=== PATIENT | male | born 1950 | race Caucasian/White ===

== ENCOUNTER 2016-10-04 15:34 | Emergency (ER) | payer MEDICARE, OTHER ==
[2016-10-04 15:57] VITALS: BP 112/72
--- NOTE | 2016-10-04 16:20 | EDM.PDOC ---
ED HPI LOWER BACK PAIN/INJURY - General Chief Complaint: Back Pain or Injury Stated Complaint: BACK PAIN Time Seen by Provider: 10/04/16 15:55 Source of Information: Reports: Patient History Limitations: Reports: No limitations - History of Present Illness INITIAL COMMENTS - FREE TEXT/NARRATIVE: Patient is a 65-year-old male with a history of chronic pain syndrome, chronic left-sided low back with sciatica, chronic sacroiliac joint pain, and degenerative disc disease. Patient complains of left lower back pain with no sciatica. Pain is located along the SI joint. It is worsened with palpation, movement, sitting for extended period of time, and lying on his side. Patient states he's been given steroid injections by a planning management it specialist. Last one was August 23, 2016 with minimal relief. He had MRI obtained September 23, 2016 indicating nerve impingement. His planning management it specialist has plans of burning this nerve on October 13, 2016. Patient was last evaluated August 23, 2016 by a planning management it specialist and prescribed hydrocodone #12 tabs. States he has been taking this medication off-and-on for the discomfort. Has tried ibuprofen and Tylenol recently was with minimal relief. He ran out of the hydrocodone. He does have a prior past history of taking tramadol to which had to be discontinued due increased confusion. He is here for pain therapy. The patient did drive himself to the ED. Denies any numbness or tingling, weakness, incontinence to urine or stool, or any additional complaints. Patient denies fever/chills, incontinence to urine or stool, numbness or tingling to his distal extremities, weakness, gait disturbance, or any additional focal neurological deficits. Patient has a past medical history of hypertension and anxiety. See medication list. Surgical history postlaminectomy syndrome, fusion L3-L5, cervical fusion C5-C6. - Related Data Allergies/ADRs: Allergies Allergy/AdvReac Type Severity Reaction Status Date / Time No Known Allergies Allergy Verified 10/25/15 18:18 Home Meds: Home Meds metFORMIN [Glucophage XR] 500 mg PO DAILY 03/19/14 [History] Lisinopril 10 mg PO DAILY 10/25/15 [History] Escitalopram [Lexapro] 20 mg PO DAILY 10/04/16 [History] amLODIPine [Norvasc] 10 mg PO DAILY 10/04/16 [History] Past Medical History HEENT History: Reports: Impaired vision Cardiovascular History: Reports: Hypertension Respiratory History: Reports: COPD, Other (see below) Other Respiratory History: agent orange exposure Other Musculoskeletal History: Back surgery Endocrine/Metabolic History: Reports: Diabetes, type II, Hypothyroidism - Past Surgical History Musculoskeletal Surgical History: Reports: Other (see below) Other Musculoskeletal Surgeries/Procedures:: lumbar and cervical surgeries Social & Family History - Tobacco Use Smoking Status *Q: Current Every Day Smoker Years of Tobacco use: 40 Packs/Tins Daily: 1 - Caffeine Use Caffeine Use: Reports: Coffee, Soda, Tea - Alcohol Use Days Per Week of Alcohol Use: 0 - Recreational Drug Use Recreational Drug Use: No ED ROS GENERAL - Review of Systems Review Of Systems: See Below GI/Abdominal: Reports: No symptoms : Reports: no symptoms Musculoskeletal: Reports: back pain Neurological: Denies: Numbness, Paresthesia, Tingling ED EXAM,LOWER BACK PAIN/INJURY - Physical Exam Exam: See Below Exam Limited By: No limitations General Appearance: alert, WD/WN, mild distress Ears: hearing grossly normal Throat/Mouth: Normal voice, No airway compromise Neck: normal inspection Respiratory/Chest: no respiratory distress, lungs clear, normal breath sounds Cardiovascular: normal peripheral pulses, regular rate, rhythm, no murmur GI/Abdominal: normal bowel sounds, soft, non tender, no organomegaly, no distention Back Exam: other (pain to the right SI joint. ). No: paraspinal tenderness, vertebral tenderness Extremities: normal inspection, normal range of motion, non-tender, no pedal edema, normal capillary refill Neurological: alert, normal mood/affect, normal dorsiflexion, normal plantar flexion, normal gait, no motor/sensory deficits, oriented x 3. No: straight leg raise (L), straight leg raise (R), difficulty walking Psychiatric: normal affect, normal mood Skin Exam: Warm, Dry, Intact, Normal color Course - Vital Signs Last Recorded V/S: Last Vital Signs Temp 98.3 F 10/04/16 15:51 Pulse 84 10/04/16 15:51 Resp 18 10/04/16 15:51 BP 112/72 10/04/16 15:51 Pulse Ox 96 10/04/16 15:51 - Re-Assessments/Exams Free Text/Narrative Re-Assessment/Exam: Pain to the right lower back most probably along the SI joint. He is known back issues and is requiring nerve burning to relieve the discomfort. He ran out of the hydrocodone and thus we'll provided a short course of [place] for pain therapy. Patient will be discharged home as instructed. Departure - Departure Time of Disposition: 16:19 Disposition: Home, Self-Care 01 Condition: good Clinical Impression: Sacroiliac joint pain Low back pain Qualifiers: Chronicity: unspecified Back pain laterality: left Sciatica presence: without sciatica Qualified Code(s): M54.5 - Low back pain Instructions: Back Pain, Adult, [id number], Pain Medicine Instructions, Easy- to-Read Forms: ED Department Discharge Additional Instructions: I have prescribed hydrocodone 5/325. Take one tab every 6 hours as needed for pain. Suggest taking ibuprofen 600 mg every 6 hours and Tylenol 650 mg every 6 hours in alternating fashion. Utilize warm compresses, biofreeze, and massage as needed to relieve pain. Refrain from any activities that cause worsening pain. No driving while taking the Arlington. Suggest follow up with your primary care provider for additional pain therapies. ED will not refill any more chronic pain medications. Return to the ED if develop fever , incontinence to urine or stool, weakness, numbness or tingling, difficulty walking, or any additional neurological symptoms.
== END 2016-10-04 16:30 | disposition home or self-care (01) ==
LOC: JD.ED 15:34
DX: M54.5 Low back pain (principal); M53.3 Sacrococcygeal disorders, not elsewhere classified; I10 Essential (primary) hypertension; J44.9 Chronic obstructive pulmonary disease, unspecified; E11.9 Type 2 diabetes mellitus without complications; E03.9 Hypothyroidism, unspecified; F17.210 Nicotine dependence, cigarettes, uncomplicated; Z79.84 Long term (current) use of oral hypoglycemic drugs; Z79.899 Other long term (current) drug therapy
CPT/HCPCS: 99283

== ENCOUNTER 2017-01-24 17:01 | Emergency (ER) | payer MEDICARE, OTHER ==
[2017-01-24 17:11] VITALS: BP 128/85
[2017-01-24] MEDS ORDERED: HYDROmorphone 0.5 MG/0.5 ML Syringe IM ONE (18:34)
--- NOTE | 2017-01-24 18:38 | EDM.PDOC ---
ED HPI GENERAL MEDICAL PROBLEM - General Chief Complaint: Lower Extremity Injury/Pain Stated Complaint: LEFT HIP PAIN Time Seen by Provider: 01/24/17 18:28 Source of Information: Reports: Patient History Limitations: Reports: No Limitations - History of Present Illness INITIAL COMMENTS - FREE TEXT/NARRATIVE: Patient is a 66-year-old male who presents ED complaining of left posterior pelvis pain. Patient states he was walking in the garage and slipped on area that had WD 40 on the floor from child oiling his chain. Landed on his left buttocks. States the pain is constant worsen with ambulation and palpation. He was able to ambulate into the ED on its own accord. Denies hitting his head nor complaining of any neck/back pain. Pain is a 10 out of 10. Denies n/v, n/t, swelling, bruising, or any additional complaints. Left Hip Pain Score (Numeric/FACES): 8 - Related Data Allergies Allergy/AdvReac Type Severity Reaction Status Date / Time No Known Allergies Allergy Verified 01/24/17 17:11 Home Meds: Home Meds metFORMIN [Glucophage XR] 500 mg PO DAILY 03/19/14 [History] Lisinopril 10 mg PO DAILY 10/25/15 [History] Escitalopram [Lexapro] 20 mg PO DAILY 10/04/16 [History] amLODIPine [Norvasc] 10 mg PO DAILY 10/04/16 [History] Acetaminophen/HYDROcodone [Clifford 325-5 MG] 1 tab PO Q6H PRN #12 tablet 01/24/17 [Rx] Aspirin 81 mg PO ASDIRECTED 01/24/17 [History] Past Medical History HEENT History: Reports: Impaired Vision Cardiovascular History: Reports: Hypertension Respiratory History: Reports: COPD, Other (See Below) Other Respiratory History: agent orange exposure Other Musculoskeletal History: Back surgery Endocrine/Metabolic History: Reports: Diabetes, Type II, Hypothyroidism - Past Surgical History Musculoskeletal Surgical History: Reports: Other (See Below) Social & Family History - Tobacco Use Smoking Status *Q: Current Every Day Smoker Years of Tobacco use: 40 Packs/Tins Daily: 0.5 - Caffeine Use Caffeine Use: Reports: Coffee, Soda, Tea - Alcohol Use Days Per Week of Alcohol Use: 0 - Recreational Drug Use Recreational Drug Use: No Review of Systems - Review of Systems Review Of Systems: ROS reveals no pertinent complaints other than HPI. ED EXAM, GENERAL - Physical Exam Exam: See Below Exam Limited By: No Limitations General Appearance: Alert, WD/WN, Moderate Distress Ears: Hearing Grossly Normal Nose: Normal Inspection Throat/Mouth: Normal Inspection, Normal Oropharynx, Normal Voice, No Airway Compromise Head: Atraumatic, Normocephalic Neck: Normal Inspection, Supple, Non-Tender, Full Range of Motion Respiratory/Chest: No Respiratory Distress, Lungs Clear, Normal Breath Sounds, No Accessory Muscle Use, Chest Non-Tender Cardiovascular: Normal Peripheral Pulses, Regular Rate, Rhythm Peripheral Pulses: 2+: Radial (L) Back Exam: Normal Inspection, Full Range of Motion. No: Paraspinal Tenderness, Vertebral Tenderness Extremities: Normal Inspection, Non-Tender, No Pedal Edema, Normal Capillary Refill, Other (Pain to the left si joint with palpation. no bony abdomen eyes, bruising, swelling) Neurological: Alert, Oriented, CN II-XII Intact, Normal Cognition, No Motor/ Sensory Deficits Psychiatric: Normal Affect, Normal Mood Skin Exam: Warm, Dry, Intact, Normal Color, No Rash Course - Vital Signs Last Recorded V/S: Last Vital Signs Temp 98.7 F 01/24/17 17:09 Pulse 96 01/24/17 17:09 Resp 16 01/24/17 17:09 BP 128/85 01/24/17 17:09 Pulse Ox 94 L 01/24/17 17:09 - Orders/Labs/Meds Orders: Active Orders 24 hr Category Date Time Status Pelvis 1V or 2V [CR] Stat Exams 01/24/17 18:34 Taken Meds: Medications Discontinued Medications Generic Name Dose Route Start Last Admin Trade Name Krishan PRN Reason Stop Dose Admin Hydromorphone HCl 0.5 mg 01/24/17 18:34 01/24/17 18:47 Dilaudid IM 01/24/17 18:35 0.5 mg ONETIME ONE Administration - Re-Assessments/Exams Free Text/Narrative Re-Assessment/Exam: Ordered x-ray of the pelvis. For pain ordered Dilaudid 0.5 mg IM. 01/24/17 19:37 X-ray of the pelvis reviewed with . No acute findings. Reassessment, pain has improved with the above therapies. He is arranging a ride. Discharge with instructions as documented. Departure - Departure Time of Disposition: 19:38 Disposition: Home, Self-Care 01 Condition: Good Clinical Impression: Contusion of buttock Qualifiers: Encounter type: initial encounter Qualified Code(s): S30.0XXA - Contusion of lower back and pelvis, initial encounter - Discharge Information Prescriptions: Acetaminophen/HYDROcodone [Clifford 325-5 MG] 1 tab PO Q6H PRN #12 tablet PRN Reason: Pain (Severe 7-10) Instructions: Pain Medicine Instructions, [id number] Referrals: Purvi Orourke PATTERN FITTER [Primary Care Provider] - Forms: ED Department Discharge Additional Instructions: No fractures identified on x-ray of the pelvis. Treatment is symptomatic care only including ice to affected area 4-6 times daily, 20 minutes in duration, do not apply ice directly on the skin. Take Tylenol and ibuprofen in alternating fashion for pain. For severe pain take Clifford one tab every 6 hours as needed. No driving this evening nor while taking the Clifford due to the sedative side effects. Follow-up with PCP as needed in the next few days if symptoms have not drastically improved. Return to the ED for any new or worsening symptoms. - My Orders Last 24 Hours: My Active Orders 01/24/17 18:34 Pelvis 1V or 2V [CR] Stat - Assessment/Plan Last 24 Hours: My Active Orders 01/24/17 18:34 Pelvis 1V or 2V [CR] Stat
--- NOTE | 2017-01-25 10:28 | CR ---
Pelvis: AP view of the pelvis was obtained. Comparison: No previous pelvis exam. Previous lower lumbar spine surgery is seen with degenerative change. Joint spaces are maintained within both hips. Slight osteophytes are seen off the femoral heads of both hips. Bony structures are osteopenic. Nothing acute is identified. Impression: 1. Findings as noted above. No acute abnormality is identified on AP pelvis study. Diagnostic code #2
== END 2017-01-24 19:50 | disposition home or self-care (01) ==
LOC: JD.ED 17:01
DX: S30.0XXA Contusion of lower back and pelvis, initial encounter (principal); I10 Essential (primary) hypertension; J44.9 Chronic obstructive pulmonary disease, unspecified; E11.9 Type 2 diabetes mellitus without complications; E03.9 Hypothyroidism, unspecified; F17.210 Nicotine dependence, cigarettes, uncomplicated; Z79.82 Long term (current) use of aspirin; Z79.84 Long term (current) use of oral hypoglycemic drugs; Z79.899 Other long term (current) drug therapy; W01.0XXA Fall on same level from slipping, tripping and stumbling without subsequent striking against object, initial encounter
CPT/HCPCS: 72170; 96372; 99283; J1170

== ENCOUNTER 2017-09-18 20:09 | Emergency (ER) | payer MEDICARE ==
[2017-09-18 20:28] VITALS: BP 140/85
[2017-09-18] MEDS ORDERED: Ketorolac 30 MG/ML SDV IM ONE (21:09)
--- NOTE | 2017-09-18 22:06 | EDM.PDOC ---
ED HPI GENERAL MEDICAL PROBLEM - General Chief Complaint: Back Pain or Injury Stated Complaint: BACK PAIN Time Seen by Provider: 09/18/17 20:14 Source of Information: Reports: Patient, Old Records History Limitations: Reports: No Limitations - History of Present Illness INITIAL COMMENTS - FREE TEXT/NARRATIVE: 66-year-old male presents for evaluation and treatment of low back pain. Patient has chronic low back pain. He has had 2 back surgeries, the first in 1994 and the second 2014. Additionally, he had neck surgery in 2013. Patient reports last year he was seen in [place] and had a nerve cauterized in his low back. Says that the pain is starting to return from that procedure. He is currently taking tramadol which is prescribed to him by his primary care provider at the [place] [facility]. He states that around 3:00 he quits taking the tramadol because it causes nightmares. He is not taking any medications including no tramadol today. patient reports that the back pain feels like it is worsening. He describes pain in the low back with radiation into his left leg. No fevers, chills, nausea , vomiting, numbness, tingling, urinary incontinence or scrotal incontinence. No recent trauma to the back. Patient is here with his son. He states he would not come to the ER if his son did not need to check in as well. Duration: Chronic Location: Reports: Back, Lower Extremity, Left Left Lower Back Pain Score (Numeric/FACES): 8 - Related Data Allergies Allergy/AdvReac Type Severity Reaction Status Date / Time No Known Allergies Allergy Verified 01/24/17 17:11 Home Meds: Home Meds metFORMIN [Glucophage XR] 500 mg PO DAILY 03/19/14 [History] Lisinopril 10 mg PO DAILY 10/25/15 [History] Escitalopram [Lexapro] 20 mg PO DAILY 10/04/16 [History] amLODIPine [Norvasc] 10 mg PO DAILY 10/04/16 [History] Aspirin 81 mg PO ASDIRECTED 01/24/17 [History] Orphenadrine [Norflex] 100 mg PO BID PRN #20 tab.er 09/18/17 [Rx] traMADol [Ultram] 50 mg PO BID 09/18/17 [History] Past Medical History HEENT History: Reports: Impaired Vision Cardiovascular History: Reports: Hypertension Respiratory History: Reports: COPD, Other (See Below) Other Respiratory History: agent orange exposure Other Musculoskeletal History: Back surgery Endocrine/Metabolic History: Reports: Diabetes, Type II - Past Surgical History Musculoskeletal Surgical History: Reports: Other (See Below) Social & Family History - Tobacco Use Smoking Status *Q: Current Every Day Smoker Years of Tobacco use: 50 Packs/Tins Daily: 1.5 - Caffeine Use Caffeine Use: Reports: Coffee, Soda - Alcohol Use Days Per Week of Alcohol Use: 0 - Recreational Drug Use Recreational Drug Use: No ED ROS GENERAL - Review of Systems Review Of Systems: See Below Constitutional: Denies: Fever, Chills GI/Abdominal: Denies: Nausea, Stool Incontinence, Vomiting : Denies: Incontinence Musculoskeletal: Reports: Back Pain (low back radiating into left leg). Denies : Neck Pain Neurological: Denies: Numbness, Tingling ED EXAM,LOWER BACK PAIN/INJURY - Physical Exam Exam: See Below Exam Limited By: No Limitations General Appearance: Alert, WD/WN, No Apparent Distress Neck: Normal Inspection, Supple, Non-Tender, Full Range of Motion Respiratory/Chest: No Respiratory Distress, Lungs Clear, Normal Breath Sounds Cardiovascular: Normal Peripheral Pulses, Regular Rate, Rhythm, No Murmur Back Exam: Normal Inspection, Full Range of Motion, Paraspinal Tenderness (L3- L5 left), Other (scars from previous back surgeries present). No: Vertebral Tenderness Extremities: Normal Inspection Neurological: Alert, Normal Mood/Affect, Normal Dorsiflexion, Normal Plantar Flexion, Normal Gait Psychiatric: Normal Affect, Normal Mood Skin Exam: Warm, Dry, Normal Color Course - Vital Signs Last Recorded V/S: Last Vital Signs Temp 36.6 C 09/18/17 20:26 Pulse 80 09/18/17 20:26 Resp 20 09/18/17 20:26 BP 140/85 09/18/17 20:26 Pulse Ox 94 L 09/18/17 20:26 - Orders/Labs/Meds Meds: Medications Discontinued Medications Generic Name Dose Route Start Last Admin Trade Name Freq PRN Reason Stop Dose Admin Ketorolac Tromethamine 30 mg 09/18/17 21:09 09/18/17 21:17 Toradol IM 09/18/17 21:10 30 mg ONETIME ONE Administration - Re-Assessments/Exams Free Text/Narrative Re-Assessment/Exam: 09/18/17 22:03 Patient was searched on the [place] prescription deug registry. 20 prescription from 6 different prescribers within the last year for controlled substances. Most recently had tramadol 50 mg #84 tabs filled on 08-31-17. This was a 28 day supply. Patient is reporting good pain relief with the IM Toradol. Given this is a chronic problem I feel his intracerebral surgeon if he were to return to his primary care provider and discuss this further. Encouraged him to discuss with his primary care provider if he is not tolerating the tramadol. I'll put him on some Norflex this evening. Discharge instructions as documented. Departure - Departure Time of Disposition: 22:03 Disposition: Home, Self-Care 01 Condition: Good Clinical Impression: Back pain Qualifiers: Back pain location: low back pain Chronicity: acute Back pain laterality: left Sciatica presence: without sciatica Qualified Code(s): M54.5 - Low back pain - Discharge Information Prescriptions: Orphenadrine [Norflex] 100 mg PO BID PRN #20 tab.er PRN Reason: Muscle Spasm Instructions: Back Pain, Adult Referrals: Janeth Casanova DO [Primary Care Provider] - Forms: ED Department Discharge Additional Instructions: Take the Norflex 1 Twice a day as needed for back pain and muscle spasms. Recommend Aleve [id number] for pain if not tolerating your tramadol. May continue take her tramadol as needed for severe pain. Follow up with your primary care provider to discuss a different pain regimen if you're having difficulty with the tramadol. Recommend using ice or heat to the back for additional pain relief. Please return to the ER for symptoms change or worsen.
== END 2017-09-18 22:24 | disposition home or self-care (01) ==
LOC: JD.ED 20:09
DX: G89.29 Other chronic pain (principal); M54.5 Low back pain; I10 Essential (primary) hypertension; E11.9 Type 2 diabetes mellitus without complications; F17.210 Nicotine dependence, cigarettes, uncomplicated; J44.9 Chronic obstructive pulmonary disease, unspecified; Z79.84 Long term (current) use of oral hypoglycemic drugs; Z79.899 Other long term (current) drug therapy; Z98.890 Other specified postprocedural states
CPT/HCPCS: 96372; 99283; J1885

== ENCOUNTER 2018-07-16 19:38 | Emergency (ER) | payer MEDICARE ==
[2018-07-16 19:48] VITALS: BP 139/102
[2018-07-16] MEDS ORDERED: Ibuprofen 600 MG Tab PO ONE (20:19)
--- NOTE | 2018-07-16 20:26 | EDM.PDOC ---
ED HPI GENERAL MEDICAL PROBLEM - General Chief Complaint: Back Pain or Injury Stated Complaint: FALL ON ICE Time Seen by Provider: 07/16/18 20:03 Source of Information: Reports: Patient, RN Notes Reviewed, Other (Friend) History Limitations: Reports: No Limitations - History of Present Illness INITIAL COMMENTS - FREE TEXT/NARRATIVE: The patient states that he slipped on ice in his driveway around 19:20, falling backwards, striking his lower back, but not striking his head. He presents with pain to his lower left back and the left side of the back of his neck, along with tingling to the lateral proximal aspect of his left leg, but nowhere else on his left lower extremity. He denies any other injury. The patient reports that he had fusion surgery on his neck and lumbar spine, previously. [facility] - Related Data Allergies Allergy/AdvReac Type Severity Reaction Status Date / Time No Known Allergies Allergy Verified 07/16/18 19:47 Home Meds: Home Meds Acetaminophen [Tylenol Arthritis] 650 mg PO DAILY 07/16/18 [History] Aspirin [Lo-Dose Aspirin EC] 81 mg PO DAILY 07/16/18 [History] Citalopram [Citalopram HBr] 10 mg PO DAILY 07/16/18 [History] Lisinopril [Zestril] 10 mg PO DAILY 07/16/18 [History] amLODIPine Besylate [Amlodipine Besylate] 10 mg PO DAILY 07/16/18 [History] atorvaSTATin [Lipitor] 10 mg PO DAILY 07/16/18 [History] metFORMIN [Glucophage XR] 500 mg PO DAILY 07/16/18 [History] Past Medical History Cardiovascular History: Reports: Hypertension Musculoskeletal History: Reports: Osteoarthritis (spine) Psychiatric History: Reports: Anxiety Endocrine/Metabolic History: Reports: Diabetes, Type II - Past Surgical History Neurological Surgical History: Reports: C-Spine (C5-C6 ACDF), Lumbar Spine (L4- L5 fusion. L3-L4 laminectomy. Left sciatic nerve ablation.) Social & Family History - Tobacco Use Smoking Status *Q: Current Every Day Smoker Years of Tobacco use: 51 Packs/Tins Daily: 1.5 Packs/Tins Daily Comment: Down from 2 ppd - Caffeine Use Caffeine Use: Reports: None - Alcohol Use Alcohol Use History: No - Recreational Drug Use Recreational Drug Use: No - Living Situation & Occupation Living situation: Reports: , with Spouse, with Family (1 son) Occupation: Retired ED ROS GENERAL - Review of Systems Review Of Systems: ROS reveals no pertinent complaints other than HPI. ED EXAM, GENERAL - Physical Exam Exam: See Below Exam Limited By: No Limitations General Appearance: Alert, WD/WN, No Apparent Distress Eye Exam: Bilateral Eye: EOMI, Normal Inspection Ears: Normal External Exam, Hearing Grossly Normal Nose: Normal Inspection Throat/Mouth: Normal Inspection, Normal Lips, Normal Voice, No Airway Compromise Head: Atraumatic, Normocephalic Neck: Normal Inspection, Supple, Tender Lateral (Left only. No visible abnormality). No: Tender Midline Respiratory/Chest: No Respiratory Distress, Lungs Clear, Normal Breath Sounds, No Accessory Muscle Use Cardiovascular: Normal Peripheral Pulses, Regular Rate, Rhythm, No Gallop, No JVD, No Murmur, No Rub Peripheral Pulses: 4+: Radial (L), Radial (R) GI/Abdominal: Normal Bowel Sounds, Soft, Non-Tender, No Organomegaly, No Distention, No Abnormal Bruit, No Mass (Female) Exam: Deferred Rectal (Female) Exam: Deferred Back Exam: Normal Inspection, Full Range of Motion, Paraspinal Tenderness ( Lower left only. No visible abnormality.), Other (Well-healed surgical scars over the lumbar vertebral spinous processes). No: Vertebral Tenderness Extremities: Normal Inspection, Normal Range of Motion, No Pedal Edema, Normal Capillary Refill Neurological: Alert, Oriented, Normal Cognition, Other (The patient reports mild decreased sensation to his proximal lateral left leg. No tenderness to palpation.) Psychiatric: Normal Affect Skin Exam: Warm, Dry, Intact, Normal Color, No Rash Course - Vital Signs Last Recorded V/S: Last Vital Signs Temp 36.7 C 07/16/18 19:45 Pulse 90 07/16/18 19:45 Resp 18 07/16/18 19:45 BP 139/102 H 07/16/18 19:45 Pulse Ox 93 L 07/16/18 19:45 - Orders/Labs/Meds Meds: Medications Discontinued Medications Generic Name Dose Route Start Last Admin Trade Name Freq PRN Reason Stop Dose Admin Ibuprofen 600 mg 07/16/18 20:19 07/16/18 20:23 Motrin PO 07/16/18 20:20 600 mg ONETIME ONE Administration - Re-Assessments/Exams Free Text/Narrative Re-Assessment/Exam: 07/16/18 20:20 On examination, the patient appears to have strained his left neck and contused his lower left back, but I do not find any spinal injury. I offered x-rays of both his neck and his lumbar spine, but he declined, recognizing that nothing is broken. The paresthesia that he is experiencing to his proximal lateral left leg appears to be due to neuropraxia from nerves running through the contused area of his lower back, not due to a leg injury itself. Going forward, I am recommending that the patient take [id number] ibuprofen, get plenty of rest tonight, then resume his usual activities tomorrow. I reassured him that his leg paresthesia will resolve once the inflammation in his lower back resolves. Departure - Departure Time of Disposition: 20:22 Disposition: Home, Self-Care 01 Condition: Good Clinical Impression: Fall from slipping on ice, Neck muscle strain, Contusion of lower back - Discharge Information *PRESCRIPTION DRUG MONITORING PROGRAM REVIEWED*: Not Applicable *COPY OF PRESCRIPTION DRUG MONITORING REPORT IN PATIENT NATACHA: Not Applicable Instructions: Muscle Strain, [id number] Forms: ED Department Discharge Additional Instructions: You were seen in the emergency room after slipping on ice and falling onto your back. Based on your history and physical examination, you had strained the muscles in your left neck, and contused your lower left back, but there are no injuries to the bones in your neck or lower back. The tingling in your left leg is most likely due to inflammation of the nerves running through the contusion in your back, and should resolve once the inflammation in your back goes away. We recommend that you take [id number] ibuprofen, 2-3 tablets (400-600 mg) every 8 hours, with food, as needed for discomfort. Get plenty of rest tonight, then resume your usual activities tomorrow, even though you will still be sore. [facility]. If any other problems, please do not hesitate to return to the ER.
== END 2018-07-16 20:30 | disposition home or self-care (01) ==
LOC: EDSEX → JD.ED 19:38 → MERGE 19:38 → UNMERGE 19:38 → JD.ED 20:30
DX: S16.1XXA Strain of muscle, fascia and tendon at neck level, initial encounter (principal); S30.0XXA Contusion of lower back and pelvis, initial encounter; F17.210 Nicotine dependence, cigarettes, uncomplicated; E11.9 Type 2 diabetes mellitus without complications; I10 Essential (primary) hypertension; F41.9 Anxiety disorder, unspecified; Z79.84 Long term (current) use of oral hypoglycemic drugs; Z79.899 Other long term (current) drug therapy; Z79.82 Long term (current) use of aspirin; W00.0XXA Fall on same level due to ice and snow, initial encounter
CPT/HCPCS: 99283; A9270

== ENCOUNTER 2018-09-29 18:26 | Emergency (ER) | payer MEDICARE ==
[2018-09-29 18:36] VITALS: BP 138/90
[2018-09-29] MEDS ORDERED: Albuterol/Ipratropium 3.0-0.5 MG/3 ML Neb Soln NEB ONE ×2 (18:44→20:04)
--- NOTE | 2018-09-29 19:18 | EDM.PDOC ---
ED HPI GENERAL MEDICAL PROBLEM - General Chief Complaint: Respiratory Problem Stated Complaint: short of breath Time Seen by Provider: 09/29/18 18:29 Source of Information: Reports: Patient History Limitations: Reports: No Limitations - History of Present Illness INITIAL COMMENTS - FREE TEXT/NARRATIVE: 58 y/o M with h/o HTN, HLD, DM2, Agent [place] exposure comes in today for new onset SOB/cough x 1 week. He states he normally can take care of this at home, as it is similar to his other "flare ups of Agent [place]", but states the Mucinex, Albuterol inhaler and nebulizer haven't worked. He thinks this flare up occurred d/t using bleach while cleaning on Wednesday, which caused irritation of his lungs. He states in the past that "cough syrup with Tylenol 3" has worked for him. He also complains of some chest pain, which he states is worse with his cough, better with rest, and tender to palpation. He describes it as a constant ache since Wednesday. He also c/o fatigue, weakness, SOB. Denies F/C, N/V/ D, productive cough, abdominal pain, or other symptoms. No known sick contacts. He denies any lung history such as COPD. He was a 1-1.5ppd smoker x 52 years but quit smoking on Wednesday and is now taking Chantix. No other concerns at this time. [facility]. Chest Pain Score (Numeric/FACES): 7 - Related Data Allergies Allergy/AdvReac Type Severity Reaction Status Date / Time No Known Allergies Allergy Verified 09/29/18 18:32 Home Meds: Home Meds metFORMIN [Glucophage XR] 500 mg PO DAILY 03/19/14 [History] Lisinopril 10 mg PO DAILY 10/25/15 [History] Escitalopram [Lexapro] 20 mg PO DAILY 10/04/16 [History] amLODIPine [Norvasc] 10 mg PO DAILY 10/04/16 [History] Aspirin 81 mg PO ASDIRECTED 01/24/17 [History] Orphenadrine [Norflex] 100 mg PO BID PRN #20 tab.er 09/18/17 [Rx] traMADol [Ultram] 50 mg PO BID 09/18/17 [History] Acetaminophen [Tylenol Arthritis] 650 mg PO DAILY 07/16/18 [History] Aspirin [Lo-Dose Aspirin EC] 81 mg PO DAILY 07/16/18 [History] Citalopram [Citalopram HBr] 10 mg PO DAILY 07/16/18 [History] Lisinopril [Zestril] 10 mg PO DAILY 07/16/18 [History] amLODIPine Besylate [Amlodipine Besylate] 10 mg PO DAILY 07/16/18 [History] atorvaSTATin [Lipitor] 10 mg PO DAILY 07/16/18 [History] metFORMIN [Glucophage XR] 500 mg PO DAILY 07/16/18 [History] Past Medical History HEENT History: Reports: Impaired Vision Cardiovascular History: Reports: Hypertension Respiratory History: Reports: COPD, Other (See Below) Other Respiratory History: agent orange exposure Musculoskeletal History: Reports: Osteoarthritis Other Musculoskeletal History: Back surgery Psychiatric History: Reports: Anxiety Endocrine/Metabolic History: Reports: Diabetes, Type II Other Endocrine/Metabolic History: pre-diabetic - Past Surgical History Neurological Surgical History: Reports: C-Spine, Lumbar Spine Social & Family History - Tobacco Use Smoking Status *Q: Current Every Day Smoker Years of Tobacco use: 52 Packs/Tins Daily: 1.5 - Caffeine Use Caffeine Use: Reports: Coffee, None, Soda - Recreational Drug Use Recreational Drug Use: No - Living Situation & Occupation Living situation: Reports: with Family, , with Spouse Occupation: Retired ED ROS GENERAL - Review of Systems Review Of Systems: See Below Constitutional: Reports: Weakness, Fatigue. Denies: Fever, Chills HEENT: Reports: No Symptoms Respiratory: Reports: Shortness of Breath, Pleuritic Chest Pain, Cough. Denies : Sputum Cardiovascular: Reports: Chest Pain (constant ache worse with coughing better with relaxing), Blood Pressure Problem. Denies: Edema, Lightheadedness Endocrine: Reports: Fatigue GI/Abdominal: Denies: Abdominal Pain, Diarrhea, Nausea, Vomiting : Reports: No Symptoms Musculoskeletal: Reports: No Symptoms Skin: Reports: No Symptoms Neurological: Reports: No Symptoms. Denies: Confusion, Dizziness, Headache Psychiatric: Reports: No Symptoms Hematologic/Lymphatic: Reports: No Symptoms Immunologic: Reports: No Symptoms ED EXAM, GENERAL - Physical Exam Exam: See Below Exam Limited By: No Limitations General Appearance: Alert, Mild Distress Eye Exam: Bilateral Eye: EOMI, Normal Inspection, PERRL Ears: Normal External Exam Nose: Normal Inspection, Normal Mucosa, No Blood Throat/Mouth: Normal Inspection, Normal Oropharynx, Normal Voice, No Airway Compromise Head: Atraumatic, Normocephalic Neck: Normal Inspection, Supple, Non-Tender, Full Range of Motion Respiratory/Chest: Lungs Clear, Normal Breath Sounds, No Accessory Muscle Use, Chest Non-Tender. No: No Respiratory Distress (Mild respiratory distress, 89-93 % on RA) Cardiovascular: Normal Peripheral Pulses, Regular Rate, Rhythm GI/Abdominal: Normal Bowel Sounds, Soft, Non-Tender, No Organomegaly, No Distention, No Abnormal Bruit, No Mass Back Exam: Normal Inspection Neurological: Alert, Oriented, CN II-XII Intact, Normal Cognition, Normal Gait, Normal Reflexes, No Motor/Sensory Deficits Psychiatric: Normal Affect, Normal Mood Skin Exam: Warm, Dry, Intact, Normal Color, No Rash Course - Vital Signs Last Recorded V/S: Last Vital Signs Temp 98.9 F 09/29/18 18:32 Pulse 87 09/29/18 18:32 Resp 24 H 09/29/18 18:32 BP 138/90 09/29/18 18:32 Pulse Ox 91 L 09/29/18 20:36 - Orders/Labs/Meds Orders: Active Orders 24 hr Category Date Time Status RT Aerosol Therapy [RC] ASDIRECTED Care 09/29/18 18:44 Active RT Aerosol Therapy [RC] ASDIRECTED Care 09/29/18 20:04 Active CXR [Chest 2V] [CR] Stat Exams 09/29/18 18:38 Taken Labs: Laboratory Tests 09/29/18 09/29/18 Range/Units 19:06 19:06 WBC 12.61 H (4.23-9.07) K/mm3 RBC 5.32 (4.63-6.08) M/mm3 Hgb 16.4 D (13.7-17.5) gm/L Hct 48.4 (40.1-51.0) % MCV 91.0 (79.0-92.2) fl MCH 30.8 (25.7-32.2) pg MCHC 33.9 (32.2-35.5) g/dl RDW Std Deviation 40.9 (35.1-43.9) fL Plt Count 196 (163-337) K/mm3 MPV 9.7 (9.4-12.3) fl Neut % (Auto) 75.3 H (34.0-67.9) % Lymph % (Auto) 13.6 L (21.8-53.1) % [place] % (Auto) 9.0 (5.3-12.2) % Eos % (Auto) 1.6 (0.8-7.0) Baso % (Auto) 0.3 (0.1-1.2) % Neut # (Auto) 9.49 H (1.78-5.38) K/mm3 Lymph # (Auto) 1.71 (1.32-3.57) K/mm3 [place] # (Auto) 1.14 H (0.30-0.82) K/mm3 Eos # (Auto) 0.20 (0.04-0.54) K/mm3 Baso # (Auto) 0.04 (0.01-0.08) K/mm3 Manual Slide Review Normal smear Sodium 135 L (136-145) mEq/L Potassium 3.8 (3.5-5.1) mEq/L Chloride 98 (98-107) mEq/L Carbon Dioxide 29 (21-32) mEq/L Anion Gap 11.8 (5-15) BUN 13 (7-18) mg/dL Creatinine 1.2 (0.7-1.3) mg/dL Est Cr Clr Drug Dosing 59.99 mL/min Estimated GFR (MDRD) > 60 (>60) mL/min BUN/Creatinine Ratio 10.8 L (14-18) Glucose 128 H (80-115) mg/dL Calcium 8.9 (8.5-10.1) mg/dL Total Bilirubin 0.8 (0.2-1.0) mg/dL AST 37 (15-37) U/L ALT 58 (16-63) U/L Alkaline Phosphatase 108 (46-116) U/L C-Reactive Protein 35.8 H* (<1.0) mg/dL Total Protein 7.7 (6.4-8.2) g/dl Albumin 3.1 L (3.4-5.0) g/dl Globulin 4.6 gm/dL Albumin/Globulin Ratio 0.7 L (1-2) Meds: Medications Discontinued Medications Generic Name Dose Route Start Last Admin Trade Name Freq PRN Reason Stop Dose Admin Albuterol/Ipratropium 3 ml 09/29/18 18:44 09/29/18 19:26 Duoneb 3.0-0.5 Mg/3 Ml NEB 09/29/18 18:45 3 ml ONETIME ONE Administration Albuterol/Ipratropium 3 ml 09/29/18 20:04 09/29/18 20:36 Duoneb 3.0-0.5 Mg/3 Ml NEB 09/29/18 20:05 3 ml ONETIME ONE Administration - Re-Assessments/Exams Free Text/Narrative Re-Assessment/Exam: 09/29/18 18:38 Ordered CBC, CMP, CRP, CXR O2 89-91% RA, unsure of baseline--> Duo neb treatment ordered 09/29/18 20:05 CBC shows increased WBC of 12.61- I think this is a stress reaction as he has no other sick symptoms at this time. CMP shows Na 135, Na 135, Glu 128 CRP is extremely elevated at 35.8- I think this may be an acute on chronic issue d/t Agent [place] exposure and new irritation likely 2/2 bleach CXR reviewed by myself and Dr. Palm- nothing acute seen, hyperinflated lungs, pulmonary fibrosis. O2 94% on RA--> Feeling better and chest pain has subsided; Ordered another Duo neb treatment 09/29/18 20:54 Pt is feeling much better and would like to go home. Will send him home with Promethazine w/ codeine for his cough, 20mL total. Departure - Departure Time of Disposition: 20:54 Disposition: Home, Self-Care 01 Condition: Good Clinical Impression: Bronchitis due to fumes and vapors, H/O agent [place] exposure - Discharge Information *PRESCRIPTION DRUG MONITORING PROGRAM REVIEWED*: Not Applicable *COPY OF PRESCRIPTION DRUG MONITORING REPORT IN PATIENT NATACHA: Not Applicable Instructions: How to Use a Nebulizer, Adult, Acute Bronchitis, Adult, Easy-to- Read Referrals: PCP,Not In Area [Primary Care Provider] - Forms: ED Department Discharge Additional Instructions: You were seen in the ED today for shortness of breath and cough for 1 week. Your workup did not show any infection and your chest xray showed inflammation/ scarring, likely acute on chronic. At this time, you are feeling better with 2 doses of nebulizing treatment and your oxygen saturation has improved. Recommend continuing your nebulizing treatment at home. Will also send you home with cough syrup you said worked in the past for you to help alleviate your cough and subsequent chest pain. Recommend close follow up with your primary care physician. Please return to ED if new or worsening symptoms. - My Orders Last 24 Hours: My Active Orders 09/29/18 18:38 CXR [Chest 2V] [CR] Stat 09/29/18 18:44 RT Aerosol Therapy [RC] ASDIRECTED 09/29/18 20:04 RT Aerosol Therapy [RC] ASDIRECTED - Assessment/Plan Last 24 Hours: My Active Orders 09/29/18 18:38 CXR [Chest 2V] [CR] Stat 09/29/18 18:44 RT Aerosol Therapy [RC] ASDIRECTED 09/29/18 20:04 RT Aerosol Therapy [RC] ASDIRECTED
--- NOTE | 2018-09-30 10:54 | CR ---
Chest: Two views of the chest were obtained. Comparison: Prior chest x-ray of 10/25/15. Diffuse increased lung markings are noted. Findings are fairly stable to prior exam. Difficult to exclude mild superimposed bronchitis. Lungs are hyperinflated compatible with emphysematous change. Degenerative endplate spurring is noted throughout the spine. Previous cervical spine surgery is noted. Impression: 1. Emphysematous change. 2. Diffuse increased lung markings most of which appear fairly stable from previous study. Difficult, however to exclude mild superimposed bronchitis if patient has correlating symptoms. Diagnostic code #3
== END 2018-09-29 21:08 | disposition home or self-care (01) ==
LOC: JD.ED 18:26
DX: J68.0 Bronchitis and pneumonitis due to chemicals, gases, fumes and vapors (principal); E11.9 Type 2 diabetes mellitus without complications; I10 Essential (primary) hypertension; F17.210 Nicotine dependence, cigarettes, uncomplicated; Z79.84 Long term (current) use of oral hypoglycemic drugs; Z79.899 Other long term (current) drug therapy
CPT/HCPCS: 36415; 71046; 71046-26; 80053; 85025; 86140; 94640; 99283; 99285-25; J7620-GY

== ENCOUNTER 2018-10-03 09:50 | Emergency (ER) | payer MEDICARE ==
[2018-10-03 10:04] VITALS: BP 127/70
--- NOTE | 2018-10-03 10:09 | EDM.PDOC ---
ED HPI GENERAL MEDICAL PROBLEM - General Chief Complaint: Respiratory Problem Stated Complaint: SOB Time Seen by Provider: 10/03/18 10:03 Source of Information: Reports: Patient History Limitations: Reports: No Limitations - History of Present Illness INITIAL COMMENTS - FREE TEXT/NARRATIVE: 67-year-old male presents to the ED with an acute exacerbation of his COPD. Patient states for the last week he's been 8 hardly able to get his breath on minimal exertion. Hasn't slept well at all at night for the last 2 nights. States dyspnea is much worse if he lies down. Dyspnea is worse on minimal exertion such as walking for the bathroom to the bedroom. He does have a paroxysmal cough but not bringing up any phlegm. No noted fever or chills. Of note the patient stopped smoking 2 weeks ago. Is on Chantix and has no craving for cigarettes. Was seen through the ED 4 days ago and diagnosed with asthma- like symptoms. Treated with a home nebulizer which he uses when necessary and meter dose inhalers. States cough syrup helps a little bit at nighttime so that he can sleep. Appetite is been decreased from normal. He has no known heart disease. Review of labs done from examination the ED 29 of September suggests that he had a mildly elevated white count at 12.61 with 75% neutrophils. However his CRP was markedly elevated at 35.8 suggesting underlying bacterial infection. O2 sats only 88% upon arrival. With rest and not moving he can get 92 -93%. Onset: Gradual Onset Date: 09/26/18 (In terms of gradually become much worse over the last week.) Duration: Day(s):, Getting Worse Location: Reports: Chest (Dyspnea with wheezing. Orthopnea PND.) Quality: Reports: Other Severity: Moderate (Shortness of breath severe) Improves with: Reports: Rest Worsens with: Reports: Movement (Shreya walking from the bedroom to the bathroom makes him dyspneic.) Context: Denies: Activity, Exercise, Lifting, Sick Contact, Trauma, Other Associated Symptoms: Reports: Cough, Loss of Appetite, Malaise, Shortness of Breath, Weakness. Denies: No Other Symptoms, Confusion, Chest Pain (Paroxysmal cough minimally productive of any sputum.), Diaphoresis, Fever/Chills, Headaches , Nausea/Vomiting, Rash, Seizure, Syncope Treatments CLINICAL EVALUATOR: Reports: Other (see below) (Taking small doses of cough syrup.) Bilateral Chest Pain Score (Numeric/FACES): 7 - Related Data Allergies Allergy/AdvReac Type Severity Reaction Status Date / Time No Known Allergies Allergy Verified 10/03/18 09:57 Home Meds: Home Meds metFORMIN [Glucophage XR] 500 mg PO DAILY 03/19/14 [History] Lisinopril 10 mg PO DAILY 10/25/15 [History] Escitalopram [Lexapro] 20 mg PO DAILY 10/04/16 [History] amLODIPine [Norvasc] 10 mg PO DAILY 10/04/16 [History] Aspirin 81 mg PO ASDIRECTED 01/24/17 [History] Orphenadrine [Norflex] 100 mg PO BID PRN #20 tab.er 09/18/17 [Rx] traMADol [Ultram] 50 mg PO BID 09/18/17 [History] Acetaminophen [Tylenol Arthritis] 650 mg PO DAILY 07/16/18 [History] Citalopram [Citalopram HBr] 10 mg PO DAILY 07/16/18 [History] atorvaSTATin [Lipitor] 10 mg PO DAILY 07/16/18 [History] metFORMIN [Glucophage XR] 500 mg PO DAILY 07/16/18 [History] Albuterol/Ipratropium [DuoNeb 3.0-0.5 MG/3 ML] 3 ml NEB Q6H #40 neb 10/03/18 [Rx ] levoFLOXacin [Levaquin] 500 mg PO DAILY #9 tab 10/03/18 [Rx] predniSONE [Deltasone] 20 mg PO ASDIRECTED #18 tablet 10/03/18 [Rx] Past Medical History HEENT History: Reports: Impaired Vision Cardiovascular History: Reports: Hypertension Respiratory History: Reports: COPD, Other (See Below) Other Respiratory History: agent orange exposure Musculoskeletal History: Reports: Osteoarthritis Other Musculoskeletal History: Back surgery Psychiatric History: Reports: Anxiety Endocrine/Metabolic History: Reports: Diabetes, Type II (Currently using diet and metformin for control.) Other Endocrine/Metabolic History: pre-diabetic Oncologic (Cancer) History: Reports: Other (See Below) (Was exposed to Agent [place] while in [place]. So far no cancers have been discovered) - Past Surgical History Neurological Surgical History: Reports: C-Spine, Lumbar Spine Social & Family History - Tobacco Use Smoking Status *Q: Former Smoker (Quit 2 weeks ago. He is still on Chantix daily.) Tobacco Use Within Last Twelve Months: Cigarettes - Caffeine Use Caffeine Use: Reports: Coffee, None, Soda - Living Situation & Occupation Living situation: Reports: with Family, , with Spouse Occupation: Retired ED ROS GENERAL - Review of Systems Review Of Systems: See Below Constitutional: Reports: Malaise, Weakness, Fatigue, Decreased Appetite. Denies : Fever, Chills HEENT: Reports: Glasses Respiratory: Reports: Shortness of Breath, Wheezing, Cough. Denies: Pleuritic Chest Pain, Sputum, Hemoptysis, Other Cardiovascular: Reports: Blood Pressure Problem, Dyspnea on Exertion, Other ( PND and orthopnea.). Denies: No Symptoms, Claudication, Lightheadedness, Orthopnea Endocrine: Reports: Fatigue GI/Abdominal: Reports: Decreased Appetite : Reports: No Symptoms Musculoskeletal: Reports: Joint Pain (These hips neck and low back at times has had low back surgery in 2014 with fusion. Has had cervical neck fusion at C5-C6 level.) Skin: Reports: No Symptoms Neurological: Reports: No Symptoms Psychiatric: Reports: No Symptoms Hematologic/Lymphatic: Reports: No Symptoms Immunologic: Reports: No Symptoms ED EXAM, GENERAL - Physical Exam Exam: See Below Exam Limited By: No Limitations General Appearance: Alert, WD/WN, Mild Distress, Other (O2 sats came up from 88 % to 9192% at rest.) Eye Exam: Bilateral Eye: Normal Inspection, PERRL Ears: Normal TMs Throat/Mouth: Other Head: Atraumatic Neck: Normal Inspection, Supple, Non-Tender, Full Range of Motion. No: Carotid Bruit, Lymphadenopathy (L), Lymphadenopathy (R) Respiratory/Chest: Decreased Breath Sounds (Diffuse wheezing throughout all low lung harrison. Decreased air into the lower 30% of lung harrison posteriorly), Wheezing. No: Chest Non-Tender Cardiovascular: Regular Rate, Rhythm, No Edema, No Gallop, No Murmur, No Rub. No: Normal Peripheral Pulses, JVD Peripheral Pulses: 2+: Posterior Tibial (L), Posterior Tibial (R), Dorsalis Pedis (L), Dorsalis Pedis (R) GI/Abdominal: Normal Bowel Sounds, Soft, Non-Tender, No Organomegaly, Distended (Mildly distended upper abdomen with tympany compatible with aerophagia.) Back Exam: Normal Inspection, Full Range of Motion. No: CVA Tenderness (L), CVA Tenderness (R) Extremities: Normal Inspection, Normal Range of Motion, Non-Tender, No Pedal Edema Neurological: Alert, Oriented, CN II-XII Intact, Normal Cognition, Normal Gait Psychiatric: Normal Affect, Normal Mood Skin Exam: Warm, Dry, Intact, Normal Color, No Rash EKG INTERPRETATION EKG Date: 10/03/18 Time: 10:34 Rhythm: NSR Rate (Beats/Min): 77 Wing: Normal P-Wave: Enlarged QRS: Other (Left atrial hypertrophy pattern. There are Q waves in leads V1 and V2 suggestive of an old anteroseptal myocardial infarction. Borderline criteria for left ventricular hypertrophy pattern.) ST-T: Other (Diffuse early repolarization pattern without signs of ischemia.) QT: Normal EKG Interpretation Comments: Abnormal ECG Course - Vital Signs Last Recorded V/S: Last Vital Signs Temp 36.3 C 10/03/18 10:01 Pulse 77 10/03/18 10:01 Resp 16 10/03/18 10:01 BP 127/70 10/03/18 10:01 Pulse Ox 91 L 10/03/18 11:48 - Orders/Labs/Meds Orders: Active Orders 24 hr Category Date Time Status EKG Documentation Completion [RC] STAT Care 10/03/18 10:09 Active Oxygen Therapy [RC] ASDIRECTED Care 10/03/18 10:11 Active Peripheral IV Care [RC] . DIRECTED Care 10/03/18 10:10 Active RT Aerosol Therapy [RC] ASDIRECTED Care 10/03/18 11:23 Active RT Aerosol Therapy [RC] ASDIRECTED Care 10/03/18 11:56 Inactive Peripheral IV Insertion Adult [OM.PC] Stat Oth 10/03/18 10:10 Ordered Labs: Laboratory Tests 10/03/18 10/03/18 10/03/18 Range/Units 10:26 10:26 10:26 WBC 13.44 H (4.23-9.07) K/mm3 RBC 5.18 (4.63-6.08) M/mm3 Hgb 15.8 (13.7-17.5) gm/L Hct 47.1 (40.1-51.0) % MCV 90.9 (79.0-92.2) fl MCH 30.5 (25.7-32.2) pg MCHC 33.5 (32.2-35.5) g/dl RDW Std Deviation 39.9 (35.1-43.9) fL Plt Count 273 (163-337) K/mm3 MPV 9.8 (9.4-12.3) fl Neutrophils % (Manual) 81 H (40-60) % Band Neutrophils % 0 (0-10) % Lymphocytes % (Manual) 12 L (20-40) % Atypical Lymphs % 0 % Monocytes % (Manual) 5 (2-10) % Eosinophils % (Manual) 2 (0.8-7.0) % Basophils % (Manual) 0 L (0.2-1.2) Platelet Estimate Adequate RBC Morph Comment Normal ESR 76 H (0-15) mm/hr Sodium 136 (136-145) mEq/L Potassium 4.0 (3.5-5.1) mEq/L Chloride 101 (98-107) mEq/L Carbon Dioxide 31 (21-32) mEq/L Anion Gap 8.0 (5-15) BUN 7 (7-18) mg/dL Creatinine 1.0 (0.7-1.3) mg/dL Est Cr Clr Drug Dosing 71.99 mL/min Estimated GFR (MDRD) > 60 (>60) mL/min BUN/Creatinine Ratio 7.0 L (14-18) Glucose 164 H (80-115) mg/dL Calcium 8.9 (8.5-10.1) mg/dL Magnesium 1.9 (1.8-2.4) mg/dl Total Bilirubin 0.6 (0.2-1.0) mg/dL AST 46 H (15-37) U/L ALT 110 H (16-63) U/L Alkaline Phosphatase 109 (46-116) U/L Troponin I < 0.017 (0.00-0.056) ng/mL C-Reactive Protein 19.0 H* (<1.0) mg/dL NT-Pro-B Natriuret Pep (0-125) pg/mL Total Protein 7.5 (6.4-8.2) g/dl Albumin 2.7 L (3.4-5.0) g/dl Globulin 4.8 gm/dL Albumin/Globulin Ratio 0.6 L (1-2) 10/03/ Range/Units 10:26 WBC (4.23-9.07) K/mm3 RBC (4.63-6.08) M/mm3 Hgb (13.7-17.5) gm/L Hct (40.1-51.0) % MCV (79.0-92.2) fl MCH (25.7-32.2) pg MCHC (32.2-35.5) g/dl RDW Std Deviation (35.1-43.9) fL Plt Count (163-337) K/mm3 MPV (9.4-12.3) fl Neutrophils % (Manual) (40-60) % Band Neutrophils % (0-10) % Lymphocytes % (Manual) (20-40) % Atypical Lymphs % % Monocytes % (Manual) (2-10) % Eosinophils % (Manual) (0.8-7.0) % Basophils % (Manual) (0.2-1.2) Platelet Estimate RBC Morph Comment ESR (0-15) mm/hr Sodium (136-145) mEq/L Potassium (3.5-5.1) mEq/L Chloride (98-107) mEq/L Carbon Dioxide (21-32) mEq/L Anion Gap (5-15) BUN (7-18) mg/dL Creatinine (0.7-1.3) mg/dL Est Cr Clr Drug Dosing mL/min Estimated GFR (MDRD) (>60) mL/min BUN/Creatinine Ratio (14-18) Glucose (80-115) mg/dL Calcium (8.5-10.1) mg/dL Magnesium (1.8-2.4) mg/dl Total Bilirubin (0.2-1.0) mg/dL AST (15-37) U/L ALT (16-63) U/L Alkaline Phosphatase (46-116) U/L Troponin I (0.00-0.056) ng/mL C-Reactive Protein (<1.0) mg/dL NT-Pro-B Natriuret Pep 627 H (0-125) pg/mL Total Protein (6.4-8.2) g/dl Albumin (3.4-5.0) g/dl Globulin gm/dL Albumin/Globulin Ratio (1-2) Meds: Medications Discontinued Medications Generic Name Dose Route Start Last Admin Trade Name Freq PRN Reason Stop Dose Admin Albuterol/Ipratropium 3 ml 10/03/18 11:22 10/03/18 11:48 Duoneb 3.0-0.5 Mg/3 Ml NEB 10/03/18 11:23 3 ml ONETIME ONE Administration Levofloxacin 500 mg 10/03/18 11:23 10/03/18 11:33 Levaquin PO 10/03/18 11:24 500 mg ONETIME ONE Administration Methylprednisolone Sodium Succinate 125 mg 10/03/18 10:11 10/03/18 10:17 Solu-Medrol IVPUSH 10/03/18 10:12 125 mg ONETIME ONE Administration Sodium Chloride 10 ml 10/03/18 10:10 10/03/18 10:18 Saline Flush FLUSH 10 ml ASDIRECTED PRN Administration Keep Vein Open - Radiology Interpretation Free Text/Narrative:: 67-year-old male returns to the ED 4 days after being seen last for similar problem. Patient is expressing dyspnea on minimal exertion. Much worse over the last week or so. States he does have a paroxysmal cough which is for the most part nonproductive. He uses a home nebulizer as meter dose inhalers and is getting no relief of the dyspnea. Does have a paroxysmal cough which is nonproductive. Diagnosis COPD but stopped smoking 2 weeks ago and is on Chantix with no cravings apparently for cigarettes. [id number] history of smoking. Examination reveals diffuse wheezing throughout all lung harrison with decreased air entry to the lower lung harrison by 30%. Plan his sats are low at 88% and he' ll be placed on 2 L/m of nasal cannula. Will give him Solu-Medrol 125 mg IV. Investigations to be a DuoNeb. He will then have routine labs performed and a chest x-ray. Question whether as a cardiac component to his illness. - Re-Assessments/Exams Free Text/Narrative Re-Assessment/Exam: 10/03/18 11:20 chest x-ray reveals statement of COPD with chronic increased lung markings. There is slight focal density within the left midlung possibly due to superimposed acute bronchitis versus early pneumonia. Lungs are hyperinflated compatible with emphysematous change. Bony structures are osteopenic. 10/03/18 11:22 Labs reveal an elevated white count at 13.44 with a left shift of 81% neutrophils and no band cells reported. Hemoglobin is 15.8 with hematocrit of 47.1. Blood counts 273,000. Sodium was 136 with a potassium of 4.0. Toward 11 with a bicarbonate 31. Anion gap is 8.0. BUN is 7 with a creatinine of 1.0 estimated GFR is greater than 60. Glucose is 164. Calcium is 8.9. A niece and 1.9. Total bilirubin is 0.6. AST is 46 with an ALT of 110. Alk phosphatase 109. Troponin I is less than 0.017. C-reactive protein today is 19.0. BNP is 67. Total protein 7.5 with an albumin fraction slightly low at 2.7. 10/03/18 13:59 therefore patient does not appear to have any cardiac component to his wheezing. Appears to have a very early pneumonia in the left lung but he has that there is diffuse pulmonary fibrosis in both lower lobes. States his O2 sats on a good day around 88%. He therefore does not wish to stay in the hospital. Plan will be to place him on prednisone 20 mg twice daily for the next 6 days and then once in the morning for another 6 days. He feels much improved after the albuterol nebulizer treatment and therefore we will use this at home as he has a home nebulizer. Plan will be to use nebulizer every 6-8 hours as needed for relief of dyspnea and her wheezing. I'm also got a placement Levaquin 500 mg once daily for the next 9 days first tablet was provided in the ED. Advise follow-up with the [place] clinic in 10 days' time Departure - Departure Time of Disposition: 12:08 Disposition: Home, Self-Care 01 Condition: Fair Clinical Impression: COPD exacerbation, Pneumonitis, Pneumonia - Discharge Information *PRESCRIPTION DRUG MONITORING PROGRAM REVIEWED*: Not Applicable *COPY OF PRESCRIPTION DRUG MONITORING REPORT IN PATIENT NATACHA: Not Applicable Prescriptions: Albuterol/Ipratropium [DuoNeb 3.0-0.5 MG/3 ML] 3 ml NEB Q6H #40 neb levoFLOXacin [Levaquin] 500 mg PO DAILY #9 tab predniSONE [Deltasone] 20 mg PO ASDIRECTED #18 tablet Instructions: Chronic Obstructive Pulmonary Disease Exacerbation, [id number] , Pneumonitis Referrals: Olive Rajan MD [Primary Care Provider] - Forms: ED Department Discharge Additional Instructions: Evaluation the emergency room today in regards to worsening shortness of breath and wheezing over the last week or more. Is to x-ray is much worse than the one done 4 days ago suggesting that you do have significant pulmonary fibrosis and looks like you are developing pneumonia in the left upper lung field. You felt better after initial treatment with DuoNeb and Solu-Medrol. Treatment at home is to continue neb treatments DuoNeb 1 nebulizer every 6-8 hours for the next 10 days to improve your breathing and ease wheezing. Prednisone 20 mg with breakfast and supper for the next 6 days and then once in the morning only for another 6 days to reduce inflammation in the lungs. Thirdly antibiotic Levaquin 500 mg once daily for the next 9 days as the first tablet was given in the ED today. Next would be due tomorrow morning or dinner. [facility] - My Orders Last 24 Hours: My Active Orders 10/03/18 10:09 EKG Documentation Completion [RC] STAT 10/03/18 10:10 Peripheral IV Care [RC] . DIRECTED Peripheral IV Insertion Adult [OM.PC] Stat 10/03/18 10:11 Oxygen Therapy [RC] ASDIRECTED 10/03/18 11:23 RT Aerosol Therapy [RC] ASDIRECTED 10/03/18 11:56 RT Aerosol Therapy [RC] ASDIRECTED - Assessment/Plan Last 24 Hours: My Active Orders 10/03/18 10:09 EKG Documentation Completion [RC] STAT 10/03/18 10:10 Peripheral IV Care [RC] . DIRECTED Peripheral IV Insertion Adult [OM.PC] Stat 10/03/18 10:11 Oxygen Therapy [RC] ASDIRECTED 10/03/18 11:23 RT Aerosol Therapy [RC] ASDIRECTED 10/03/18 11:56 RT Aerosol Therapy [RC] ASDIRECTED
[2018-10-03] MEDS ORDERED: Sodium Chloride 0.9% 10 ML Syringe FLUSH PRN (10:10)
[2018-10-03] MEDS ORDERED: methylPREDNISolone Sodium Succinate 125 MG/2 ML SDV IVPUSH ONE (10:11)
--- NOTE | 2018-10-03 11:13 | CR ---
Chest: Portable view of the chest was obtained. Comparison: Prior chest x-ray of 09/29/18. Heart size and mediastinum are within normal limits for portable technique. Lung markings are diffusely increased which mostly appear to be chronic with slight increased density change within the left mid lung possibly due to superimposed acute bronchitis. No alveolar type densities are seen. Lungs are hyperinflated compatible with emphysematous change. Bony structures are osteopenic. Previous cervical spine surgery is noted. Impression: 1. Chronic increased lung markings. Slight focal density within the left midlung possibly due to superimposed acute bronchitis. 2. Emphysematous change. Diagnostic code #3
[2018-10-03] MEDS ORDERED: Albuterol/Ipratropium 3.0-0.5 MG/3 ML Neb Soln NEB ONE ×2 (11:22→11:56)
[2018-10-03] MEDS ORDERED: Levofloxacin 250 MG Tab PO ONE (11:23)
== END 2018-10-03 12:41 | disposition home or self-care (01) ==
LOC: JD.ED 09:50
DX: J18.9 Pneumonia, unspecified organism (principal); J44.1 Chronic obstructive pulmonary disease with (acute) exacerbation; I10 Essential (primary) hypertension; E11.9 Type 2 diabetes mellitus without complications; Z79.899 Other long term (current) drug therapy; Z79.84 Long term (current) use of oral hypoglycemic drugs
CPT/HCPCS: 36415; 71045; 80053; 83735; 83880; 84484; 85007; 85027; 85652; 86140; 93005; 94640; 96374; 99285; A9270; J2930; 93010; 99284; J7620-GY

== ENCOUNTER 2019-05-12 13:18 | Emergency (ER) | payer MEDICARE ==
[2019-05-12 13:37] VITALS: BP 138/86; PULSE 85
--- NOTE | 2019-05-12 13:44 | EDM.PDOC ---
ED HPI GENERAL MEDICAL PROBLEM - General Chief Complaint: Lower Extremity Injury/Pain Stated Complaint: FALL HIP INJURY Time Seen by Provider: 05/12/19 13:38 Source of Information: Reports: Patient History Limitations: Reports: No Limitations - History of Present Illness INITIAL COMMENTS - FREE TEXT/NARRATIVE: 68-year-old male states he was stepping out of his vehicle and had one hand still almost doing well when he slipped and fell and ended up underneath the vehicle. He landed very hard on his left hip. He waited a couple hours before he had his son come over and help him get to the ED. He states he is able to weight-bear by PEG laying. Pain is primarily felt in his right inguinal fold no pelvic fracture. He did hurt his left shoulder but has full forward flexion and abduction. Strained his neck but did not hit his head or ribs. He occurred about 2 hours before coming to the ED Onset: Today Onset Date: 05/12/19 Onset Time: 11:30 Duration: Hour(s): Location: Reports: Neck, Upper Extremity, Left (Left shoulder over the proximal humerus and deltoid area), Lower Extremity, Left (Left hip and inguinal area or groin.) Quality: Reports: Ache, Pressure Severity: Moderate Improves with: Reports: Rest Worsens with: Reports: Other (Or trying to weight-bear), Movement Context: Reports: Trauma (Slipped and fell while getting out of his vehicle on the ice.). Denies: Activity, Exercise, Lifting, Sick Contact Associated Symptoms: Reports: Cough, cough w sputum (chronic cough from cigarette smoking), Loss of Appetite, Malaise. Denies: Confusion, Chest Pain, Diaphoresis, Fever/Chills, Nausea/Vomiting, Rash, Seizure, Shortness of Breath, Syncope Treatments [employer]: Reports: Other (see below) (None.) Left Hip Pain Score (Numeric/FACES): 8 - Related Data Allergies Allergy/AdvReac Type Severity Reaction Status Date / Time No Known Allergies Allergy Verified 05/12/19 13:38 Home Meds: Home Meds amLODIPine [Norvasc] 10 mg PO DAILY 10/04/16 [History] Aspirin 81 mg PO ASDIRECTED 01/24/17 [History] Acetaminophen [Tylenol Arthritis] 650 mg PO DAILY 07/16/18 [History] metFORMIN [Glucophage XR] 500 mg PO DAILY 07/16/18 [History] Hydrocodone/Acetaminophen [Hydrocodon-Acetaminophen 5-325] 1 - 2 each PO Q4H # 20 tablet 05/12/19 [Rx] Past Medical History HEENT History: Reports: Impaired Vision Cardiovascular History: Reports: Hypertension Respiratory History: Reports: COPD, Other (See Below) Other Respiratory History: agent orange exposure Musculoskeletal History: Reports: Osteoarthritis Other Musculoskeletal History: Back surgery Psychiatric History: Reports: Anxiety Endocrine/Metabolic History: Reports: Diabetes, Type II (Currently using diet and metformin for control.) Other Endocrine/Metabolic History: pre-diabetic Oncologic (Cancer) History: Reports: Other (See Below) (Was exposed to Agent [place] while in [place]. So far no cancers have been discovered) - Past Surgical History Neurological Surgical History: Reports: C-Spine, Lumbar Spine Social & Family History - Caffeine Use Caffeine Use: Reports: Coffee, None, Soda - Living Situation & Occupation Living situation: Reports: with Family, , with Spouse Occupation: Retired Review of Systems - Review of Systems Review Of Systems: See Below Constitutional: Denies: Chills, Diaphoresis, Weakness, Other Eyes: Reports: Glasses Ears: Reports: No Symptoms Nose: Reports: No Symptoms Mouth/Throat: Reports: No Symptoms Respiratory: Reports: Shortness of Breath, Wheezing, Cough, Sputum (68 smoker). Denies: Pleuritic Chest Pain, Hemoptysis Cardiovascular: Reports: No Symptoms. Denies: Chest Pain, Edema GI/Abdominal: Reports: No Symptoms Genitourinary: Reports: Other (Urinary frequency nocturia 2-3.) Musculoskeletal: Reports: Other (All today injuring his left shoulder proximal humerus area and left hip and) Skin: Reports: No Symptoms ( groin area.) Neurological: Reports: No Symptoms Psychiatric: Reports: No Symptoms ED EXAM, GENERAL - Physical Exam Exam: See Below Exam Limited By: No Limitations General Appearance: Alert, WD/WN, Moderate Distress Eye Exam: Bilateral Eye: Normal Inspection Ears: Normal TMs Throat/Mouth: Normal Inspection, Normal Lips, Normal Oropharynx Head: Atraumatic, Normocephalic Neck: Normal Inspection, Supple, Full Range of Motion, Tender Lateral (Tender left lateral neck.). No: Lymphadenopathy (L), Lymphadenopathy (R) Respiratory/Chest: No Respiratory Distress, No Accessory Muscle Use, Chest Non- Tender, Decreased Breath Sounds, Wheezing (Decreased air entry lower 30% lung harrison bilaterally.), Other (No evidence of rib fractures.). No: Lungs Clear, Normal Breath Sounds ( Spine Aurelio wheezes both lung bases.) Cardiovascular: Normal Peripheral Pulses, Regular Rate, Rhythm, No Edema, No Murmur, No Rub Peripheral Pulses: 2+: Posterior Tibial (L), Posterior Tibial (R), Dorsalis Pedis (L) GI/Abdominal: Normal Bowel Sounds, Soft, Non-Tender, No Organomegaly, No Abnormal Bruit, No Mass, Pelvis Stable Back Exam: Full Range of Motion. No: CVA Tenderness (L), Paraspinal Tenderness Extremities: Normal Inspection, Normal Range of Motion, Non-Tender Course - Vital Signs Last Recorded V/S: Last Vital Signs Temp 36.7 C 05/12/19 13:34 Pulse 85 05/12/19 13:34 Resp 16 05/12/19 13:34 BP 138/86 05/12/19 13:34 Pulse Ox 95 05/12/19 13:34 - Orders/Labs/Meds Orders: Active Orders 24 hr Category Date Time Status Hip wo Cont Lt [CT] Stat Exams 05/12/19 14:25 Taken Humerus Lt [CR] Stat Exams 05/12/19 13:42 Taken Pelvis 1V or 2V [CR] Stat Exams 05/12/19 13:43 Taken Acetaminophen/HYDROcodone [[place] 325-5 MG] Med 05/12/19 15:47 Once 2 tab PO ONETIME ONE Dextrose 5%-Lactated Ringers 1,000 ml Med 05/12/19 14:30 Active IV ASDIRECTED Medication Orders Dextrose/Lactated Ringer's (Dextrose 5%-Lactated Ringers) 1,000 mls @ 999 mls/ hr IV ASDIRECTED [facility] Meds: Medications Generic Name Dose Route Start Last Admin Trade Name Freq PRN Reason Stop Dose Admin Dextrose/Lactated Ringer's 1,000 mls @ 999 mls/hr 05/12/19 14:30 Dextrose 5%-Lactated Ringers IV ASDIRECTED [facility] - Radiology Interpretation Free Text/Narrative:: 68-year-old male presents the ED for evaluation of primary left hip pain after slipping and falling from his vehicle about 2 hours ago. He still had a hold of the sternum well but when he placed his feet outside his vehicle he slipped underneath the vehicle landing hard on his left hip and left shoulder. This occurred about 2 hours before coming to the ED. He came to the son peg leg walking on his left hip. Complains of pain mostly in his left groin. Examination of his shoulder shows that he is full for flexion and loss of 10 of abduction abduction. Has a lot of pain in the proximal aspect of the humerus. X-rays of the humerus proximally and shoulder will be done. Pain primarily in his left groin, left hip. X-ray of both hips and pelvis will be done with one view. - Re-Assessments/Exams Free Text/Narrative Re-Assessment/Exam: 05/12/19 14:17 x-rays of the left shoulder show no fractures or dislocations. X- ray of the left hip show degenerative arthritic changes in the inferior portions of both hips without any obvious fractures. The pelvis up to appears to be intact. He said previous lumbar spine surgery with fusion of L4-L5 on the x-rays. 05/12/19 14:24 on examination of his left hip in a more thorough basis he does have some mild pain on full internal rotation with the leg straight. With the leg flexed at the hip he has pain on external and internal rotation. Does have some pain over the insertion site of the abductor louann muscle. He is quite a bit of pain in the superior aspect of his pelvic rest. I'm therefore going to order CT of his hip. He cannot weight-bear. 05/12/19 15:46 CT scan of the hip has been completed. No fractures are identified around the hip in the acetabulum or the iliac process. Extensive degenerative arthritic changes and osteopenia are appreciated throughout the true hip joint. She will therefore be discharged to home. He doesn't feel that he will need a walker in the home as he has a quad cane and crutches if needed. States his his home is already set up for occupational health assistance with numerous walking bars and supports his gait. He is going to become much more stiff and sore the next 24-48 hours. He states that hydrocodone tablets work well for him he doesn't do Percocet. Will therefore prescribe hydrocodone 5/325 mg tablets one or 2 every 4-6 hours for him for the next 3-4 days. Departure - Departure Time of Disposition: 15:47 Disposition: Home, Self-Care 01 Condition: Fair Clinical Impression: Contusion of left hip, initial encounter, Neck sprain, Contusion of hip Contusion of left shoulder Qualifiers: Encounter type: initial encounter Qualified Code(s): S40.012A - Contusion of left shoulder, initial encounter Sprain of cervical neck Qualifiers: Encounter type: initial encounter Qualified Code(s): S13.9XXA - Sprain of joints and ligaments of unspecified parts of neck, initial encounter - Discharge Information *PRESCRIPTION DRUG MONITORING PROGRAM REVIEWED*: Not Applicable *COPY OF PRESCRIPTION DRUG MONITORING REPORT IN PATIENT NATACHA: Not Applicable Prescriptions: Hydrocodone/Acetaminophen [Hydrocodon-Acetaminophen 5-325] 1 - 2 each PO Q4H # 20 tablet Referrals: Olive Rajan MD [Primary Care Provider] - Forms: ED Department Discharge Additional Instructions: Evaluation the emergent today in regards to injuries sustained from slipping and falling in the ice outside of your vehicle today. Until the pavement pretty hard on your right shoulder and her left hip. X-rays of the left shoulder and arm do not reveal any broken bones x-rays of the left hip show degenerative arthritis and marked osteopenia or thinning of the bones which made it very difficult to rule out a fracture. Amount of pain you're having CT of the left hip was carried out but it did not reveal any fractures in the hip joint either. Also suffered a cervical neck sprain and likely low back strain from her fall. Expect to be much more stiff and sore over the next 24-48 hours. Apply ice pack to the sore areas for one half hour out of every 4 hours for the next 2 days and after that may use heat to these areas. Use Motrin 600 mg every 6 hours to reduce pain and inflammation. May use [place] tablets 5/325 mg tablets one or 2 every 4-6 hours needed for pain relief. SPECT to be much better over the next 7-10 days. - My Orders Last 24 Hours: My Active Orders 05/12/19 13:42 Humerus Lt [CR] Stat 05/12/19 13:43 Pelvis 1V or 2V [CR] Stat 05/12/19 14:25 Hip wo Cont Lt [CT] Stat 05/12/19 14:30 Dextrose 5%-Lactated Ringers 1,000 ml IV ASDIRECTED 05/12/19 15:47 Acetaminophen/HYDROcodone [[place] 325-5 MG] 2 tab PO ONETIME ONE - Assessment/Plan Last 24 Hours: My Active Orders 05/12/19 13:42 Humerus Lt [CR] Stat 05/12/19 13:43 Pelvis 1V or 2V [CR] Stat 05/12/19 14:25 Hip wo Cont Lt [CT] Stat 05/12/19 14:30 Dextrose 5%-Lactated Ringers 1,000 ml IV ASDIRECTED 05/12/19 15:47 Acetaminophen/HYDROcodone [[place] 325-5 MG] 2 tab PO ONETIME ONE
[2019-05-12] MEDS ORDERED: Dextrose 5%-Lactated Ringers 1,000 ML IV SCH (14:30)
[2019-05-12] MEDS ORDERED: Acetaminophen/HYDROcodone 325-5 MG Tab PO ONE (15:47)
--- NOTE | 2019-05-15 09:12 | CR ---
Pelvis: AP view of the pelvis was obtained. Comparison: Prior pelvis exam of 01/24/17. Prior lumbar spine surgery is noted. Joint space is slightly narrowed with the left hip. Joint space with the right hip is preserved. Sacroiliac joints appear within normal limits. No fracture or other abnormality is seen. Impression: 1. Mild degenerative change within the left hip. 2. Prior lumbar spine surgery. 3. Nothing acute is seen on AP pelvis study. Diagnostic code #2 This report was dictated in [place] Standard Time
--- NOTE | 2019-05-15 09:12 | CR ---
Left humerus: Two views of the left humerus were obtained. Comparison: No previous humerus study. No fracture or other abnormality is seen. Impression: 1. No abnormality is appreciated on two-view left humerus exam. Diagnostic code #1 This report was dictated in [place] Standard Time
--- NOTE | 2019-05-15 13:07 | CT ---
CT left hip Technique multiple axial sections through the left hip were obtained. Reconstructed coronal and sagittal images were obtained. Comparison: Previous AP pelvis study of 01/24/17. Findings: Mild joint space narrowing is seen superiorly. Minimal endplate spurring is noted off the acetabulum and femoral head. Endplate spurring is noted anteriorly within the lower visualized lumbar spine. Evidence of prior lower lumbar spine surgery. No discrete fracture or other acute abnormality is seen. Impression: 1. Degenerative change as noted above. Prior lumbar spine surgery. 2. Nothing acute is appreciated on CT study of the left hip. Diagnostic code #2 MTDD
== END 2019-05-12 16:21 | disposition home or self-care (01) ==
LOC: JD.ED 13:18
DX: S13.9XXA Sprain of joints and ligaments of unspecified parts of neck, initial encounter (principal); S70.02XA Contusion of left hip, initial encounter; S40.012A Contusion of left shoulder, initial encounter; I10 Essential (primary) hypertension; J44.9 Chronic obstructive pulmonary disease, unspecified; E11.9 Type 2 diabetes mellitus without complications; F17.210 Nicotine dependence, cigarettes, uncomplicated; Z79.899 Other long term (current) drug therapy; Z79.82 Long term (current) use of aspirin; Z79.84 Long term (current) use of oral hypoglycemic drugs; W00.0XXA Fall on same level due to ice and snow, initial encounter; Y93.89 Activity, other specified; Y92.481 Parking lot as the place of occurrence of the external cause
CPT/HCPCS: 72170; 72170-26; 73060-26-LT; 73060-LT; 73700-LT; 99283; 99284-25

== ENCOUNTER 2020-03-18 12:41 | Emergency (ER) | payer OTHER, MEDICARE ==
[2020-03-18 13:15] VITALS: BP 176/92; PULSE 70
[2020-03-18] MEDS ORDERED: methylPREDNISolone Sodium Succinate 125 MG/2 ML SDV IVPUSH ONE (13:38)
[2020-03-18] MEDS ORDERED: Sodium Chloride 0.9% 10 ML Syringe FLUSH PRN (13:38)
--- NOTE | 2020-03-18 13:45 | EDM.PDOC ---
ED HPI GENERAL MEDICAL PROBLEM - General Chief Complaint: Respiratory Problem Stated Complaint: SOB Time Seen by Provider: 03/18/20 13:16 Source of Information: Reports: Patient, Provider (note from [facility] visit today), RN Notes Reviewed History Limitations: Reports: No Limitations - History of Present Illness INITIAL COMMENTS - FREE TEXT/NARRATIVE: Patient is a 69 year old male who presents to the ED for the evaluation of his ongoing shortness of breath and low oxygen sats. On report from the [facility] clinic he was found to have O2 sats in the mid 80s. On exam here, he is 96% on room air, with a good pleth. He is mildly dyspneic, but states this is known more than his normal. He is not having any fevers or chills, fatigue, sore throat, increased cough, or any body aches, he states that he usually gets a flare of his "allergies" once or twice a year, he states that this feels like what is happening now. He has a history of being exposed to agent orange while in the . [facility] and [facility] to the ER for further management. He did state that he is not really been able to lay down due to the increase of his shortness of breath, and he did take for albuterol nebulizers without much improvement at this time. - Related Data Allergies Allergy/AdvReac Type Severity Reaction Status Date / Time No Known Allergies Allergy Verified 03/18/20 13:15 Home Meds: Home Meds amLODIPine [Norvasc] 10 mg PO DAILY 10/04/16 [History] Acetaminophen [Tylenol Arthritis] 650 mg PO DAILY PRN 07/16/18 [History] Promethazine HCl/Codeine [Prometh-Codein 6.25-10 mg/5 ml] 5 ml PO Q4H PRN #60 ml 03/18/20 [Rx] guaiFENesin [Mucinex] 1 tab PO DAILY 03/18/20 [History] predniSONE 20 mg PO ASDIRECTED #15 tab 03/18/20 [Rx] Past Medical History HEENT History: Reports: Impaired Vision Cardiovascular History: Reports: Hypertension Respiratory History: Reports: COPD, Other (See Below) Other Respiratory History: agent orange exposure Musculoskeletal History: Reports: Osteoarthritis Other Musculoskeletal History: Back surgery Psychiatric History: Reports: Anxiety Endocrine/Metabolic History: Reports: Diabetes, Type II Other Endocrine/Metabolic History: pre-diabetic Oncologic (Cancer) History: Reports: Other (See Below) Dermatologic History: Reports: Melanoma - Past Surgical History Neurological Surgical History: Reports: C-Spine, Lumbar Spine Dermatological Surgical History: Reports: Skin Biopsy Social & Family History - Tobacco Use Smoking Status *Q: Current Every Day Smoker Years of Tobacco use: 50 Packs/Tins Daily: 0.5 - Caffeine Use Caffeine Use: Reports: Coffee, Soda, Tea - Recreational Drug Use Recreational Drug Use: No - Living Situation & Occupation Living situation: Reports: with Family, , with Spouse Occupation: Retired ED ROS GENERAL - Review of Systems Review Of Systems: Comprehensive ROS is negative, except as noted in HPI. ED EXAM, GENERAL - Physical Exam Exam: See Below Exam Limited By: No Limitations General Appearance: Alert, WD/WN, No Apparent Distress Respiratory/Chest: No Respiratory Distress, No Accessory Muscle Use, Chest Non- Tender, Decreased Breath Sounds (diffuse bilaterally), Wheezing (diffuse bilaterally). No: Rales, Rhonchi Cardiovascular: Normal Peripheral Pulses, Regular Rate, Rhythm, No Edema, No Murmur Peripheral Pulses: 2+: Radial (L), Radial (R) Extremities: Normal Inspection, Normal Capillary Refill Neurological: Alert, Oriented, Normal Cognition, No Motor/Sensory Deficits Psychiatric: Normal Affect, Normal Mood Skin Exam: Warm, Dry, Intact, Normal Color, No Rash EKG INTERPRETATION EKG Date: 03/18/20 Time: 15:25 Rhythm: NSR Rate (Beats/Min): 66 ST-T: Normal EKG Interpretation Comments: No obvious ischemia or acute ST changes noted, reviewed by myself and Dr. Palm there is some left ventricular hypertrophy, and old anterior infarct, but no acute changes. Course - Vital Signs Last Recorded V/S: Last Vital Signs Temp 97.5 F 03/18/20 13:08 Pulse 70 03/18/20 13:08 Resp 16 03/18/20 13:08 BP 176/92 H 03/18/20 13:08 Pulse Ox 96 03/18/20 13:08 - Orders/Labs/Meds Orders: Active Orders 24 hr Category Date Time Status EKG Documentation Completion [RC] STAT Care 03/18/20 13:37 Active Peripheral IV Care [RC] . DIRECTED Care 03/18/20 13:39 Active Chest 1V Frontal [CR] Stat Exams 03/18/20 13:38 Taken Sodium Chloride 0.9% [Saline Flush] Med 03/18/20 13:38 Active 10 ml FLUSH ASDIRECTED PRN Peripheral IV Insertion Adult [OM.PC] Routine Oth 03/18/20 13:38 Ordered Medication Orders Sodium Chloride (Saline Flush) 10 ml FLUSH ASDIRECTED PRN PRN Reason: Keep Vein Open Last Admin: 03/18/20 13:56 Dose: 10 ml Documented by: LUCINDA Labs: Laboratory Tests 03/18/20 03/18/20 03/18/20 Range/Units 13:55 13:55 13:55 WBC 5.61 (4.23-9.07) K/mm3 RBC 5.21 (4.63-6.08) M/mm3 Hgb 16.4 (13.7-17.5) gm/dl Hct 48.7 (40.1-51.0) % MCV 93.5 H (79.0-92.2) fl MCH 31.5 (25.7-32.2) pg MCHC 33.7 (32.2-35.5) g/dl RDW Std Deviation 44.1 H (35.1-43.9) fL Plt Count 212 (163-337) K/mm3 MPV 10.0 (9.4-12.3) fl Neutrophils % (Manual) 61 H (40-60) % Band Neutrophils % 0 (0-10) % Lymphocytes % (Manual) 23 (20-40) % Atypical Lymphs % 0 % Monocytes % (Manual) 9 (2-10) % Eosinophils % (Manual) 6 (0.8-7.0) % Basophils % (Manual) 1 (0.2-1.2) Platelet Estimate Adequate RBC Morph Comment Normal Sodium 141 (136-145) mEq/L Potassium 3.7 (3.5-5.1) mEq/L Chloride 104 (98-107) mEq/L Carbon Dioxide 29 (21-32) mEq/L Anion Gap 11.7 (5-15) BUN 9 (7-18) mg/dL Creatinine 0.9 (0.7-1.3) mg/dL Est Cr Clr Drug Dosing 77.73 mL/min Estimated GFR (MDRD) > 60 (>60) mL/min BUN/Creatinine Ratio 10.0 L (14-18) Glucose 100 (83-115) mg/dL Lactic Acid (0.4-2.0) mmol/L Calcium 8.9 (8.5-10.1) mg/dL Magnesium 1.7 L (1.8-2.4) mg/dl Ferritin (26-388) ng/ml Total Bilirubin 0.5 (0.2-1.0) mg/dL AST 13 L (15-37) U/L ALT 15 L (16-63) U/L Alkaline Phosphatase 109 (46-116) U/L Lactate Dehydrogenase 153 (85-227) U/L Troponin I < 0.017 (0.00-0.056) ng/mL C-Reactive Protein 1.2 H* (<1.0) mg/dL NT-Pro-B Natriuret Pep (0-125) pg/mL Total Protein 6.8 (6.4-8.2) g/dl Albumin 3.5 (3.4-5.0) g/dl Globulin 3.3 gm/dL Albumin/Globulin Ratio 1.1 (1-2) 03/18/20 03/18/20 03/18/20 Range/Units 13:55 13:55 14:10 WBC (4.23-9.07) K/mm3 RBC (4.63-6.08) M/mm3 Hgb (13.7-17.5) gm/dl Hct (40.1-51.0) % MCV (79.0-92.2) fl MCH (25.7-32.2) pg MCHC (32.2-35.5) g/dl RDW Std Deviation (35.1-43.9) fL Plt Count (163-337) K/mm3 MPV (9.4-12.3) fl Neutrophils % (Manual) (40-60) % Band Neutrophils % (0-10) % Lymphocytes % (Manual) (20-40) % Atypical Lymphs % % Monocytes % (Manual) (2-10) % Eosinophils % (Manual) (0.8-7.0) % Basophils % (Manual) (0.2-1.2) Platelet Estimate RBC Morph Comment Sodium (136-145) mEq/L Potassium (3.5-5.1) mEq/L Chloride (98-107) mEq/L Carbon Dioxide (21-32) mEq/L Anion Gap (5-15) BUN (7-18) mg/dL Creatinine (0.7-1.3) mg/dL Est Cr Clr Drug Dosing mL/min Estimated GFR (MDRD) (>60) mL/min BUN/Creatinine Ratio (14-18) Glucose (83-115) mg/dL Lactic Acid 0.8 (0.4-2.0) mmol/L Calcium (8.5-10.1) mg/dL Magnesium (1.8-2.4) mg/dl Ferritin 202 (26-388) ng/ml Total Bilirubin (0.2-1.0) mg/dL AST (15-37) U/L ALT (16-63) U/L Alkaline Phosphatase (46-116) U/L Lactate Dehydrogenase (85-227) U/L Troponin I (0.00-0.056) ng/mL C-Reactive Protein (<1.0) mg/dL NT-Pro-B Natriuret Pep 882 H (0-125) pg/mL Total Protein (6.4-8.2) g/dl Albumin (3.4-5.0) g/dl Globulin gm/dL Albumin/Globulin Ratio (1-2) Meds: Medications Generic Name Dose Route Start Last Admin Trade Name Freq PRN Reason Stop Dose Admin Sodium Chloride 10 ml 03/18/20 13:38 03/18/20 13:56 Saline Flush FLUSH 10 ml ASDIRECTED PRN Administration Keep Vein Open Discontinued Medications Generic Name Dose Route Start Last Admin Trade Name Freq PRN Reason Stop Dose Admin Methylprednisolone Sodium Succinate 125 mg 03/18/20 13:38 03/18/20 13:56 Solu-Medrol IVPUSH 03/18/20 13:39 125 mg ONETIME ONE Administration - Re-Assessments/Exams Free Text/Narrative Re-Assessment/Exam: 03/18/20 13:45 Patient presents to the ED for evaluation of his ongoing respiratory illness. I do believe this does sound like an exacerbation of his existing lung disease, his COVID test screening is pending however. He will get basic labs and a chest x-ray, along with IV Solu-Medrol for further wheezing management. We will try to hold off on nebulizers at this time until he can go home possibly and take more at home. We will likely send him home with a steroid burst, he states usually gets a round of antibiotics, and does well. 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 Upon re-exam, he is not as wheezy, and is feeling better. I will send him home with a course of prednisone, and some cough medicine and [facility] if he should develop any fever or worsening symptoms for possible antibiotics at this time, we will call and notify him if any lab values come back crazy. Patient is okay with this plan at this time. 03/18/20 15:08 Troponin is unremarkable, all other labs are fairly unremarkable, BNP is mildly elevated at 888, and the CRP is mildly elevated at 1.9. Departure - Departure Time of Disposition: 14:47 Disposition: Home, Self-Care 01 Condition: Good Clinical Impression: Bronchitis - Discharge Information *PRESCRIPTION DRUG MONITORING PROGRAM REVIEWED*: Yes *COPY OF PRESCRIPTION DRUG MONITORING REPORT IN PATIENT NATACHA: No Prescriptions: predniSONE 20 mg PO ASDIRECTED #15 tab Promethazine HCl/Codeine [Prometh-Codein 6.25-10 mg/5 ml] 5 ml PO Q4H PRN #60 ml PRN Reason: Cough Instructions: Acute Bronchitis, Adult, [id number] Referrals: Rachael Palm, MAR[employer] SERVICES TECHNICIAN [Primary Care Provider] - Forms: ED Department Discharge Additional Instructions: You were seen in the ER today for ongoing and/or worsening respiratory symptoms. Your chest x-ray showed no signs of pneumonia at this time. Your oxygen levels were great at 96% on room air. Laboratory evaluation that has preliminary resulted demonstrates no increased white count to suspect a pneumonia as well. Other labs are still pending at this time, you will be called and made notified if anything should need further evaluation. You were tested for COVID-19 through the [facility] system. We ask that you self- quarantine and limit your exposure to others until you receive your results from the state. You have been given a work note to reflect this. Swabs are sent from this facility on a daily basis, at 2:30 PM, you should expect up to 3-5 business days for positive or negative results. However you may receive results earlier than this. We are doing our best to call as soon as we get results from the [place] dept. of Health. Please try to increase your oral fluid intake, and eat multiple small meals throughout the day, to keep yourself healthy. You need to keep yourself nourished in order to fight off this disease. You can try a liquid diet like gatorade/powerade as well to get your electrolytes. You may take 500 mg Tylenol every hours 6 hours for pain/fever relief. Do not exceed 4000 mg Tylenol in a 24-hour time span. However, running a fever is your body's natural response to illness, and it allows the body to develop antibodies to disease, we are recommending trying to limit the use of Tylenol as much as possible to allow your body's natural immune response. Recommend you obtain a pulse oximeter and monitor your oxygen levels at home, you should place the monitor on your finger, and sit in a calm, quiet position f or a few minutes and then record the number that is on the screen. If this consistently below 90% on room air without movement, this would be cause for concern to come back to the hospital for further management of your COVID-19 disease. You were given a course of prednisone for management of your illness, along with some cough medicine, please take as directed for further symptomatic management. Sepsis Event Note (ED) - Evaluation Sepsis Screening Result: No Definite Risk - Focused Exam Vital Signs: Vital Signs Temp Pulse Resp BP Pulse Ox 03/18/20 13:08 97.5 F 70 16 176/92 H 96 - My Orders Last 24 Hours: My Active Orders 03/18/20 13:37 EKG Documentation Completion [RC] STAT 03/18/20 13:38 Chest 1V Frontal [CR] Stat Sodium Chloride 0.9% [Saline Flush] 10 ml FLUSH ASDIRECTED PRN Peripheral IV Insertion Adult [OM.PC] Routine 03/18/20 13:39 Peripheral IV Care [RC] . DIRECTED - Assessment/Plan Last 24 Hours: My Active Orders 03/18/20 13:37 EKG Documentation Completion [RC] STAT 03/18/20 13:38 Chest 1V Frontal [CR] Stat Sodium Chloride 0.9% [Saline Flush] 10 ml FLUSH ASDIRECTED PRN Peripheral IV Insertion Adult [OM.PC] Routine 03/18/20 13:39 Peripheral IV Care [RC] . DIRECTED
--- NOTE | 2020-04-19 12:57 | CR ---
PROCEDURE INFORMATION: Exam: XR Chest, 1 View Exam date and time: 03/18/2020 1:48 PM Age: 69 years old Clinical indication: Patient HX: Covid, copd TECHNIQUE: Imaging protocol: XR of the chest Views: 1 view. COMPARISON: CR Chest 1V Frontal 10/03/2018 10:14 AM FINDINGS: Lungs: When compared to the previous emanation, there appears to be slight decrease in peripheral airspace opacity suggesting some improvement in multilobar pneumonia. Chronic appearing interstitial change of COPD/emphysema is present. There is no pulmonary edema. Pleural space: Unremarkable. No pleural effusion. No pneumothorax. Heart/Mediastinum: Heart size is moderately prominent. There is deviation of the trachea toward the left. This is new when compared to the previous radiograph. Question possible enlarging lymph nodes in the upper mediastinum. Attention of this on follow-up suggested. Bones/joints: Unremarkable. IMPRESSION: 1. Slight improvement in aeration suggesting some partial resolution of multilobar pneumonia. 2. Trachea is deviated toward the left. This represents a significant change from the previous examination. Question possible enlarging upper mediastinal lymph nodes causing this. Attention to this on follow-up suggested. Thank you for allowing us to participate in the care of your patient. Dictated and Authenticated by: Darvin Hodgson MD 04/19/2020 1:07 PM Central Time ([place] [employer]) [facility]
== END 2020-03-18 15:35 | disposition home or self-care (01) ==
LOC: JD.ED 12:41
DX: J40 Bronchitis, not specified as acute or chronic (principal); I10 Essential (primary) hypertension; E11.9 Type 2 diabetes mellitus without complications; F17.210 Nicotine dependence, cigarettes, uncomplicated; R79.1 Abnormal coagulation profile; R79.82 Elevated C-reactive protein (CRP); Z79.899 Other long term (current) drug therapy
CPT/HCPCS: 36415; 71045; 80053; 82728; 83605; 83615; 83735; 83880; 84484; 85007; 85027; 86140; 93005; 96374; 99285; J2930; 93010; 99283

== ENCOUNTER 2020-03-26 08:40 | Emergency (ER) | payer OTHER, MEDICARE ==
--- NOTE | 2020-03-26 09:09 | EDM.PDOC ---
ED HPI GENERAL MEDICAL PROBLEM - General Chief Complaint: Respiratory Problem Stated Complaint: SOB Time Seen by Provider: 03/26/20 09:08 - History of Present Illness INITIAL COMMENTS - FREE TEXT/NARRATIVE: 69-year-old male returns to the emergency room with increasing cough and breathing difficulties. Patient has well-established COPD with frequent exacerbations. He was seen here on the fifth started on a prednisone taper. He was down to 20 mg a day yesterday and again today. Patient was recently tested for COVID Wednesday the results were negative. Patient is established with the [place] system and gets most of his health care through them. Patient denies any chest pain at this point just a frequent cough minimally productive. Has been using his albuterol ipratropium nebulizers 4 times daily. - Related Data Allergies Allergy/AdvReac Type Severity Reaction Status Date / Time No Known Allergies Allergy Verified 03/26/20 08:58 Home Meds: Home Meds amLODIPine [Norvasc] 10 mg PO DAILY 10/04/16 [History] Acetaminophen [Tylenol Arthritis] 650 mg PO DAILY PRN 07/16/18 [History] guaiFENesin [Mucinex] 1 tab PO DAILY 03/18/20 [History] predniSONE 20 mg PO ASDIRECTED #15 tab 03/18/20 [Rx] levoFLOXacin [Levaquin] 500 mg PO DAILY #7 tab 03/26/20 [Rx] metFORMIN HCl [Metformin HCl] 1,000 mg PO DAILY 03/26/20 [History] predniSONE [Prednisone] 20 mg PO ASDIRECTED #26 tablet 03/26/20 [Rx] Past Medical History HEENT History: Reports: Impaired Vision Cardiovascular History: Reports: Hypertension Respiratory History: Reports: COPD, Other (See Below) Other Respiratory History: agent orange exposure Musculoskeletal History: Reports: Osteoarthritis Other Musculoskeletal History: Back surgery Psychiatric History: Reports: Anxiety Endocrine/Metabolic History: Reports: Diabetes, Type II Other Endocrine/Metabolic History: pre-diabetic Oncologic (Cancer) History: Reports: Other (See Below) Other Oncologic History: Skin CA on nose. Dermatologic History: Reports: Melanoma - Past Surgical History HEENT Surgical History: Reports: Eye Surgery Neurological Surgical History: Reports: C-Spine, Lumbar Spine Dermatological Surgical History: Reports: Skin Biopsy Social & Family History - Tobacco Use Tobacco Use Status *Q: Current Some Day Tobacco User Years of Tobacco use: 50 Packs/Tins Daily: 0.1 - Caffeine Use Caffeine Use: Reports: Coffee - Recreational Drug Use Recreational Drug Use: No - Living Situation & Occupation Living situation: Reports: with Family, , with Spouse Occupation: Retired ED ROS GENERAL - Review of Systems Review Of Systems: See Below Constitutional: Reports: No Symptoms HEENT: Reports: No Symptoms Respiratory: Reports: Shortness of Breath, Cough, Sputum (Small amounts) Cardiovascular: Reports: No Symptoms. Denies: Chest Pain, Palpitations GI/Abdominal: Reports: No Symptoms : Reports: No Symptoms Musculoskeletal: Reports: No Symptoms Skin: Reports: No Symptoms ED EXAM, GENERAL - Physical Exam Exam: See Below Exam Limited By: No Limitations General Appearance: Alert, No Apparent Distress Eye Exam: Bilateral Eye: Normal Inspection Ears: Normal External Exam, Normal Canal, Hearing Grossly Normal, Normal TMs Nose: Normal Inspection, Normal Mucosa, No Blood Throat/Mouth: Normal Inspection, Normal Lips, Normal Gums, Normal Oropharynx, Normal Voice, No Airway Compromise, Other (Upper and lower dentures in place) Head: Atraumatic, Normocephalic Neck: Normal Inspection, Supple, Non-Tender, Full Range of Motion. No: Lymphadenopathy (L), Lymphadenopathy (R) Respiratory/Chest: No Respiratory Distress, Lungs Clear, Normal Breath Sounds Cardiovascular: Normal Peripheral Pulses, Regular Rate, Rhythm, No Edema GI/Abdominal: Normal Bowel Sounds, Soft, Non-Tender Back Exam: Normal Inspection. No: CVA Tenderness (L), CVA Tenderness (R) Extremities: Normal Inspection, No Pedal Edema Neurological: Alert, Oriented, Normal Cognition #1 Interpretation EKG Date: 03/26/20 Rhythm: NSR Rate (Beats/Min): 60 Siren: Normal P-Wave: Present QRS: Normal ST-T: Other (Normal ST-T wave for the most part he has inverted T waves in aVL without chest pain. Possible Q waves anteriorly) QT: Normal Comparison: No Change EKG Interpretation Comments: Abnormal EKG Course - Vital Signs Last Recorded V/S: Last Vital Signs Temp 35.8 C L 03/26/20 08:55 Pulse 88 03/26/20 11:15 Resp 18 03/26/20 10:45 BP 151/79 H 03/26/20 11:15 Pulse Ox 91 L 03/26/20 11:15 - Orders/Labs/Meds Orders: Active Orders 24 hr Category Date Time Status RT Aerosol Therapy [RC] ASDIRECTED Care 03/26/20 09:31 Active Chest 1V Frontal [CR] Stat Exams 03/26/20 09:29 Taken Labs: Laboratory Tests 03/26/20 03/26/20 Range/Units 09:10 09:10 WBC 9.46 H (4.23-9.07) K/mm3 RBC 5.22 (4.63-6.08) M/mm3 Hgb 16.3 (13.7-17.5) gm/dl Hct 49.2 (40.1-51.0) % MCV 94.3 H (79.0-92.2) fl MCH 31.2 (25.7-32.2) pg MCHC 33.1 (32.2-35.5) g/dl RDW Std Deviation 43.8 (35.1-43.9) fL Plt Count 230 (163-337) K/mm3 MPV 10.5 (9.4-12.3) fl Neut % (Auto) 66.5 (34.0-67.9) % Lymph % (Auto) 21.5 L (21.8-53.1) % Hubbard % (Auto) 10.3 (5.3-12.2) % Eos % (Auto) 1.0 (0.8-7.0) Baso % (Auto) 0.2 (0.1-1.2) % Neut # (Auto) 6.30 H (1.78-5.38) K/mm3 Lymph # (Auto) 2.03 (1.32-3.57) K/mm3 Hubbard # (Auto) 0.97 H (0.30-0.82) K/mm3 Eos # (Auto) 0.09 (0.04-0.54) K/mm3 Baso # (Auto) 0.02 (0.01-0.08) K/mm3 Sodium 139 (136-145) mEq/L Potassium 4.3 (3.5-5.1) mEq/L Chloride 101 (98-107) mEq/L Carbon Dioxide 33 H (21-32) mEq/L Anion Gap 9.3 (5-15) BUN 21 H (7-18) mg/dL Creatinine 0.9 (0.7-1.3) mg/dL Est Cr Clr Drug Dosing 77.73 mL/min Estimated GFR (MDRD) > 60 (>60) mL/min BUN/Creatinine Ratio 23.3 H (14-18) Glucose 188 H (83-115) mg/dL Calcium 9.0 (8.5-10.1) mg/dL Total Bilirubin 0.4 (0.2-1.0) mg/dL AST 5 L (15-37) U/L ALT 22 (16-63) U/L Alkaline Phosphatase 104 (46-116) U/L Total Protein 6.4 (6.4-8.2) g/dl Albumin 3.3 L (3.4-5.0) g/dl Globulin 3.1 gm/dL Albumin/Globulin Ratio 1.1 (1-2) Meds: Medications Discontinued Medications Generic Name Dose Route Start Last Admin Trade Name Freq PRN Reason Stop Dose Admin Albuterol/Ipratropium 3 ml 03/26/20 09:29 03/26/20 09:47 Duoneb 3.0-0.5 Mg/3 Ml NEB 03/26/20 09:30 3 ml ONETIME ONE Administration Prednisone 80 mg 03/26/20 09:29 03/26/20 09:58 Prednisone PO 03/26/20 09:30 80 mg ONETIME ONE Administration - Re-Assessments/Exams Free Text/Narrative Re-Assessment/Exam: 03/26/20 11:57 Patient is doing better he received a DuoNeb. He also received 80 mg p.o. prednisone. Labs are reassuring the patient will be started on Levaquin and a more aggressive prednisone taper as he failed the when he was on. Departure - Departure Time of Disposition: 11:58 Disposition: Home, Self-Care 01 Clinical Impression: COPD with exacerbation, Bronchitis - Discharge Information Referrals: Olive Rajan MD [Primary Care Provider] - Forms: ED Department Discharge Additional Instructions: Return to the emergency room with any questions problems or worsening symptoms. You are given a new prescription for prednisone starting tomorrow morning to take 3 pills every morning for 4 days then you take 2 pills every morning for 4 days then 1 pill every morning for 4 days then 1/2 pill every morning for 2 days. You should follow-up with your regular provider early this next week and discuss how things are going also discuss if you should stay on prednisone 10 mg a day and discuss slowly backing this dose down. You have been given an antibiotic, Levaquin, take 1 daily starting today until they are all gone. Use your home nebulizer 4 times a day if needed increase it to 6 times a day. Sepsis Event Note (ED) - Evaluation Sepsis Screening Result: No Definite Risk - Focused Exam Vital Signs: Vital Signs Temp Pulse Resp BP Pulse Ox Pulse Ox 03/26/20 11:15 88 151/79 H 91 L 03/26/20 10:45 65 18 161/80 H 91 L 03/26/20 09:47 94 L 03/26/20 08:55 35.8 C L 62 20 186/91 H 95 - My Orders Last 24 Hours: My Active Orders 03/26/20 09:29 Chest 1V Frontal [CR] Stat 03/26/20 09:31 RT Aerosol Therapy [RC] ASDIRECTED - Assessment/Plan Last 24 Hours: My Active Orders 03/26/20 09:29 Chest 1V Frontal [CR] Stat 03/26/20 09:31 RT Aerosol Therapy [RC] ASDIRECTED
[2020-03-26] MEDS ORDERED: Albuterol/Ipratropium 3.0-0.5 MG/3 ML Neb Soln NEB ONE (09:29)
[2020-03-26] MEDS ORDERED: predniSONE 20 MG Tab PO ONE (09:29)
[2020-03-26 11:28] VITALS: BP 151/79; PULSE 88
--- NOTE | 2020-04-22 12:35 | CR ---
Reason for Exam: Prelim report, submitted 03/26/2020 11:00:[address] Janie Nino: Exam submitted for final signature without edit on 04/22/2020 PROCEDURE INFORMATION: Exam: XR Chest, 1 View Exam date and time: 03/26/2020 9:18 AM Age: 69 years old Clinical indication: Cough TECHNIQUE: Imaging protocol: XR of the chest Views: 1 view. COMPARISON: CR Chest 1V Frontal 03/18/2020 1:48 PM FINDINGS: Lungs: Areas of slight interstitial prominence peripherally, likely due to fibrosis. No consolidation. Pleural space: Unremarkable. No pleural effusion. No pneumothorax. Heart/Mediastinum: Unremarkable. No cardiomegaly. Vasculature: Aortic calcifications. Plate screw fixation lower cervical spine. Trachea is deviated to the which could be due to an enlarged thyroid. Bones/joints: The bones are demineralized. IMPRESSION: 1. No acute findings. 2. Stable slight interstitial prominence likely due to fibrosis. 3. Deviated trachea could be due to enlarged thyroid. Thank you for allowing us to participate in the care of your patient. Dictated and Authenticated by: Janie Nino MD 04/22/2020 9:31 AM Central Time ([place] [employer] [place]) [facility]
== END 2020-03-26 12:33 | disposition home or self-care (01) ==
LOC: JD.ED 08:40
DX: J44.1 Chronic obstructive pulmonary disease with (acute) exacerbation (principal); I10 Essential (primary) hypertension; E11.9 Type 2 diabetes mellitus without complications; F17.210 Nicotine dependence, cigarettes, uncomplicated; Z79.899 Other long term (current) drug therapy; Z79.84 Long term (current) use of oral hypoglycemic drugs
CPT/HCPCS: 36415; 71045; 80053; 85025; 94640; 99285; J7512; 93010; 99283; J7620-GY

== ENCOUNTER 2020-10-26 07:32 | Emergency (ER) | payer OTHER, MEDICARE ==
[2020-10-26 07:42] VITALS: BP 150/90; PULSE 85
--- NOTE | 2020-10-26 08:16 | EDM.PDOC ---
ED HPI GENERAL MEDICAL PROBLEM - General Chief Complaint: Laceration Stated Complaint: HAND BLEEDING Time Seen by Provider: 10/26/20 07:49 Source of Information: Reports: Patient History Limitations: Reports: No Limitations - History of Present Illness INITIAL COMMENTS - FREE TEXT/NARRATIVE: The patient presents with left hand laceration. He says he found chicken mites or scabies in his cat and dog food. He now has been getting bites to his head, hands and arms. He has been getting some ulcerations with the bites. He has a couple on his let hand. He hit it on a corner of a table and one of them began to bleed on his left hand. He is washing with medicine for the mites. Onset: Sudden Duration: Minutes: Location: Reports: Upper Extremity, Left (hand) Severity: Mild Improves with: Reports: None Worsens with: Reports: None Associated Symptoms: Reports: No Other Symptoms - Related Data Allergies Allergy/AdvReac Type Severity Reaction Status Date / Time No Known Allergies Allergy Verified 10/26/20 07:42 Home Meds: Home Meds amLODIPine [Norvasc] 10 mg PO DAILY 10/04/16 [History] Acetaminophen [Tylenol Arthritis] 650 mg PO DAILY PRN 07/16/18 [History] guaiFENesin [Mucinex] 1 tab PO DAILY 03/18/20 [History] predniSONE 20 mg PO ASDIRECTED #15 tab 03/18/20 [Rx] levoFLOXacin [Levaquin] 500 mg PO DAILY #7 tab 03/26/20 [Rx] metFORMIN HCl [Metformin HCl] 1,000 mg PO DAILY 03/26/20 [History] predniSONE [Prednisone] 20 mg PO ASDIRECTED #26 tablet 03/26/20 [Rx] Past Medical History HEENT History: Reports: Impaired Vision Cardiovascular History: Reports: Hypertension Respiratory History: Reports: COPD, Other (See Below) Other Respiratory History: agent orange exposure Musculoskeletal History: Reports: Osteoarthritis Other Musculoskeletal History: Back surgery Psychiatric History: Reports: Anxiety Endocrine/Metabolic History: Reports: Diabetes, Type II Other Endocrine/Metabolic History: pre-diabetic Oncologic (Cancer) History: Reports: Other (See Below) Other Oncologic History: Skin CA on nose. Dermatologic History: Reports: Melanoma - Past Surgical History HEENT Surgical History: Reports: Eye Surgery Neurological Surgical History: Reports: C-Spine, Lumbar Spine Dermatological Surgical History: Reports: Skin Biopsy Social & Family History - Tobacco Use Tobacco Use Status *Q: Current Every Day Tobacco User Years of Tobacco use: 50 Packs/Tins Daily: 1.5 - Caffeine Use Caffeine Use: Reports: Coffee - Recreational Drug Use Recreational Drug Use: No - Living Situation & Occupation Living situation: Reports: with Family, , with Spouse Occupation: Retired ED ROS GENERAL - Review of Systems Review Of Systems: See Below Constitutional: Reports: No Symptoms HEENT: Reports: No Symptoms Respiratory: Reports: No Symptoms Cardiovascular: Reports: No Symptoms Endocrine: Reports: No Symptoms GI/Abdominal: Reports: No Symptoms : Reports: No Symptoms Musculoskeletal: Reports: Other (left hand laceration) ED EXAM, SKIN/RASH Exam: See Below Exam Limited By: No Limitations General Appearance: Alert, No Apparent Distress Ears: Normal External Exam Nose: Normal Inspection Throat/Mouth: Normal Inspection Head: Atraumatic, Normocephalic, Other (small abrasions to the hair line) Neck: Normal Inspection Respiratory/Chest: No Respiratory Distress, Lungs Clear, Normal Breath Sounds Cardiovascular: Regular Rate, Rhythm, No Edema, No Murmur GI/Abdominal: Soft, Non-Tender, No Organomegaly, No Mass Extremities: Other (Both hands have multiple small abrasions and on both arms. He also has a 1cm curved superficial laceration to the dorsum of the left hand. There is no active bleeding at this time.) ED SKIN PROCEDURES - Laceration/Wound Repair Left Hand Appearance: Superficial, Irregular, Clean Distal NVT: Neuro & Vascular Intact, No Tendon Injury Skin Prep: Saline Exploration/Debridement/Repair: Wound Explored, In a Bloodless Field, Explored to Base Closed with: Wound Adhesive Lac/Wound length In cm: 1 Tetanus Status Addressed: Yes Complications: No Course - Vital Signs Last Recorded V/S: Last Vital Signs Temp 97.2 F 10/26/20 07:37 Pulse 85 10/26/20 07:37 Resp 16 10/26/20 07:37 BP 150/90 H 10/26/20 07:37 Pulse Ox 90 L 10/26/20 07:37 - Re-Assessments/Exams Free Text/Narrative Re-Assessment/Exam: 10/26/20 08:16 I used some adhesive to close the wound. He is getting treated for the scabies. I will discharge him home. Departure - Departure Time of Disposition: 08:20 Disposition: Home, Self-Care 01 Condition: Good Clinical Impression: Scabies Laceration of left hand Qualifiers: Encounter type: initial encounter Foreign body presence: without foreign body Qualified Code(s): S61.412A - Laceration without foreign body of left hand, initial encounter - Discharge Information *PRESCRIPTION DRUG MONITORING PROGRAM REVIEWED*: Not Applicable *COPY OF PRESCRIPTION DRUG MONITORING REPORT IN PATIENT NATACHA: Not Applicable Referrals: Rachael Palm, [employer] [Primary Care Provider] - 1 Week Additional Instructions: Continue to use the shampoo as directed for the scabies. Let the adhesive set up for about 2 hours and then you can wash your hands like normal. Do not put any antibiotic ointment on the adhesive. That will break it down. It will wear off over the next week to 10 days. Look for any signs of infection such as redness, swelling, pain, or discharge. If you see any of these signs, please return or see your doctor. You may need oral antibiotics. Sepsis Event Note (ED) - Evaluation Sepsis Screening Result: No Definite Risk - Focused Exam Vital Signs: Vital Signs Temp Pulse Resp BP Pulse Ox 10/26/20 07:37 97.2 F 85 16 150/90 H 90 L
== END 2020-10-26 08:30 | disposition home or self-care (01) ==
LOC: JD.ED 07:32
DX: S61.412A Laceration without foreign body of left hand, initial encounter (principal); S40.812A Abrasion of left upper arm, initial encounter; S40.811A Abrasion of right upper arm, initial encounter; B86 Scabies; I10 Essential (primary) hypertension; E11.9 Type 2 diabetes mellitus without complications; Z72.0 Tobacco use; W26.8XXA Contact with other sharp object(s), not elsewhere classified, initial encounter
CPT/HCPCS: 12001; 99282-25; 99283

== ENCOUNTER 2020-11-01 14:39 | Emergency (ER) | payer MEDICARE, OTHER ==
[2020-11-01] MEDS ORDERED: Sodium Chloride 0.9% 1,000 ML IV ONE (15:30)
--- NOTE | 2020-11-01 15:39 | EDM.PDOC ---
ED HPI GENERAL MEDICAL PROBLEM - General Chief Complaint: General Stated Complaint: DISORIENTED/NOT EATING OR DRINKING Time Seen by Provider: 11/01/20 14:47 Source of Information: Reports: Patient, Family History Limitations: Reports: No Limitations, Altered Mental Status - History of Present Illness INITIAL COMMENTS - FREE TEXT/NARRATIVE: Had a fall yesterday, no specific complaints such as fevers chills or sweats no coughing cold symptoms or chest pain. No double vision blurry vision or blackout spots patient has been using Suboxone using a Shreya of amount daily. Patient presents for altered mental status. Over the last several days has not been thinking is clearly not eating or drinking well, patient is not hungry, seems to be sleeping well does smoke a large amount of cigarettes but otherwise no chest pain shortness of breath or breathing difficulty. Known nausea vomiting or diarrhea no burning pain or blood in the urine no increasing swelling. Lightheaded but no fainting spell. - Related Data Allergies Allergy/AdvReac Type Severity Reaction Status Date / Time No Known Allergies Allergy Verified 10/26/20 07:42 Home Meds: Home Meds amLODIPine [Norvasc] 10 mg PO DAILY 10/04/16 [History] Acetaminophen [Tylenol Arthritis] 650 mg PO DAILY PRN 07/16/18 [History] guaiFENesin [Mucinex] 1 tab PO DAILY 03/18/20 [History] metFORMIN HCl [Metformin HCl] 1,000 mg PO DAILY 03/26/20 [History] Buprenorphine HCl/Naloxone HCl [Suboxone 4 mg-1 mg Sl Film] 1 applic SL DAILY 11/01/20 [History] DULoxetine [Cymbalta] 20 mg PO BEDTIME 11/01/20 [History] Past Medical History HEENT History: Reports: Impaired Vision Cardiovascular History: Reports: Hypertension Respiratory History: Reports: COPD, Other (See Below) Other Respiratory History: agent orange exposure Musculoskeletal History: Reports: Osteoarthritis Other Musculoskeletal History: Back surgery Psychiatric History: Reports: Anxiety Endocrine/Metabolic History: Reports: Diabetes, Type II Other Endocrine/Metabolic History: pre-diabetic Oncologic (Cancer) History: Reports: Other (See Below) Other Oncologic History: Skin CA on nose. Dermatologic History: Reports: Melanoma Other Dermatologic History: nose-removed - Past Surgical History HEENT Surgical History: Reports: Eye Surgery Neurological Surgical History: Reports: C-Spine, Lumbar Spine Other Neurological Surgeries/Procedures: C5-C6 fusion, L4-L5 fusion Musculoskeletal Surgical History: Reports: Other (See Below) Other Musculoskeletal Surgeries/Procedures:: lumbar and cervical surgeries Dermatological Surgical History: Reports: Skin Biopsy Social & Family History - Tobacco Use Tobacco Use Status *Q: Current Every Day Tobacco User Years of Tobacco use: 63 Packs/Tins Daily: 1 - Caffeine Use Caffeine Use: Reports: Coffee, Soda - Recreational Drug Use Recreational Drug Use: No - Living Situation & Occupation Living situation: Reports: with Family, , with Spouse Occupation: Retired ED ROS GENERAL - Review of Systems Review Of Systems: See Below Constitutional: Reports: Weakness, Fatigue, Decreased Appetite. Denies: Fever, Chills HEENT: Denies: Eye Pain, Rhinitis, Throat Pain Respiratory: Denies: Shortness of Breath, Pleuritic Chest Pain, Cough Cardiovascular: Denies: Chest Pain, Dyspnea on Exertion, Lightheadedness, PND, Syncope Endocrine: Reports: Fatigue GI/Abdominal: Reports: Decreased Appetite. Denies: Abdominal Pain, Constipation, Diarrhea, Nausea, Vomiting : Denies: Dysuria, Frequency, Urgency Musculoskeletal: Denies: Muscle Pain Skin: Reports: Dryness Neurological: Reports: Confusion, Weakness. Denies: Paresthesia, Syncope, Trouble Speaking, Gait Disturbance Psychiatric: Denies: Anxiety, Homicidal Ideation ED EXAM, GENERAL - Physical Exam Exam: See Below Exam Limited By: No Limitations General Appearance: Alert, WD/WN, No Apparent Distress Eye Exam: Bilateral Eye: EOMI, PERRL Throat/Mouth: Other (dry mucous membranes) Head: Atraumatic Neck: Supple Respiratory/Chest: Lungs Clear, Normal Breath Sounds Cardiovascular: Normal Peripheral Pulses, Regular Rate, Rhythm, No Edema, No JVD GI/Abdominal: Normal Bowel Sounds, Soft, Non-Tender, No Organomegaly Extremities: Normal Inspection Neurological: Alert, Oriented, CN II-XII Intact Skin Exam: Warm, Dry #1 Interpretation EKG Date: 11/01/20 Time: 15:47 Rhythm: NSR Rate (Beats/Min): 94 [place]: Normal P-Wave: Present QRS: Normal ST-T: Normal QT: Normal Comparison: No Change EKG Interpretation Comments: I reviewed EKG showing sinus rhythm rate of 94 [place] 123 QRS is 86 QT corrected [address] changes, Srivastava no acute ischemic changes are noted. Course - Vital Signs Last Recorded V/S: Last Vital Signs Temp 97.1 F 11/01/20 14:59 Pulse 105 H 11/01/20 14:59 Resp 18 11/01/20 14:59 BP 116/78 11/01/20 14:59 Pulse Ox 92 L 11/01/20 14:59 - Orders/Labs/Meds Orders: Active Orders 24 hr Category Date Time Status EKG Documentation Completion [RC] ASDIRECTED Care 11/01/20 15:41 Active URINALYSIS W/MICROSCOPIC [UA W/MICROSCOPIC] [URIN] Stat Lab 11/01/20 15:29 Ordered EKG 12 Lead [EK] Stat Ther 11/01/20 15:40 Ordered Labs: Laboratory Tests 11/01/20 11/01/20 11/01/20 Range/Units 15:33 15:33 16:05 WBC 7.6 (4.23-9.07) K/mm3 RBC 6.4 H (4.63-6.08) M/mm3 Hgb 20 H D (13.7-17.5) gm/dl Hct 63.5 H (40.1-51.0) % MCV 99.2 H (79.0-92.2) fl MCH 31.3 (25.7-32.2) pg MCHC 31.5 L (32.2-35.5) g/dl RDW Std Deviation 46.1 H (35.1-43.9) fL Plt Count 142 L D (163-337) K/mm3 MPV 9.9 (9.4-12.3) fl Neut % (Auto) 75.0 H (34.0-67.9) % Lymph % (Auto) 15.1 L (21.8-53.1) % [place] % (Auto) 9.2 (5.3-12.2) % Eos % (Auto) 0.7 L (0.8-7.0) Baso % (Auto) 0.0 L (0.1-1.2) % Neut # (Auto) 1.14 L (1.78-5.38) K/mm3 Lymph # (Auto) 0.23 L (1.32-3.57) K/mm3 [place] # (Auto) 0.14 L (0.30-0.82) K/mm3 Eos # (Auto) 0.01 L (0.04-0.54) K/mm3 Baso # (Auto) 0.00 L (0.01-0.08) K/mm3 Manual Slide Review Abnormal smear VBG pH (7.30-7.40) VBG pCO2 (41-51) mmHg VBG pO2 (40-80) mmHG VBG HCO3 (22-26) meq/L VBG O2 Saturation VBG Base Excess (-4.0-2.0) O2 Delivery Device Sodium 139 (136-145) mEq/L Potassium 5.0 (3.5-5.1) mEq/L Chloride 99 (98-107) mEq/L Carbon Dioxide 31 (21-32) mEq/L Anion Gap 14.0 (5-15) BUN 28 H (7-18) mg/dL Creatinine 1.4 H (0.7-1.3) mg/dL Est Cr Clr Drug Dosing 49.68 mL/min Estimated GFR (MDRD) 50 (>60) mL/min BUN/Creatinine Ratio 20.0 H (14-18) Glucose 123 H (70-99) mg/dL Calcium 8.8 (8.5-10.1) mg/dL Total Bilirubin 1.2 H (0.2-1.0) mg/dL AST 16 (15-37) U/L ALT 29 (16-63) U/L Alkaline Phosphatase 90 (46-116) U/L Troponin I < 0.017 (0.00-0.056) ng/mL Total Protein 7.2 (6.4-8.2) g/dl Albumin 3.4 (3.4-5.0) g/dl Globulin 3.8 gm/dL Albumin/Globulin Ratio 0.9 L (1-2) TSH 3rd Generation 2.210 (0.358-3.74) uIU/mL Ethyl Alcohol 0.00 (0.00) gm% Influenza Type A RNA Negative (NEGATIVE) Influenza Type B RNA Negative (NEGATIVE) SARS-CoV-2 RNA (ALYSHA) Negative (NEGATIVE) 11/01/20 Range/Units 16:40 WBC (4.23-9.07) K/mm3 RBC (4.63-6.08) M/mm3 Hgb (13.7-17.5) gm/dl Hct (40.1-51.0) % MCV (79.0-92.2) fl MCH (25.7-32.2) pg MCHC (32.2-35.5) g/dl RDW Std Deviation (35.1-43.9) fL Plt Count (163-337) K/mm3 MPV (9.4-12.3) fl Neut % (Auto) (34.0-67.9) % Lymph % (Auto) (21.8-53.1) % [place] % (Auto) (5.3-12.2) % Eos % (Auto) (0.8-7.0) Baso % (Auto) (0.1-1.2) % Neut # (Auto) (1.78-5.38) K/mm3 Lymph # (Auto) (1.32-3.57) K/mm3 [place] # (Auto) (0.30-0.82) K/mm3 Eos # (Auto) (0.04-0.54) K/mm3 Baso # (Auto) (0.01-0.08) K/mm3 Manual Slide Review VBG pH 7.38 (7.30-7.40) VBG pCO2 51.4 H (41-51) mmHg VBG pO2 34.0 L (40-80) mmHG VBG HCO3 29.4 H (22-26) meq/L VBG O2 Saturation 47.7 VBG Base Excess 3.1 H (-4.0-2.0) O2 Delivery Device Room air Sodium (136-145) mEq/L Potassium (3.5-5.1) mEq/L Chloride (98-107) mEq/L Carbon Dioxide (21-32) mEq/L Anion Gap (5-15) BUN (7-18) mg/dL Creatinine (0.7-1.3) mg/dL Est Cr Clr Drug Dosing mL/min Estimated GFR (MDRD) (>60) mL/min BUN/Creatinine Ratio (14-18) Glucose (70-99) mg/dL Calcium (8.5-10.1) mg/dL Total Bilirubin (0.2-1.0) mg/dL AST (15-37) U/L ALT (16-63) U/L Alkaline Phosphatase (46-116) U/L Troponin I (0.00-0.056) ng/mL Total Protein (6.4-8.2) g/dl Albumin (3.4-5.0) g/dl Globulin gm/dL Albumin/Globulin Ratio (1-2) TSH 3rd Generation (0.358-3.74) uIU/mL Ethyl Alcohol (0.00) gm% Influenza Type A RNA (NEGATIVE) Influenza Type B RNA (NEGATIVE) SARS-CoV-2 RNA (ALYSHA) (NEGATIVE) Meds: Medications Discontinued Medications Generic Name Dose Route Start Last Admin Trade Name Freq PRN Reason Stop Dose Admin Sodium Chloride 1,000 mls @ 999 mls/hr 11/01/20 15:30 11/01/20 15:43 Normal Saline IV 11/01/20 16:30 999 mls/hr ONETIME ONE Administration - Radiology Interpretation Free Text/Narrative:: CT of the head is unremarkable for any acute findings except for some age- related changes. Portable chest x-ray is unremarked for any acute findings. Departure - Departure Time of Disposition: 17:07 Disposition: DC/Tfer to Medicaid Nur Fac 64 Condition: Fair Clinical Impression: COPD exacerbation, Cigarette smoker - Discharge Information *PRESCRIPTION DRUG MONITORING PROGRAM REVIEWED*: No *COPY OF PRESCRIPTION DRUG MONITORING REPORT IN PATIENT NATACHA: No Instructions: Dehydration, Adult, [id number], Chronic Obstructive Pulmonary Disease, [id number] Referrals: Rachael Palm [employer] WORKER [Primary Care Provider] - Forms: ED Department Discharge Sepsis Event Note (ED) - Evaluation Sepsis Screening Result: No Definite Risk - Focused Exam Vital Signs: Vital Signs Temp Pulse Resp BP Pulse Ox 11/01/20 14:59 97.1 F 105 H 18 116/78 92 L - My Orders Last 24 Hours: My Active Orders 11/01/20 15:29 URINALYSIS W/MICROSCOPIC [UA W/MICROSCOPIC] [URIN] Stat 11/01/20 15:40 EKG 12 Lead [EK] Stat 11/01/20 15:41 EKG Documentation Completion [RC] ASDIRECTED - Assessment/Plan Last 24 Hours: My Active Orders 11/01/20 15:29 URINALYSIS W/MICROSCOPIC [UA W/MICROSCOPIC] [URIN] Stat 11/01/20 15:40 EKG 12 Lead [EK] Stat 11/01/20 15:41 EKG Documentation Completion [RC] ASDIRECTED
--- NOTE | 2020-11-01 16:23 | CR ---
Chest: Portable view of the chest was obtained. Comparison: Prior chest x-ray of 10/03/18. Heart size and mediastinum are within normal limits for portable technique. Lung markings are slightly increased which appear chronic. No acute parenchymal change is seen. Prior cervical spine surgery is noted. Scattered degenerative change is noted within the spine. Osteopenia is present. Impression: 1. Stable findings as noted above. 2. Nothing acute is appreciated. Diagnostic code #2
--- NOTE | 2020-11-01 16:23 | CT ---
Head CT Technique: Multiple axial sections through the brain were obtained. Intravenous contrast was not utilized. Reconstructed coronal and sagittal images were obtained. Comparison: Prior head CT exam of 03/19/14. Findings: Ventricles along with basal cisterns and sulci over the convexities are within normal limits for the patient's age. Mild areas of diminished density are scattered within the periventricular white matter which are likely due to small vessel ischemic demyelination change. No other abnormal parenchymal densities are seen. No evidence of intracranial hemorrhage. No midline shift or mass-effect is appreciated. Mild atherosclerotic calcification is seen within the carotid siphon and within the vertebral vessels. No acute calvarial abnormality is appreciated. Visualized paranasal sinuses and mastoid sinuses show nothing acute. Impression: 1. Minimal senescent change as noted above. 2. Nothing acute is identified on noncontrast head CT study. Diagnostic code #2
[2020-11-01 16:50] LABS: CORONAVIRUS COVID-19 NAA NEGATIVE (NEGATIVE)
[2020-11-01 18:23] VITALS: BP 125/70; PULSE 94
== END 2020-11-01 18:10 ==
LOC: JD.ED 14:39
DX: J44.1 Chronic obstructive pulmonary disease with (acute) exacerbation (principal); F17.210 Nicotine dependence, cigarettes, uncomplicated; E11.9 Type 2 diabetes mellitus without complications; Z79.4 Long term (current) use of insulin; Z20.822 Contact with and (suspected) exposure to COVID-19
CPT/HCPCS: 0240U; 36415; 70450; 71045; 80053; 80307; 82803; 84443; 84484; 85025; 93005; 99285; J7030; 93010; 99283

== ENCOUNTER 2021-10-29 11:36 | Emergency (ER) | payer MEDICARE, OTHER ==
[2021-10-29] MEDS ORDERED: Sodium Chloride 0.9% 10 ML Syringe FLUSH PRN (11:52)
[2021-10-29 12:01] VITALS: BP 136/95; PULSE 141
[2021-10-29] MEDS ORDERED: Diltiazem 50 MG/10 ML SDV IVPUSH ONE (12:01)
[2021-10-29] MEDS ORDERED: Diltiazem 100 MG in Sodium Chloride 0.9% 100 ML IV SCH ×2 (12:15→14:45)
[2021-10-29] MEDS ORDERED: Levalbuterol HCl 1.25 MG/3 ML Neb NEB ONE (12:37)
[2021-10-29] MEDS ORDERED: Diltiazem IR 30 MG Tab PO ONE (13:35)
[2021-10-29] MEDS ORDERED: Heparin Sodium 5,000 Units/ML Vial IVPUSH ONE (16:13)
[2021-10-29] MEDS ORDERED: Heparin Sodium/D5W 25,000 UNITS/500 ML BAG IV SCH (16:15)
== END 2021-10-29 18:07 ==
LOC: JD.ED 11:36 → SUPCPDRO 11:36 → JD.ED 18:07
DX: J44.9 Chronic obstructive pulmonary disease, unspecified (principal); I48.92 Unspecified atrial flutter; R77.8 Other specified abnormalities of plasma proteins; F17.210 Nicotine dependence, cigarettes, uncomplicated; E11.9 Type 2 diabetes mellitus without complications; I10 Essential (primary) hypertension; M19.90 Unspecified osteoarthritis, unspecified site; Z79.84 Long term (current) use of oral hypoglycemic drugs; Z20.822 Contact with and (suspected) exposure to COVID-19
CPT/HCPCS: 36415; 71045; 80053; 83735; 83880; 84443; 84484; 85025; 86140; 87635; 93005; 94640; 96365; 96366; 96368; 96376; 99285; A9270; J1644; J3490; J7612; 93010; 99284; U0002

== ENCOUNTER 2023-01-03 07:58 | Inpatient (IN) | payer OTHER ==
[2023-01-03] MEDS ORDERED: Diltiazem 25 MG/5 ML SDV IVPUSH ONE (08:28)
[2023-01-03] MEDS ORDERED: methylPREDNISolone Sodium Succinate 125 MG/2 ML SDV IVPUSH ONE (08:29)
[2023-01-03] MEDS ORDERED: Levalbuterol HCl 1.25 MG/3 ML Neb NEB ONE (08:29)
[2023-01-03] MEDS ORDERED: Diltiazem 125 MG in Sodium Chloride 0.9% 100 ML IV SCH ×2 (08:30→11:15)
[2023-01-03 08:59] LABS: BASOPHILS ABSOLUTE AUTO 0.02 K/mm3 (0.01-0.08); BASOPHILS PERCENT AUTO 0.2 % (0.1-1.2); EOSINOPHILS ABSOLUTE AUTO 0.01 K/mm3 (0.04-0.54); EOSINOPHILS PERCENT AUTO 0.1 (0.8-7.0); HEMATOCRIT 53.9 % (40.1-51.0); HEMOGLOBIN 18.2 gm/dl (13.7-17.5); IMMATURE GRAN ABSOLUTE AUTO 0.02 K/mm3 (0.00-0.10); IMMATURE GRAN PERCENT AUTO 0.2 % (<=1.0); LYMPHOCYTES ABSOLUTE AUTO 0.55 K/mm3 (1.32-3.57); LYMPHOCYTES PERCENT AUTO 5.2 % (21.8-53.1); MEAN CORPUSCULAR HGB CONC 33.8 g/dl (32.2-35.5); MEAN CORPUSCULAR VOLUME 91.8 fl (79.0-92.2); MEAN PLATELET VOLUME 10.1 fl (9.4-12.3); MONOCYTES ABSOLUTE AUTO 0.91 K/mm3 (0.30-0.82); MONOCYTES PERCENT AUTO 8.6 % (5.3-12.2); NEUTROPHILS ABSOLUTE AUTO 9.11 K/mm3 (1.78-5.38); NEUTROPHILS PERCENT AUTO 85.7 % (34.0-67.9); PLATELET COUNT,PLT 102 K/mm3 (163-337); RED BLOOD CELL COUNT 5.87 M/mm3 (4.63-6.08); WHITE BLOOD CELL COUNT,WBC 10.62 K/mm3 (4.23-9.07)
[2023-01-03] MEDS ORDERED: Diltiazem 125 MG/25 ML SDV ONE (09:14)
[2023-01-03 09:18] LABS: A/G RATIO 0.8 (1-2); ALBUMIN 3.1 g/dl (3.4-5.0); ANION GAP 5.2 (5-15); BUN/CREATININE RATIO 21.3 (14-18); CALCIUM 8.6 mg/dL (8.5-10.1); CREATININE 0.8 mg/dL (0.7-1.3); EST CRCL DRUG DOSING (CG) 78.84 mL/min; MAGNESIUM 1.7 mg/dL (1.8-2.4); POTASSIUM,K 4.2 mEq/L (3.5-5.1); PROTEIN TOTAL,TP 7.1 g/dl (6.4-8.2); TSH 0.761 uIU/mL (0.358-3.74)
[2023-01-03 09:35] LABS: CORONAVIRUS COVID-19 NAA NEGATIVE (NEGATIVE); INFLUENZA A NAA NEGATIVE (NEGATIVE); RESPIRATORY SYNCYTIAL VIR NAA NEGATIVE (NEGATIVE)
[2023-01-03] MEDS ORDERED: Levalbuterol HCl 1.25 MG/3 ML Neb ONE (09:35)
[2023-01-03] MEDS ORDERED: Apixaban 5 MG Tab PO ONE ×2 (10:08→13:30)
[2023-01-03] MEDS ORDERED: Ondansetron 4 MG Tab.DIS PO PRN (10:58)
[2023-01-03] MEDS ORDERED: Ondansetron 4 MG/2 ML SDV IV PRN (10:58)
[2023-01-03] MEDS ORDERED: Heparin Sodium 5,000 Units/ML Vial SUBCUT SCH (11:00)
[2023-01-03] MEDS ORDERED: Sodium Chloride 0.9% 10 ML Syringe FLUSH PRN (11:01)
[2023-01-03] MEDS ORDERED: methylPREDNISolone Sodium Succinate 40 MG/1 ML SDV IVPUSH SCH (11:15)
[2023-01-03] MEDS: Diltiazem IR 60 MG Tab PO SCH ×3 (13:38→23:44)
[2023-01-03] MEDS: Metoprolol Succinate 50 MG Tab.ER PO SCH (13:40)
[2023-01-03] MEDS: methylPREDNISolone Sodium Succinate 125 MG/2 ML SDV IVPUSH SCH ×2 (14:33→21:06)
[2023-01-03] MEDS: NALOXONE HCL PO SCH (21:06)
[2023-01-03] MEDS: Apixaban 5 MG Tab PO SCH (21:06)
[2023-01-03] MEDS: BUPRENORPHINE HCL PO SCH (21:06)
[2023-01-04] MEDS: methylPREDNISolone Sodium Succinate 125 MG/2 ML SDV IVPUSH SCH ×4 (02:47→20:50)
[2023-01-04] MEDS: Diltiazem IR 60 MG Tab PO SCH ×4 (05:02→23:58)
[2023-01-04] MEDS: Albuterol/Ipratropium 3.0-0.5 MG/3 ML Neb Soln NEB PRN ×3 (05:12→18:46)
[2023-01-04 05:20] LABS: BASOPHILS ABSOLUTE AUTO 0.01 K/mm3 (0.01-0.08); BASOPHILS PERCENT AUTO 0.1 % (0.1-1.2); EOSINOPHILS PERCENT AUTO 0 (0.8-7.0); HEMATOCRIT 55.8 % (40.1-51.0); HEMOGLOBIN 18.2 gm/dl (13.7-17.5); IMMATURE GRAN ABSOLUTE AUTO 0.02 K/mm3 (0.00-0.10); IMMATURE GRAN PERCENT AUTO 0.2 % (<=1.0); LYMPHOCYTES ABSOLUTE AUTO 0.35 K/mm3 (1.32-3.57); LYMPHOCYTES PERCENT AUTO 3.9 % (21.8-53.1); MEAN CORPUSCULAR HEMOGLOBIN 30.6 pg (25.7-32.2); MEAN CORPUSCULAR HGB CONC 32.6 g/dl (32.2-35.5); MEAN CORPUSCULAR VOLUME 93.9 fl (79.0-92.2); MEAN PLATELET VOLUME 10.8 fl (9.4-12.3); MONOCYTES ABSOLUTE AUTO 0.34 K/mm3 (0.30-0.82); MONOCYTES PERCENT AUTO 3.8 % (5.3-12.2); NEUTROPHILS ABSOLUTE AUTO 8.21 K/mm3 (1.78-5.38); PLATELET COUNT,PLT 105 K/mm3 (163-337); RED BLOOD CELL COUNT 5.94 M/mm3 (4.63-6.08); WHITE BLOOD CELL COUNT,WBC 8.93 K/mm3 (4.23-9.07)
[2023-01-04 05:35] LABS: ANION GAP 4.2 (5-15); CALCIUM 8.5 mg/dL (8.5-10.1); EST CRCL DRUG DOSING (CG) 60.54 mL/min; POTASSIUM,K 5.2 mEq/L (3.5-5.1)
[2023-01-04 06:06] LABS: SLIDE REVIEW ABNORMAL SMEAR
[2023-01-04] MEDS: Rosuvastatin 10 MG Tab PO SCH (08:59)
[2023-01-04] MEDS: Apixaban 5 MG Tab PO SCH ×2 (09:00→20:50)
[2023-01-04] MEDS: Sertraline 25 MG Tab PO SCH (09:00)
[2023-01-04] MEDS: Metoprolol Succinate 50 MG Tab.ER PO SCH (09:00)
[2023-01-04] MEDS: Aspirin 81 MG Tab.Chew PO SCH (09:00)
[2023-01-04] MEDS: BUPRENORPHINE HCL PO SCH ×3 (09:23→21:00)
[2023-01-04] MEDS: NALOXONE HCL PO SCH ×3 (09:23→21:00)
[2023-01-04] MEDS: Digoxin 125 MCG Tab PO SCH (10:11)
[2023-01-04] MEDS: guaiFENesin 600 MG Tab.ER PO SCH ×2 (10:11→20:50)
[2023-01-04] MEDS: Docusate Sodium 100 MG Cap PO PRN (10:11)
[2023-01-04 11:56] LABS: BASE EXCESS ARTERIAL 4.8 (-2-2.0); BICARBONATE,ARTERIAL 35.1 meq/L (22.0-26.0); O2 SATURATION ARTERIAL 86.5 % (96.0-97.0)
[2023-01-04 11:57] LABS: PCO2 ARTERIAL 77.6 mmHg (35.0-45.0)
[2023-01-04] MEDS: Albuterol/Ipratropium 3.0-0.5 MG/3 ML Neb Soln NEB SCH ×3 (13:24→21:02)
[2023-01-04] MEDS ORDERED: Nicotine Polacrilex 2 MG Gum CHEW PRN (16:29)
[2023-01-04] MEDS: Nicotine 21 MG/24 Hr Patch TRDERM SCH (16:38)
[2023-01-05] MEDS: Albuterol/Ipratropium 3.0-0.5 MG/3 ML Neb Soln NEB PRN ×2 (00:12→16:11)
[2023-01-05] MEDS: Albuterol/Ipratropium 3.0-0.5 MG/3 ML Neb Soln NEB SCH ×6 (02:04→21:50)
[2023-01-05] MEDS: methylPREDNISolone Sodium Succinate 125 MG/2 ML SDV IVPUSH SCH ×4 (02:48→20:23)
[2023-01-05] MEDS: Diltiazem IR 60 MG Tab PO SCH ×4 (05:06→23:47)
[2023-01-05 05:11] LABS: BASOPHILS ABSOLUTE AUTO 0.01 K/mm3 (0.01-0.08); BASOPHILS PERCENT AUTO 0.1 % (0.1-1.2); EOSINOPHILS PERCENT AUTO 0 (0.8-7.0); HEMATOCRIT 52.3 % (40.1-51.0); HEMOGLOBIN 17.1 gm/dl (13.7-17.5); IMMATURE GRAN ABSOLUTE AUTO 0.04 K/mm3 (0.00-0.10); IMMATURE GRAN PERCENT AUTO 0.4 % (<=1.0); LYMPHOCYTES ABSOLUTE AUTO 0.21 K/mm3 (1.32-3.57); LYMPHOCYTES PERCENT AUTO 2.3 % (21.8-53.1); MEAN CORPUSCULAR HEMOGLOBIN 30.5 pg (25.7-32.2); MEAN CORPUSCULAR HGB CONC 32.7 g/dl (32.2-35.5); MEAN CORPUSCULAR VOLUME 93.2 fl (79.0-92.2); MEAN PLATELET VOLUME 10.4 fl (9.4-12.3); MONOCYTES PERCENT AUTO 7.8 % (5.3-12.2); NEUTROPHILS ABSOLUTE AUTO 8.02 K/mm3 (1.78-5.38); NEUTROPHILS PERCENT AUTO 89.4 % (34.0-67.9); PLATELET COUNT,PLT 114 K/mm3 (163-337); RED BLOOD CELL COUNT 5.61 M/mm3 (4.63-6.08); WHITE BLOOD CELL COUNT,WBC 8.98 K/mm3 (4.23-9.07)
[2023-01-05 05:32] LABS: ANION GAP 4.4 (5-15); BUN/CREATININE RATIO 37.8 (14-18); CALCIUM 8.8 mg/dL (8.5-10.1); CREATININE 0.9 mg/dL (0.7-1.3); EST CRCL DRUG DOSING (CG) 66.53 mL/min; POTASSIUM,K 4.4 mEq/L (3.5-5.1)
[2023-01-05] MEDS: Sertraline 25 MG Tab PO SCH (08:11)
[2023-01-05] MEDS: Rosuvastatin 10 MG Tab PO SCH (08:11)
[2023-01-05] MEDS: guaiFENesin 600 MG Tab.ER PO SCH ×2 (08:11→20:23)
[2023-01-05] MEDS: Aspirin 81 MG Tab.Chew PO SCH (08:11)
[2023-01-05] MEDS: Apixaban 5 MG Tab PO SCH ×2 (08:12→20:33)
[2023-01-05] MEDS: Digoxin 125 MCG Tab PO SCH (08:12)
[2023-01-05] MEDS: Nicotine 21 MG/24 Hr Patch TRDERM SCH (08:13)
[2023-01-05] MEDS: BUPRENORPHINE HCL PO SCH ×3 (08:16→20:32)
[2023-01-05] MEDS: NALOXONE HCL PO SCH ×3 (08:16→20:32)
[2023-01-05] MEDS ORDERED: Metoprolol Tartrate 25 MG Tab PO SCH (09:00)
[2023-01-05] MEDS ORDERED: Metoprolol Tartrate 25 MG Tab PO ONE (17:44)
[2023-01-05] MEDS ORDERED: Metoprolol Tartrate 5 MG/5 ML SDV IVPUSH PRN (18:56)
[2023-01-05] MEDS: Metoprolol Tartrate 50 MG Tab PO SCH (20:31)
[2023-01-06] MEDS: methylPREDNISolone Sodium Succinate 125 MG/2 ML SDV IVPUSH SCH ×4 (02:02→21:01)
[2023-01-06] MEDS: Albuterol/Ipratropium 3.0-0.5 MG/3 ML Neb Soln NEB SCH ×6 (02:05→21:13)
[2023-01-06] MEDS: Diltiazem IR 60 MG Tab PO SCH ×4 (05:30→23:54)
[2023-01-06 06:19] LABS: BASOPHILS ABSOLUTE AUTO 0.02 K/mm3 (0.01-0.08); BASOPHILS PERCENT AUTO 0.2 % (0.1-1.2); EOSINOPHILS PERCENT AUTO 0 (0.8-7.0); HEMATOCRIT 56.4 % (40.1-51.0); HEMOGLOBIN 18.5 gm/dl (13.7-17.5); IMMATURE GRAN ABSOLUTE AUTO 0.03 K/mm3 (0.00-0.10); IMMATURE GRAN PERCENT AUTO 0.3 % (<=1.0); LYMPHOCYTES ABSOLUTE AUTO 0.32 K/mm3 (1.32-3.57); LYMPHOCYTES PERCENT AUTO 3.4 % (21.8-53.1); MEAN CORPUSCULAR HEMOGLOBIN 30.6 pg (25.7-32.2); MEAN CORPUSCULAR HGB CONC 32.8 g/dl (32.2-35.5); MEAN CORPUSCULAR VOLUME 93.4 fl (79.0-92.2); MEAN PLATELET VOLUME 10.5 fl (9.4-12.3); MONOCYTES ABSOLUTE AUTO 0.77 K/mm3 (0.30-0.82); MONOCYTES PERCENT AUTO 8.2 % (5.3-12.2); NEUTROPHILS ABSOLUTE AUTO 8.24 K/mm3 (1.78-5.38); NEUTROPHILS PERCENT AUTO 87.9 % (34.0-67.9); PLATELET COUNT,PLT 150 K/mm3 (163-337); RED BLOOD CELL COUNT 6.04 M/mm3 (4.63-6.08); WHITE BLOOD CELL COUNT,WBC 9.38 K/mm3 (4.23-9.07)
[2023-01-06 06:52] LABS: SLIDE REVIEW ABNORMAL SMEAR
[2023-01-06] MEDS: Metoprolol Tartrate 50 MG Tab PO SCH ×2 (08:51→21:00)
[2023-01-06] MEDS: Aspirin 81 MG Tab.Chew PO SCH (08:51)
[2023-01-06] MEDS: Rosuvastatin 10 MG Tab PO SCH (08:53)
[2023-01-06] MEDS: Nicotine 21 MG/24 Hr Patch TRDERM SCH (08:53)
[2023-01-06] MEDS: Digoxin 125 MCG Tab PO SCH (08:54)
[2023-01-06] MEDS: Docusate Sodium 100 MG Cap PO PRN (08:54)
[2023-01-06] MEDS: Sertraline 25 MG Tab PO SCH (08:54)
[2023-01-06] MEDS: Apixaban 5 MG Tab PO SCH ×2 (08:54→21:00)
[2023-01-06] MEDS: guaiFENesin 600 MG Tab.ER PO SCH ×2 (08:55→21:00)
[2023-01-06] MEDS: NALOXONE HCL PO SCH ×3 (09:22→21:10)
[2023-01-06] MEDS: BUPRENORPHINE HCL PO SCH ×3 (09:22→21:10)
[2023-01-06 18:52] LABS: BICARBONATE,ARTERIAL 37.5 meq/L (22.0-26.0); O2 SATURATION ARTERIAL 49.4 % (96.0-97.0); PCO2 ARTERIAL 97.9 mmHg (35.0-45.0)
[2023-01-07] MEDS: Albuterol/Ipratropium 3.0-0.5 MG/3 ML Neb Soln NEB SCH ×6 (02:06→22:15)
[2023-01-07] MEDS: methylPREDNISolone Sodium Succinate 125 MG/2 ML SDV IVPUSH SCH ×3 (02:16→13:14)
[2023-01-07 05:28] LABS: BASOPHILS ABSOLUTE AUTO 0.04 K/mm3 (0.01-0.08); BASOPHILS PERCENT AUTO 0.5 % (0.1-1.2); EOSINOPHILS PERCENT AUTO 0 (0.8-7.0); HEMATOCRIT 57.2 % (40.1-51.0); HEMOGLOBIN 18.2 gm/dl (13.7-17.5); IMMATURE GRAN ABSOLUTE AUTO 0.03 K/mm3 (0.00-0.10); IMMATURE GRAN PERCENT AUTO 0.3 % (<=1.0); LYMPHOCYTES ABSOLUTE AUTO 0.52 K/mm3 (1.32-3.57); MEAN CORPUSCULAR HEMOGLOBIN 30.3 pg (25.7-32.2); MEAN CORPUSCULAR HGB CONC 31.8 g/dl (32.2-35.5); MEAN CORPUSCULAR VOLUME 95.3 fl (79.0-92.2); MEAN PLATELET VOLUME 10.4 fl (9.4-12.3); MONOCYTES ABSOLUTE AUTO 0.87 K/mm3 (0.30-0.82); MONOCYTES PERCENT AUTO 10.1 % (5.3-12.2); NEUTROPHILS ABSOLUTE AUTO 7.16 K/mm3 (1.78-5.38); NEUTROPHILS PERCENT AUTO 83.1 % (34.0-67.9); PLATELET COUNT,PLT 138 K/mm3 (163-337); WHITE BLOOD CELL COUNT,WBC 8.62 K/mm3 (4.23-9.07)
[2023-01-07 05:53] LABS: A/G RATIO 0.7 (1-2); BILIRUBIN TOTAL 0.6 mg/dL (0.2-1.0); CALCIUM 8.8 mg/dL (8.5-10.1); CREATININE 0.9 mg/dL (0.7-1.3); EST CRCL DRUG DOSING (CG) 66.06 mL/min; PROTEIN TOTAL,TP 7.1 g/dl (6.4-8.2)
[2023-01-07 05:59] LABS: BICARBONATE,ARTERIAL 36.9 meq/L (22.0-26.0); O2 SATURATION ARTERIAL 86.7 % (96.0-97.0); PCO2 ARTERIAL 81.6 mmHg (35.0-45.0)
[2023-01-07] MEDS: Diltiazem IR 60 MG Tab PO SCH ×4 (06:06→23:49)
[2023-01-07 06:15] LABS: ANION GAP 7.2 (5-15); POTASSIUM,K 6.2 mEq/L (3.5-5.1)
[2023-01-07 06:53] LABS: SLIDE REVIEW ABNORMAL SMEAR
[2023-01-07] MEDS ORDERED: Sodium Polystyrene Sulfonate 15 GM/60 ML Susp 60 ML Bot PO ONE (07:10)
[2023-01-07] MEDS ORDERED: Sodium Chloride 0.9% 10 ML Syringe FLUSH PRN (07:58)
[2023-01-07] MEDS ORDERED: Iopamidol 755 Mg/ML 100 ML Bottle IVPUSH ONE (07:58)
[2023-01-07] MEDS ORDERED: Sodium Chloride 0.9% 100 ML IV SCH (08:00)
[2023-01-07] MEDS: Digoxin 125 MCG Tab PO SCH (08:46)
[2023-01-07] MEDS: Metoprolol Tartrate 50 MG Tab PO SCH ×2 (08:47→20:29)
[2023-01-07] MEDS: Aspirin 81 MG Tab.Chew PO SCH (08:47)
[2023-01-07] MEDS: Apixaban 5 MG Tab PO SCH ×2 (08:48→20:32)
[2023-01-07] MEDS: Sertraline 25 MG Tab PO SCH (08:48)
[2023-01-07] MEDS: Nicotine 21 MG/24 Hr Patch TRDERM SCH (08:48)
[2023-01-07] MEDS: guaiFENesin 600 MG Tab.ER PO SCH ×2 (08:48→20:29)
[2023-01-07] MEDS: Rosuvastatin 10 MG Tab PO SCH (08:48)
[2023-01-07] MEDS ORDERED: Furosemide 40 MG/4 ML VIAL IVPUSH ONE (09:00)
[2023-01-07] MEDS: BUPRENORPHINE HCL PO SCH ×3 (09:04→20:35)
[2023-01-07] MEDS: NALOXONE HCL PO SCH ×3 (09:04→20:35)
[2023-01-07] MEDS: cefTRIAXone 2 GM in Sodium Chloride 0.9% 100 ML IV SCH (09:27)
[2023-01-07] MEDS: Azithromycin 500 MG in Sodium Chloride 0.9% 250 ML IV SCH (09:28)
[2023-01-07 17:59] LABS: APPEARANCE,URINE CLEAR (Clear); BILIRUBIN,URINE NEGATIVE (Negative); COLOR,URINE YELLOW (Yellow); GLUCOSE,URINE NEGATIVE (Negative); KETONES,URINE NEGATIVE (Negative); LEUKOCYTE ESTERASE,URINE NEGATIVE (Negative); NITRITE,URINE NEGATIVE (Negative); OCCULT BLOOD,URINE NEGATIVE (Negative); PROTEIN,URINE NEGATIVE (Negative); UROBILINOGEN,URINE 0.2 (0.2-1.0)
[2023-01-07 18:31] LABS: ANION GAP 7.1 (5-15); BUN/CREATININE RATIO 38.2 (14-18); CALCIUM 8.7 mg/dL (8.5-10.1); CREATININE 1.1 mg/dL (0.7-1.3); EST CRCL DRUG DOSING (CG) 55.11 mL/min; POTASSIUM,K 5.1 mEq/L (3.5-5.1)
[2023-01-07 18:41] LABS: BACTERIA,URINE FEW /hpf (FEW); MUCUS,URINE FEW /hpf (FEW); RBC,URINE 0-5 /hpf (0-5); SQUAMOUS EPITHELIAL CELLS,UR 0-5 /hpf (0-5); WBC,URINE 0-5 /hpf (0-5)
[2023-01-08] MEDS: Albuterol/Ipratropium 3.0-0.5 MG/3 ML Neb Soln NEB SCH ×6 (02:11→21:26)
[2023-01-08 05:57] LABS: BASOPHILS ABSOLUTE AUTO 0.07 K/mm3 (0.01-0.08); BASOPHILS PERCENT AUTO 0.8 % (0.1-1.2); EOSINOPHILS PERCENT AUTO 0 (0.8-7.0); HEMATOCRIT 56.4 % (40.1-51.0); HEMOGLOBIN 17.7 gm/dl (13.7-17.5); IMMATURE GRAN ABSOLUTE AUTO 0.05 K/mm3 (0.00-0.10); IMMATURE GRAN PERCENT AUTO 0.6 % (<=1.0); LYMPHOCYTES ABSOLUTE AUTO 1.14 K/mm3 (1.32-3.57); LYMPHOCYTES PERCENT AUTO 12.6 % (21.8-53.1); MEAN CORPUSCULAR HEMOGLOBIN 30.6 pg (25.7-32.2); MEAN CORPUSCULAR HGB CONC 31.4 g/dl (32.2-35.5); MEAN CORPUSCULAR VOLUME 97.6 fl (79.0-92.2); MEAN PLATELET VOLUME 10.2 fl (9.4-12.3); MONOCYTES ABSOLUTE AUTO 0.47 K/mm3 (0.30-0.82); MONOCYTES PERCENT AUTO 5.2 % (5.3-12.2); NEUTROPHILS PERCENT AUTO 80.8 % (34.0-67.9); PLATELET COUNT,PLT 137 K/mm3 (163-337); RED BLOOD CELL COUNT 5.78 M/mm3 (4.63-6.08); WHITE BLOOD CELL COUNT,WBC 9.03 K/mm3 (4.23-9.07)
[2023-01-08] MEDS: Diltiazem IR 60 MG Tab PO SCH ×3 (06:09→17:34)
[2023-01-08 06:27] LABS: ANION GAP 4.2 (5-15); BUN/CREATININE RATIO 41.1 (14-18); CALCIUM 8.5 mg/dL (8.5-10.1); CREATININE 0.9 mg/dL (0.7-1.3); EST CRCL DRUG DOSING (CG) 68.1 mL/min; POTASSIUM,K 5.2 mEq/L (3.5-5.1)
[2023-01-08 06:28] LABS: MAGNESIUM 2.2 mg/dL (1.8-2.4); PHOSPHORUS 3.7 mg/dL (2.6-4.7)
[2023-01-08 07:15] LABS: SLIDE REVIEW ABNORMAL SMEAR
[2023-01-08] MEDS ORDERED: Furosemide 40 MG/4 ML VIAL IVPUSH ONE (08:42)
[2023-01-08] MEDS: cefTRIAXone 2 GM in Sodium Chloride 0.9% 100 ML IV SCH (09:21)
[2023-01-08] MEDS: Aspirin 81 MG Tab.Chew PO SCH (09:28)
[2023-01-08] MEDS: Sertraline 25 MG Tab PO SCH (09:28)
[2023-01-08] MEDS: Rosuvastatin 10 MG Tab PO SCH (09:28)
[2023-01-08] MEDS: Digoxin 125 MCG Tab PO SCH (09:28)
[2023-01-08] MEDS: guaiFENesin 600 MG Tab.ER PO SCH ×2 (09:28→20:39)
[2023-01-08] MEDS: Metoprolol Tartrate 50 MG Tab PO SCH ×2 (09:28→20:40)
[2023-01-08] MEDS: Nicotine 21 MG/24 Hr Patch TRDERM SCH (09:29)
[2023-01-08] MEDS: Apixaban 5 MG Tab PO SCH ×2 (09:30→20:39)
[2023-01-08] MEDS: NALOXONE HCL PO SCH ×3 (09:30→20:48)
[2023-01-08] MEDS: BUPRENORPHINE HCL PO SCH ×3 (09:30→20:48)
[2023-01-08] MEDS: methylPREDNISolone Sodium Succinate 125 MG/2 ML SDV IVPUSH SCH (09:32)
[2023-01-08] MEDS: Azithromycin 500 MG in Sodium Chloride 0.9% 250 ML IV SCH (10:02)
[2023-01-09] MEDS: Diltiazem IR 60 MG Tab PO SCH ×4 (00:14→21:06)
[2023-01-09] MEDS: Albuterol/Ipratropium 3.0-0.5 MG/3 ML Neb Soln NEB SCH ×6 (02:10→21:21)
[2023-01-09 05:24] LABS: BASOPHILS ABSOLUTE AUTO 0.07 K/mm3 (0.01-0.08); BASOPHILS PERCENT AUTO 0.6 % (0.1-1.2); EOSINOPHILS PERCENT AUTO 0 (0.8-7.0); HEMATOCRIT 56.9 % (40.1-51.0); HEMOGLOBIN 17.6 gm/dl (13.7-17.5); IMMATURE GRAN ABSOLUTE AUTO 0.08 K/mm3 (0.00-0.10); IMMATURE GRAN PERCENT AUTO 0.7 % (<=1.0); LYMPHOCYTES ABSOLUTE AUTO 1.26 K/mm3 (1.32-3.57); LYMPHOCYTES PERCENT AUTO 10.7 % (21.8-53.1); MEAN CORPUSCULAR HGB CONC 30.9 g/dl (32.2-35.5); MEAN CORPUSCULAR VOLUME 97.1 fl (79.0-92.2); MEAN PLATELET VOLUME 10.1 fl (9.4-12.3); MONOCYTES ABSOLUTE AUTO 0.51 K/mm3 (0.30-0.82); MONOCYTES PERCENT AUTO 4.3 % (5.3-12.2); NEUTROPHILS ABSOLUTE AUTO 9.87 K/mm3 (1.78-5.38); NEUTROPHILS PERCENT AUTO 83.7 % (34.0-67.9); PLATELET COUNT,PLT 139 K/mm3 (163-337); RED BLOOD CELL COUNT 5.86 M/mm3 (4.63-6.08); WHITE BLOOD CELL COUNT,WBC 11.79 K/mm3 (4.23-9.07)
[2023-01-09 06:05] LABS: A/G RATIO 0.7 (1-2); ALBUMIN 2.7 g/dl (3.4-5.0); ANION GAP 1.1 (5-15); BILIRUBIN TOTAL 0.4 mg/dL (0.2-1.0); BUN/CREATININE RATIO 38.2 (14-18); CALCIUM 8.9 mg/dL (8.5-10.1); CREATININE 1.1 mg/dL (0.7-1.3); EST CRCL DRUG DOSING (CG) 53.33 mL/min; POTASSIUM,K 5.1 mEq/L (3.5-5.1); PROTEIN TOTAL,TP 6.5 g/dl (6.4-8.2)
[2023-01-09 06:19] LABS: SLIDE REVIEW ABNORMAL SMEAR
[2023-01-09] MEDS: Aspirin 81 MG Tab.Chew PO SCH (09:18)
[2023-01-09] MEDS: guaiFENesin 600 MG Tab.ER PO SCH ×2 (09:18→21:05)
[2023-01-09] MEDS: Digoxin 125 MCG Tab PO SCH (09:19)
[2023-01-09] MEDS: Metoprolol Tartrate 50 MG Tab PO SCH ×2 (09:19→21:06)
[2023-01-09] MEDS: Rosuvastatin 10 MG Tab PO SCH (09:21)
[2023-01-09] MEDS: Apixaban 5 MG Tab PO SCH ×2 (09:21→21:07)
[2023-01-09] MEDS: Sertraline 25 MG Tab PO SCH (09:21)
[2023-01-09] MEDS: Nicotine 21 MG/24 Hr Patch TRDERM SCH (09:22)
[2023-01-09] MEDS: methylPREDNISolone Sodium Succinate 125 MG/2 ML SDV IVPUSH SCH ×2 (09:22)
[2023-01-09] MEDS: cefTRIAXone 2 GM in Sodium Chloride 0.9% 100 ML IV SCH (09:23)
[2023-01-09] MEDS: NALOXONE HCL PO SCH ×3 (09:23→21:08)
[2023-01-09] MEDS: BUPRENORPHINE HCL PO SCH ×3 (09:23→21:08)
[2023-01-09] MEDS: Azithromycin 500 MG in Sodium Chloride 0.9% 250 ML IV SCH (10:17)
[2023-01-09] MEDS ORDERED: Furosemide 40 MG/4 ML VIAL IVPUSH ONE (12:00)
[2023-01-09 12:18] LABS: BASE EXCESS ARTERIAL 12.2 (-2-2.0); BICARBONATE,ARTERIAL 41.4 meq/L (22.0-26.0); O2 SATURATION ARTERIAL 80.2 % (96.0-97.0)
[2023-01-09 12:20] LABS: PCO2 ARTERIAL 70.5 mmHg (35.0-45.0)
[2023-01-10] MEDS: Albuterol/Ipratropium 3.0-0.5 MG/3 ML Neb Soln NEB SCH ×6 (01:38→21:40)
[2023-01-10 05:20] LABS: BASOPHILS ABSOLUTE AUTO 0.03 K/mm3 (0.01-0.08); BASOPHILS PERCENT AUTO 0.3 % (0.1-1.2); EOSINOPHILS PERCENT AUTO 0 (0.8-7.0); HEMATOCRIT 53.8 % (40.1-51.0); HEMOGLOBIN 17.1 gm/dl (13.7-17.5); IMMATURE GRAN ABSOLUTE AUTO 0.11 K/mm3 (0.00-0.10); IMMATURE GRAN PERCENT AUTO 0.9 % (<=1.0); LYMPHOCYTES ABSOLUTE AUTO 0.55 K/mm3 (1.32-3.57); LYMPHOCYTES PERCENT AUTO 4.6 % (21.8-53.1); MEAN CORPUSCULAR HEMOGLOBIN 30.6 pg (25.7-32.2); MEAN CORPUSCULAR HGB CONC 31.8 g/dl (32.2-35.5); MEAN CORPUSCULAR VOLUME 96.2 fl (79.0-92.2); MEAN PLATELET VOLUME 10.1 fl (9.4-12.3); MONOCYTES ABSOLUTE AUTO 1.15 K/mm3 (0.30-0.82); MONOCYTES PERCENT AUTO 9.6 % (5.3-12.2); NEUTROPHILS ABSOLUTE AUTO 10.13 K/mm3 (1.78-5.38); NEUTROPHILS PERCENT AUTO 84.6 % (34.0-67.9); PLATELET COUNT,PLT 130 K/mm3 (163-337); RED BLOOD CELL COUNT 5.59 M/mm3 (4.63-6.08); WHITE BLOOD CELL COUNT,WBC 11.97 K/mm3 (4.23-9.07)
[2023-01-10 06:01] LABS: A/G RATIO 0.7 (1-2); ALBUMIN 2.6 g/dl (3.4-5.0); BILIRUBIN TOTAL 0.5 mg/dL (0.2-1.0); CALCIUM 8.3 mg/dL (8.5-10.1); EST CRCL DRUG DOSING (CG) 59.51 mL/min; POTASSIUM,K 4.9 mEq/L (3.5-5.1); PROTEIN TOTAL,TP 6.1 g/dl (6.4-8.2)
[2023-01-10 06:08] LABS: ANION GAP 3.9 (5-15)
[2023-01-10 06:14] LABS: SLIDE REVIEW ABNORMAL SMEAR
[2023-01-10] MEDS: LORazepam 0.5 MG Tab PO PRN (08:25)
[2023-01-10] MEDS: Diltiazem IR 60 MG Tab PO SCH (08:27)
[2023-01-10] MEDS: guaiFENesin 600 MG Tab.ER PO SCH ×2 (08:28→20:24)
[2023-01-10] MEDS: Metoprolol Tartrate 50 MG Tab PO SCH ×2 (08:28→20:24)
[2023-01-10] MEDS: Sertraline 25 MG Tab PO SCH (08:28)
[2023-01-10] MEDS: Apixaban 5 MG Tab PO SCH ×2 (08:28→20:23)
[2023-01-10] MEDS: Digoxin 125 MCG Tab PO SCH (08:28)
[2023-01-10] MEDS: Rosuvastatin 10 MG Tab PO SCH (08:28)
[2023-01-10] MEDS: BUPRENORPHINE HCL PO SCH ×3 (08:29→20:26)
[2023-01-10] MEDS: Nicotine 21 MG/24 Hr Patch TRDERM SCH (08:29)
[2023-01-10] MEDS: NALOXONE HCL PO SCH ×3 (08:29→20:26)
[2023-01-10] MEDS: Aspirin 81 MG Tab.Chew PO SCH (08:29)
[2023-01-10] MEDS: methylPREDNISolone Sodium Succinate 125 MG/2 ML SDV IVPUSH SCH (08:35)
[2023-01-10] MEDS: cefTRIAXone 2 GM in Sodium Chloride 0.9% 100 ML IV SCH (08:44)
[2023-01-10] MEDS: Azithromycin 500 MG in Sodium Chloride 0.9% 250 ML IV SCH (09:18)
[2023-01-10] MEDS ORDERED: Formoterol/Mometasone 200-5 MCG 8.8 GM Inhaler IH SCH (18:15)
[2023-01-10] MEDS: Diltiazem 180 MG Cap.CD PO SCH (20:26)
[2023-01-10] MEDS: Formoterol/Mometasone 200-5 MCG 8.8 GM Inhaler IH SCH (21:40)
[2023-01-11] MEDS: Albuterol/Ipratropium 3.0-0.5 MG/3 ML Neb Soln NEB SCH ×6 (02:03→21:14)
[2023-01-11 05:12] LABS: BASOPHILS ABSOLUTE AUTO 0.02 K/mm3 (0.01-0.08); BASOPHILS PERCENT AUTO 0.2 % (0.1-1.2); EOSINOPHILS PERCENT AUTO 0 (0.8-7.0); HEMATOCRIT 54.5 % (40.1-51.0); IMMATURE GRAN ABSOLUTE AUTO 0.16 K/mm3 (0.00-0.10); IMMATURE GRAN PERCENT AUTO 1.2 % (<=1.0); LYMPHOCYTES ABSOLUTE AUTO 0.53 K/mm3 (1.32-3.57); MEAN CORPUSCULAR HEMOGLOBIN 30.6 pg (25.7-32.2); MEAN CORPUSCULAR HGB CONC 31.2 g/dl (32.2-35.5); MEAN PLATELET VOLUME 9.9 fl (9.4-12.3); MONOCYTES ABSOLUTE AUTO 0.98 K/mm3 (0.30-0.82); MONOCYTES PERCENT AUTO 7.4 % (5.3-12.2); NEUTROPHILS ABSOLUTE AUTO 11.53 K/mm3 (1.78-5.38); NEUTROPHILS PERCENT AUTO 87.2 % (34.0-67.9); PLATELET COUNT,PLT 127 K/mm3 (163-337); RED BLOOD CELL COUNT 5.56 M/mm3 (4.63-6.08); WHITE BLOOD CELL COUNT,WBC 13.22 K/mm3 (4.23-9.07)
[2023-01-11 05:32] LABS: ANION GAP 2.3 (5-15); CALCIUM 8.6 mg/dL (8.5-10.1); CREATININE 0.9 mg/dL (0.7-1.3); EST CRCL DRUG DOSING (CG) 66.12 mL/min; POTASSIUM,K 5.3 mEq/L (3.5-5.1)
[2023-01-11 06:24] LABS: SLIDE REVIEW ABNORMAL SMEAR
[2023-01-11] MEDS: cefTRIAXone 2 GM in Sodium Chloride 0.9% 100 ML IV SCH (08:00)
[2023-01-11] MEDS: Diltiazem 180 MG Cap.CD PO SCH (08:01)
[2023-01-11] MEDS: Digoxin 125 MCG Tab PO SCH (08:01)
[2023-01-11] MEDS: Metoprolol Tartrate 50 MG Tab PO SCH ×2 (08:01→20:13)
[2023-01-11] MEDS: Apixaban 5 MG Tab PO SCH ×2 (08:02→20:13)
[2023-01-11] MEDS: Aspirin 81 MG Tab.Chew PO SCH (08:02)
[2023-01-11] MEDS: guaiFENesin 600 MG Tab.ER PO SCH ×2 (08:02→20:13)
[2023-01-11] MEDS: Nicotine 21 MG/24 Hr Patch TRDERM SCH (08:05)
[2023-01-11] MEDS: BUPRENORPHINE HCL PO SCH ×5 (08:05→20:12)
[2023-01-11] MEDS: NALOXONE HCL PO SCH ×5 (08:05→20:12)
[2023-01-11] MEDS: Rosuvastatin 10 MG Tab PO SCH (08:05)
[2023-01-11] MEDS: methylPREDNISolone Sodium Succinate 125 MG/2 ML SDV IVPUSH SCH (08:07)
[2023-01-11] MEDS: Sertraline 25 MG Tab PO SCH (08:08)
[2023-01-11] MEDS: Azithromycin 500 MG in Sodium Chloride 0.9% 250 ML IV SCH (08:56)
[2023-01-11] MEDS: Formoterol/Mometasone 200-5 MCG 8.8 GM Inhaler IH SCH ×2 (09:22→21:14)
[2023-01-11] MEDS: predniSONE 20 MG Tab PO SCH (13:21)
[2023-01-11] MEDS: Diltiazem 240 MG Cap.ER PO SCH (20:16)
[2023-01-12] MEDS: Albuterol/Ipratropium 3.0-0.5 MG/3 ML Neb Soln NEB SCH ×6 (01:37→21:23)
[2023-01-12] MEDS: predniSONE 20 MG Tab PO SCH (06:29)
[2023-01-12] MEDS: Metoprolol Tartrate 50 MG Tab PO SCH ×2 (07:21→09:22)
[2023-01-12] MEDS: Digoxin 125 MCG Tab PO SCH ×2 (07:21→09:22)
[2023-01-12] MEDS: Diltiazem 240 MG Cap.ER PO SCH ×3 (07:21→21:30)
[2023-01-12] MEDS: Formoterol/Mometasone 200-5 MCG 8.8 GM Inhaler IH SCH ×2 (09:15→21:23)
[2023-01-12] MEDS: Rosuvastatin 10 MG Tab PO SCH (09:40)
[2023-01-12] MEDS: Sertraline 25 MG Tab PO SCH (09:41)
[2023-01-12] MEDS: Apixaban 5 MG Tab PO SCH ×2 (09:41→21:30)
[2023-01-12] MEDS: Aspirin 81 MG Tab.Chew PO SCH (09:42)
[2023-01-12] MEDS: guaiFENesin 600 MG Tab.ER PO SCH ×2 (09:42→21:29)
[2023-01-12] MEDS: Nicotine 21 MG/24 Hr Patch TRDERM SCH (09:43)
[2023-01-12] MEDS: cefTRIAXone 2 GM in Sodium Chloride 0.9% 100 ML IV SCH (09:48)
[2023-01-12] MEDS ORDERED: Metoprolol Tartrate 50 MG Tab PO ONE (10:00)
[2023-01-12] MEDS: NALOXONE HCL PO SCH ×3 (10:01→21:37)
[2023-01-12] MEDS: BUPRENORPHINE HCL PO SCH ×3 (10:01→21:37)
[2023-01-12] MEDS: Azithromycin 500 MG in Sodium Chloride 0.9% 250 ML IV SCH (11:31)
[2023-01-12] MEDS: Metoprolol Tartrate 100 MG Tab PO SCH (21:30)
[2023-01-13] MEDS: Acetaminophen 325 MG Tab PO PRN ×2 (00:41→07:55)
[2023-01-13] MEDS: Albuterol/Ipratropium 3.0-0.5 MG/3 ML Neb Soln NEB SCH ×6 (01:57→21:08)
[2023-01-13] MEDS: LORazepam 0.5 MG Tab PO PRN (03:51)
[2023-01-13 05:47] LABS: A/G RATIO 0.9 (1-2); ALBUMIN 2.3 g/dl (3.4-5.0); ANION GAP 4.2 (5-15); BILIRUBIN TOTAL 0.8 mg/dL (0.2-1.0); CALCIUM 8.4 mg/dL (8.5-10.1); EST CRCL DRUG DOSING (CG) 60.96 mL/min; MAGNESIUM 1.5 mg/dL (1.8-2.4); POTASSIUM,K 5.2 mEq/L (3.5-5.1)
[2023-01-13 06:06] LABS: BASOPHILS ABSOLUTE AUTO 0.01 K/mm3 (0.01-0.08); BASOPHILS PERCENT AUTO 0.1 % (0.1-1.2); EOSINOPHILS ABSOLUTE AUTO 0.12 K/mm3 (0.04-0.54); EOSINOPHILS PERCENT AUTO 0.7 (0.8-7.0); HEMATOCRIT 40.5 % (40.1-51.0); IMMATURE GRAN ABSOLUTE AUTO 0.21 K/mm3 (0.00-0.10); IMMATURE GRAN PERCENT AUTO 1.2 % (<=1.0); LYMPHOCYTES ABSOLUTE AUTO 1.37 K/mm3 (1.32-3.57); LYMPHOCYTES PERCENT AUTO 7.6 % (21.8-53.1); MEAN CORPUSCULAR HEMOGLOBIN 30.8 pg (25.7-32.2); MEAN CORPUSCULAR HGB CONC 33.6 g/dl (32.2-35.5); MEAN CORPUSCULAR VOLUME 91.6 fl (79.0-92.2); MEAN PLATELET VOLUME 10.7 fl (9.4-12.3); MONOCYTES ABSOLUTE AUTO 1.49 K/mm3 (0.30-0.82); MONOCYTES PERCENT AUTO 8.3 % (5.3-12.2); NEUTROPHILS ABSOLUTE AUTO 14.86 K/mm3 (1.78-5.38); NEUTROPHILS PERCENT AUTO 82.1 % (34.0-67.9); PLATELET COUNT,PLT 145 K/mm3 (163-337); RED BLOOD CELL COUNT 4.42 M/mm3 (4.63-6.08); WHITE BLOOD CELL COUNT,WBC 18.06 K/mm3 (4.23-9.07)
[2023-01-13 06:32] LABS: HEMOGLOBIN 13.6 gm/dl (13.7-17.5)
[2023-01-13] MEDS: predniSONE 20 MG Tab PO SCH (07:15)
[2023-01-13] MEDS: Digoxin 125 MCG Tab PO SCH ×2 (07:54)
[2023-01-13] MEDS: Metoprolol Tartrate 100 MG Tab PO SCH ×2 (07:54→07:56)
[2023-01-13] MEDS: Diltiazem 240 MG Cap.ER PO SCH ×2 (07:55→14:28)
[2023-01-13 08:05] LABS: SLIDE REVIEW ABNORMAL SMEAR
[2023-01-13] MEDS: Aspirin 81 MG Tab.Chew PO SCH (08:39)
[2023-01-13] MEDS: Rosuvastatin 10 MG Tab PO SCH (08:39)
[2023-01-13] MEDS: Cefdinir 300 MG Cap PO SCH ×2 (08:39→20:11)
[2023-01-13] MEDS: guaiFENesin 600 MG Tab.ER PO SCH ×2 (08:39→20:11)
[2023-01-13] MEDS: Apixaban 5 MG Tab PO SCH ×2 (08:39→20:11)
[2023-01-13] MEDS: Nicotine 21 MG/24 Hr Patch TRDERM SCH (08:39)
[2023-01-13] MEDS: Sertraline 25 MG Tab PO SCH (08:40)
[2023-01-13] MEDS: NALOXONE HCL PO SCH ×3 (09:00→20:11)
[2023-01-13] MEDS: BUPRENORPHINE HCL PO SCH ×3 (09:00→20:11)
[2023-01-13] MEDS: Formoterol/Mometasone 200-5 MCG 8.8 GM Inhaler IH SCH ×2 (09:14→21:08)
[2023-01-13] MEDS ORDERED: Magnesium Sulfate (4.06 MEQ/ML) 5 GM/10 ML SDV IV ONE (11:47)
[2023-01-13] MEDS ORDERED: Magnesium Sulfate/Water 2 GM in Premix Bag 1 BAG IV ONE (12:00)
[2023-01-13] MEDS: Diltiazem 300 MG Cap.CD PO SCH (20:11)
[2023-01-13] MEDS: Metoprolol Tartrate 50 MG Tab PO SCH (20:11)
[2023-01-14] MEDS: Acetaminophen 325 MG Tab PO PRN (02:02)
[2023-01-14] MEDS: Albuterol/Ipratropium 3.0-0.5 MG/3 ML Neb Soln NEB SCH ×3 (02:14→09:15)
[2023-01-14 05:54] LABS: BASOPHILS ABSOLUTE AUTO 0.01 K/mm3 (0.01-0.08); BASOPHILS PERCENT AUTO 0.1 % (0.1-1.2); EOSINOPHILS ABSOLUTE AUTO 0.11 K/mm3 (0.04-0.54); EOSINOPHILS PERCENT AUTO 0.8 (0.8-7.0); HEMATOCRIT 32.9 % (40.1-51.0); IMMATURE GRAN ABSOLUTE AUTO 0.05 K/mm3 (0.00-0.10); IMMATURE GRAN PERCENT AUTO 0.3 % (<=1.0); LYMPHOCYTES ABSOLUTE AUTO 1.33 K/mm3 (1.32-3.57); LYMPHOCYTES PERCENT AUTO 9.1 % (21.8-53.1); MEAN CORPUSCULAR HEMOGLOBIN 30.6 pg (25.7-32.2); MEAN CORPUSCULAR HGB CONC 33.4 g/dl (32.2-35.5); MEAN CORPUSCULAR VOLUME 91.4 fl (79.0-92.2); MEAN PLATELET VOLUME 10.7 fl (9.4-12.3); MONOCYTES PERCENT AUTO 8.9 % (5.3-12.2); NEUTROPHILS ABSOLUTE AUTO 11.79 K/mm3 (1.78-5.38); NEUTROPHILS PERCENT AUTO 80.8 % (34.0-67.9); PLATELET COUNT,PLT 119 K/mm3 (163-337); WHITE BLOOD CELL COUNT,WBC 14.59 K/mm3 (4.23-9.07)
[2023-01-14 06:05] LABS: BUN/CREATININE RATIO 45.6 (14-18); CALCIUM 8.5 mg/dL (8.5-10.1); CREATININE 0.9 mg/dL (0.7-1.3); DIGOXIN 0.8 ng/mL (0.9-2.0); EST CRCL DRUG DOSING (CG) 69.02 mL/min; MAGNESIUM 1.9 mg/dL (1.8-2.4)
[2023-01-14 06:35] LABS: ANION GAP 2.2 (5-15); POTASSIUM,K 5.2 mEq/L (3.5-5.1)
[2023-01-14] MEDS ORDERED: predniSONE 10 MG Tab PO SCH (07:00)
[2023-01-14] MEDS: Nicotine 21 MG/24 Hr Patch TRDERM SCH (08:11)
[2023-01-14] MEDS: Rosuvastatin 10 MG Tab PO SCH (08:11)
[2023-01-14] MEDS: Aspirin 81 MG Tab.Chew PO SCH (08:11)
[2023-01-14] MEDS: Cefdinir 300 MG Cap PO SCH (08:12)
[2023-01-14] MEDS: Diltiazem 300 MG Cap.CD PO SCH (08:12)
[2023-01-14] MEDS: Digoxin 125 MCG Tab PO SCH (08:12)
[2023-01-14] MEDS: Sertraline 25 MG Tab PO SCH (08:12)
[2023-01-14] MEDS: guaiFENesin 600 MG Tab.ER PO SCH (08:12)
[2023-01-14] MEDS: Metoprolol Tartrate 50 MG Tab PO SCH (08:13)
[2023-01-14] MEDS: NALOXONE HCL PO SCH (08:13)
[2023-01-14] MEDS: Apixaban 5 MG Tab PO SCH (08:13)
[2023-01-14] MEDS: BUPRENORPHINE HCL PO SCH (08:13)
[2023-01-14] MEDS: Formoterol/Mometasone 200-5 MCG 8.8 GM Inhaler IH SCH (09:32)
[2023-01-14 11:48] VITALS: PULSE 67
[2023-01-14 13:47] VITALS: BP 110/52
== END 2023-01-14 13:30 | disposition home or self-care (01) | DRG 189 ==
LOC: JD.ED 07:58 → JD.ICU 10:58 → JD.MS 01-12 07:48
PROVIDERS: ADMIT Hospitalist; ATTEND Hospitalist
PROC: 4A13XR1 Monitoring of Arterial Saturation, Peripheral, External Approach (ICD-10-PCS; principal; 2023-01-03)
PROC: 5A09357 Assistance with Respiratory Ventilation, Less than 24 Consecutive Hours, Continuous Positive Airway Pressure (ICD-10-PCS; 2023-01-03)
DX: J96.01 Acute respiratory failure with hypoxia (principal); J44.1 Chronic obstructive pulmonary disease with (acute) exacerbation; I48.92 Unspecified atrial flutter; I48.91 Unspecified atrial fibrillation; J44.9 Chronic obstructive pulmonary disease, unspecified; J96.02 Acute respiratory failure with hypercapnia; E11.65 Type 2 diabetes mellitus with hyperglycemia; Z20.822 Contact with and (suspected) exposure to COVID-19; F41.9 Anxiety disorder, unspecified; E11.9 Type 2 diabetes mellitus without complications; M19.90 Unspecified osteoarthritis, unspecified site; I08.1 Rheumatic disorders of both mitral and tricuspid valves; I25.10 Atherosclerotic heart disease of native coronary artery without angina pectoris; J98.4 Other disorders of lung; I10 Essential (primary) hypertension; E78.00 Pure hypercholesterolemia, unspecified; F17.210 Nicotine dependence, cigarettes, uncomplicated; Z98.890 Other specified postprocedural states; Z98.49 Cataract extraction status, unspecified eye; Z85.820 Personal history of malignant melanoma of skin; Z79.84 Long term (current) use of oral hypoglycemic drugs; Z99.81 Dependence on supplemental oxygen; Z79.899 Other long term (current) drug therapy
CPT/HCPCS: 0241U; 36415; 36600; 70450; 71045; 71046; 71275; 80048; 80053; 80162; 81001; 82803; 82947; 83540; 83605; 83735; 84100; 84443; 84466; 84484; 85025; 93005; 93306; 94640; 94660; 94667; 94668; 94762; 96365; 96366; 96375; 97162; 97165; 97530; 97535; 99285; 93010; 99222; 99232; 99239; A9270-GY; J0456; J0696; J1940; J2930; J3475; J3490; J7050; J7512; J7612-GY; J7620-GY; Q9967

== ENCOUNTER 2023-01-16 19:42 | Inpatient (IN) | payer OTHER ==
[2023-01-16] MEDS ORDERED: Sodium Chloride 0.9% 500 ML IV ONE ×2 (20:00→20:48)
[2023-01-16] MEDS ORDERED: Sodium Chloride 0.9% 10 ML Syringe FLUSH PRN ×2 (20:07→22:38)
[2023-01-16 20:14] LABS: BASOPHILS ABSOLUTE AUTO 0.02 K/mm3 (0.01-0.08); BASOPHILS PERCENT AUTO 0.1 % (0.1-1.2); EOSINOPHILS PERCENT AUTO 0 (0.8-7.0); HEMATOCRIT 24.4 % (40.1-51.0); IMMATURE GRAN ABSOLUTE AUTO 0.15 K/mm3 (0.00-0.10); IMMATURE GRAN PERCENT AUTO 0.4 % (<=1.0); LYMPHOCYTES ABSOLUTE AUTO 0.55 K/mm3 (1.32-3.57); LYMPHOCYTES PERCENT AUTO 1.5 % (21.8-53.1); MEAN CORPUSCULAR HEMOGLOBIN 30.7 pg (25.7-32.2); MEAN CORPUSCULAR HGB CONC 32.8 g/dl (32.2-35.5); MEAN CORPUSCULAR VOLUME 93.5 fl (79.0-92.2); MEAN PLATELET VOLUME 10.5 fl (9.4-12.3); MONOCYTES ABSOLUTE AUTO 1.18 K/mm3 (0.30-0.82); MONOCYTES PERCENT AUTO 3.2 % (5.3-12.2); NEUTROPHILS ABSOLUTE AUTO 34.56 K/mm3 (1.78-5.38); NEUTROPHILS PERCENT AUTO 94.8 % (34.0-67.9); PLATELET COUNT,PLT 136 K/mm3 (163-337); RED BLOOD CELL COUNT 2.61 M/mm3 (4.63-6.08); WHITE BLOOD CELL COUNT,WBC 36.46 K/mm3 (4.23-9.07)
[2023-01-16 20:31] LABS: BASE EXCESS ARTERIAL 8.6 (-2-2.0); BICARBONATE,ARTERIAL 34.8 meq/L (22.0-26.0); O2 SATURATION ARTERIAL 96.2 % (96.0-97.0); PCO2 ARTERIAL 63.1 mmHg (35.0-45.0)
[2023-01-16 20:34] LABS: A/G RATIO 0.8 (1-2); ALBUMIN 2.1 g/dl (3.4-5.0); ANION GAP 6.9 (5-15); BUN/CREATININE RATIO 42.6 (14-18); CALCIUM 7.7 mg/dL (8.5-10.1); DIGOXIN 1.9 ng/mL (0.9-2.0); EST CRCL DRUG DOSING (CG) 26.94 mL/min; POTASSIUM,K 5.9 mEq/L (3.5-5.1); PROTEIN TOTAL,TP 4.8 g/dl (6.4-8.2)
[2023-01-16 20:48] LABS: CREATININE 2.3 mg/dL (0.7-1.3)
[2023-01-16 20:52] LABS: SLIDE REVIEW ABNORMAL SMEAR
[2023-01-16] MEDS ORDERED: Phenylephrine 10 MG in Sodium Chloride 0.9% 99 ML IV SCH ×2 (21:30→22:45)
[2023-01-16] MEDS: Phenylephrine 10 MG in Sodium Chloride 0.9% 99 ML IV SCH ×2 (21:37→23:56)
[2023-01-16] MEDS ORDERED: Insulin Regular, Human 100 Units/ML 3 ML Vial IV ONE (21:43)
[2023-01-16] MEDS ORDERED: Sodium Chloride 0.9% 250 ML IV SCH (22:30)
[2023-01-16] MEDS ORDERED: Acetaminophen 325 MG Tab PO PRN (22:38)
[2023-01-16] MEDS ORDERED: Albuterol/Ipratropium 3.0-0.5 MG/3 ML Neb Soln NEB PRN (22:38)
[2023-01-16] MEDS ORDERED: Sodium Polystyrene Sulfonate 15 GM/60 ML Susp 60 ML Bot PO ONE (22:38)
[2023-01-16] MEDS ORDERED: Docusate Sodium 100 MG Cap PO PRN (22:38)
[2023-01-16] MEDS ORDERED: Ondansetron 4 MG/2 ML SDV IV PRN (22:38)
[2023-01-16] MEDS ORDERED: Ondansetron 4 MG Tab.DIS PO PRN (22:38)
[2023-01-16] MEDS ORDERED: Piperacillin/Tazobactam 4.5 GM in Sodium Chloride 0.9% 100 ML IV SCH (22:45)
[2023-01-16] MEDS ORDERED: Piperacillin/Tazobactam 4.5 GM in Sodium Chloride 0.9% 100 ML IV ONE (23:00)
[2023-01-16] MEDS ORDERED: Furosemide 40 MG/4 ML VIAL IVPUSH ONE (23:03)
[2023-01-16] MEDS ORDERED: VANCOmycin 1.25 GM/250 ML 1.25 GM in Premix Bag 1 BAG IV ONE (23:30)
[2023-01-16 23:43] LABS: CORONAVIRUS COVID-19 NAA NEGATIVE (NEGATIVE); INFLUENZA A NAA NEGATIVE (NEGATIVE); RESPIRATORY SYNCYTIAL VIR NAA NEGATIVE (NEGATIVE)
[2023-01-17] MEDS: Insulin Lispro 100 Unit/ML 3 ML KwikPen SUBCUT SCH ×5 (01:13→23:34)
[2023-01-17] MEDS: Albuterol/Ipratropium 3.0-0.5 MG/3 ML Neb Soln NEB SCH ×10 (01:37→21:06)
[2023-01-17] MEDS: Phenylephrine 10 MG in Sodium Chloride 0.9% 99 ML IV SCH ×4 (01:52→08:23)
[2023-01-17 05:10] LABS: BASOPHILS ABSOLUTE AUTO 0.02 K/mm3 (0.01-0.08); BASOPHILS PERCENT AUTO 0.1 % (0.1-1.2); EOSINOPHILS ABSOLUTE AUTO 0.06 K/mm3 (0.04-0.54); EOSINOPHILS PERCENT AUTO 0.2 (0.8-7.0); HEMATOCRIT 28.2 % (40.1-51.0); IMMATURE GRAN PERCENT AUTO 0.3 % (<=1.0); LYMPHOCYTES ABSOLUTE AUTO 0.94 K/mm3 (1.32-3.57); LYMPHOCYTES PERCENT AUTO 2.9 % (21.8-53.1); MEAN CORPUSCULAR HEMOGLOBIN 30.6 pg (25.7-32.2); MEAN CORPUSCULAR HGB CONC 33.7 g/dl (32.2-35.5); MEAN PLATELET VOLUME 10.6 fl (9.4-12.3); MONOCYTES ABSOLUTE AUTO 1.32 K/mm3 (0.30-0.82); MONOCYTES PERCENT AUTO 4.1 % (5.3-12.2); NEUTROPHILS ABSOLUTE AUTO 29.61 K/mm3 (1.78-5.38); NEUTROPHILS PERCENT AUTO 92.4 % (34.0-67.9); PLATELET COUNT,PLT 146 K/mm3 (163-337); WHITE BLOOD CELL COUNT,WBC 32.05 K/mm3 (4.23-9.07)
[2023-01-17 05:30] LABS: HEMOGLOBIN 9.5 gm/dl (13.7-17.5)
[2023-01-17 05:31] LABS: A/G RATIO 0.7 (1-2); BILIRUBIN TOTAL 1.3 mg/dL (0.2-1.0); CALCIUM 7.6 mg/dL (8.5-10.1); EST CRCL DRUG DOSING (CG) 30.98 mL/min; MAGNESIUM 1.8 mg/dL (1.8-2.4); PROTEIN TOTAL,TP 4.7 g/dl (6.4-8.2)
[2023-01-17 06:16] LABS: SLIDE REVIEW ABNORMAL SMEAR
[2023-01-17] MEDS: Piperacillin/Tazobactam 4.5 GM in Sodium Chloride 0.9% 100 ML IV SCH ×3 (06:33→21:44)
[2023-01-17] MEDS: guaiFENesin 600 MG Tab.ER PO SCH (08:24)
[2023-01-17] MEDS: Nicotine 21 MG/24 Hr Patch TRDERM SCH (08:24)
[2023-01-17] MEDS: Sertraline 25 MG Tab PO SCH (08:24)
[2023-01-17] MEDS: Aspirin 81 MG Tab.Chew PO SCH (08:24)
[2023-01-17 08:42] LABS: BORDETELLA PARAPERT IS1001 Not Detected (Not Detected)
[2023-01-17] MEDS ORDERED: Metoprolol Succinate 50 MG Tab.ER PO SCH (09:00)
[2023-01-17] MEDS ORDERED: Phenylephrine 1% 10 MG/ML SDV ONE (09:07)
[2023-01-17] MEDS: Digoxin 125 MCG Tab PO SCH (09:19)
[2023-01-17] MEDS: Rosuvastatin 10 MG Tab PO SCH (09:20)
[2023-01-17] MEDS: Metoprolol Succinate 50 MG Tab.ER PO SCH (09:20)
[2023-01-17] MEDS ORDERED: Phenylephrine 25 MG in Sodium Chloride 0.9% 247.5 ML IV SCH (10:00)
[2023-01-17] MEDS ORDERED: Furosemide 40 MG/4 ML VIAL IVPUSH ONE (13:18)
[2023-01-17] MEDS ORDERED: Diltiazem 125 MG in Sodium Chloride 0.9% 100 ML IV SCH (23:45)
[2023-01-18] MEDS: Albuterol/Ipratropium 3.0-0.5 MG/3 ML Neb Soln NEB SCH ×7 (01:52→22:07)
[2023-01-18] MEDS: Piperacillin/Tazobactam 4.5 GM in Sodium Chloride 0.9% 100 ML IV SCH ×2 (05:23→13:58)
[2023-01-18] MEDS: Insulin Lispro 100 Unit/ML 3 ML KwikPen SUBCUT SCH ×4 (05:24→22:03)
[2023-01-18 06:29] LABS: BASOPHILS ABSOLUTE AUTO 0.01 K/mm3 (0.01-0.08); BASOPHILS PERCENT AUTO 0.1 % (0.1-1.2); EOSINOPHILS ABSOLUTE AUTO 0.05 K/mm3 (0.04-0.54); EOSINOPHILS PERCENT AUTO 0.3 (0.8-7.0); HEMATOCRIT 28.3 % (40.1-51.0); HEMOGLOBIN 9.2 gm/dl (13.7-17.5); IMMATURE GRAN ABSOLUTE AUTO 0.03 K/mm3 (0.00-0.10); IMMATURE GRAN PERCENT AUTO 0.2 % (<=1.0); LYMPHOCYTES ABSOLUTE AUTO 0.78 K/mm3 (1.32-3.57); LYMPHOCYTES PERCENT AUTO 4.9 % (21.8-53.1); MEAN CORPUSCULAR HEMOGLOBIN 30.4 pg (25.7-32.2); MEAN CORPUSCULAR HGB CONC 32.5 g/dl (32.2-35.5); MEAN CORPUSCULAR VOLUME 93.4 fl (79.0-92.2); MEAN PLATELET VOLUME 10.1 fl (9.4-12.3); MONOCYTES ABSOLUTE AUTO 0.66 K/mm3 (0.30-0.82); MONOCYTES PERCENT AUTO 4.1 % (5.3-12.2); NEUTROPHILS PERCENT AUTO 90.4 % (34.0-67.9); PLATELET COUNT,PLT 138 K/mm3 (163-337); RED BLOOD CELL COUNT 3.03 M/mm3 (4.63-6.08); WHITE BLOOD CELL COUNT,WBC 15.93 K/mm3 (4.23-9.07)
[2023-01-18 06:49] LABS: ANION GAP 0.3 (5-15); EST CRCL DRUG DOSING (CG) 64.28 mL/min; POTASSIUM,K 3.3 mEq/L (3.5-5.1)
[2023-01-18 06:59] LABS: SLIDE REVIEW ABNORMAL SMEAR
[2023-01-18] MEDS: Rosuvastatin 10 MG Tab PO SCH (08:21)
[2023-01-18] MEDS: Sertraline 25 MG Tab PO SCH (08:21)
[2023-01-18] MEDS: Aspirin 81 MG Tab.Chew PO SCH (08:22)
[2023-01-18] MEDS: Nicotine 21 MG/24 Hr Patch TRDERM SCH (08:22)
[2023-01-18] MEDS: Metoprolol Succinate 50 MG Tab.ER PO SCH (08:23)
[2023-01-18] MEDS: guaiFENesin 600 MG Tab.ER PO SCH (08:23)
[2023-01-18] MEDS: Digoxin 125 MCG Tab PO SCH (08:23)
[2023-01-18] MEDS: Diltiazem IR 30 MG Tab PO SCH ×3 (09:12→21:19)
[2023-01-19] MEDS: Albuterol/Ipratropium 3.0-0.5 MG/3 ML Neb Soln NEB SCH ×6 (01:13→21:06)
[2023-01-19] MEDS: Diltiazem IR 30 MG Tab PO SCH ×2 (02:05→08:22)
[2023-01-19] MEDS: Insulin Lispro 100 Unit/ML 3 ML KwikPen SUBCUT SCH ×4 (04:45→21:47)
[2023-01-19 05:59] LABS: ANION GAP 4.2 (5-15); CALCIUM 8.2 mg/dL (8.5-10.1); CREATININE 0.9 mg/dL (0.7-1.3); EST CRCL DRUG DOSING (CG) 72.01 mL/min; POTASSIUM,K 3.2 mEq/L (3.5-5.1)
[2023-01-19 06:05] LABS: BASOPHILS ABSOLUTE AUTO 0.01 K/mm3 (0.01-0.08); BASOPHILS PERCENT AUTO 0.1 % (0.1-1.2); EOSINOPHILS ABSOLUTE AUTO 0.06 K/mm3 (0.04-0.54); EOSINOPHILS PERCENT AUTO 0.4 (0.8-7.0); HEMATOCRIT 28.9 % (40.1-51.0); HEMOGLOBIN 9.2 gm/dl (13.7-17.5); IMMATURE GRAN ABSOLUTE AUTO 0.04 K/mm3 (0.00-0.10); IMMATURE GRAN PERCENT AUTO 0.3 % (<=1.0); LYMPHOCYTES ABSOLUTE AUTO 0.91 K/mm3 (1.32-3.57); LYMPHOCYTES PERCENT AUTO 6.8 % (21.8-53.1); MEAN CORPUSCULAR HGB CONC 31.8 g/dl (32.2-35.5); MEAN CORPUSCULAR VOLUME 94.1 fl (79.0-92.2); MEAN PLATELET VOLUME 10.5 fl (9.4-12.3); MONOCYTES ABSOLUTE AUTO 0.64 K/mm3 (0.30-0.82); MONOCYTES PERCENT AUTO 4.8 % (5.3-12.2); NEUTROPHILS ABSOLUTE AUTO 11.68 K/mm3 (1.78-5.38); NEUTROPHILS PERCENT AUTO 87.6 % (34.0-67.9); PLATELET COUNT,PLT 161 K/mm3 (163-337); RED BLOOD CELL COUNT 3.07 M/mm3 (4.63-6.08); WHITE BLOOD CELL COUNT,WBC 13.34 K/mm3 (4.23-9.07)
[2023-01-19] MEDS: Rosuvastatin 10 MG Tab PO SCH (08:23)
[2023-01-19] MEDS: guaiFENesin 600 MG Tab.ER PO SCH (08:23)
[2023-01-19] MEDS: Metoprolol Succinate 50 MG Tab.ER PO SCH (08:23)
[2023-01-19] MEDS: Digoxin 125 MCG Tab PO SCH (08:24)
[2023-01-19] MEDS: Sertraline 25 MG Tab PO SCH (08:24)
[2023-01-19] MEDS: Aspirin 81 MG Tab.Chew PO SCH (08:24)
[2023-01-19] MEDS: Nicotine 21 MG/24 Hr Patch TRDERM SCH (08:25)
[2023-01-19] MEDS ORDERED: Furosemide 20 MG/2 ML VIAL IVPUSH ONE (09:06)
[2023-01-19] MEDS: Potassium Chloride 10 MEQ in Premix Bag 1 BAG IV SCH ×5 (10:18→18:05)
[2023-01-19] MEDS: Diltiazem 180 MG Cap.CD PO SCH (10:22)
[2023-01-20] MEDS: Albuterol/Ipratropium 3.0-0.5 MG/3 ML Neb Soln NEB SCH ×3 (01:49→09:07)
[2023-01-20] MEDS: Insulin Lispro 100 Unit/ML 3 ML KwikPen SUBCUT SCH ×2 (04:18→11:01)
[2023-01-20 05:48] LABS: ANION GAP 2.4 (5-15); BUN/CREATININE RATIO 27.8 (14-18); CALCIUM 8.2 mg/dL (8.5-10.1); CREATININE 0.9 mg/dL (0.7-1.3); EST CRCL DRUG DOSING (CG) 72.01 mL/min; POTASSIUM,K 3.4 mEq/L (3.5-5.1)
[2023-01-20] MEDS: Metoprolol Succinate 50 MG Tab.ER PO SCH ×2 (07:37→09:05)
[2023-01-20] MEDS: Diltiazem 180 MG Cap.CD PO SCH ×2 (07:38→09:03)
[2023-01-20] MEDS: Digoxin 125 MCG Tab PO SCH ×2 (07:38→09:03)
[2023-01-20] MEDS: guaiFENesin 600 MG Tab.ER PO SCH ×2 (07:39→09:04)
[2023-01-20] MEDS: Sertraline 25 MG Tab PO SCH ×2 (07:39→09:05)
[2023-01-20] MEDS: Aspirin 81 MG Tab.Chew PO SCH ×2 (07:39→09:02)
[2023-01-20] MEDS: Nicotine 21 MG/24 Hr Patch TRDERM SCH ×2 (07:40→09:03)
[2023-01-20] MEDS: Rosuvastatin 10 MG Tab PO SCH ×2 (07:40→09:03)
[2023-01-20 14:02] VITALS: PULSE 85
[2023-01-20 14:07] VITALS: BP 103/49
== END 2023-01-20 14:20 | disposition home health service (06) | DRG 682 ==
LOC: JD.ED 19:42 → JD.ICU 22:38
PROVIDERS: ADMIT Hospitalist; ATTEND Hospitalist
PROC: 4A13XR1 Monitoring of Arterial Saturation, Peripheral, External Approach (ICD-10-PCS; principal; 2023-01-16)
PROC: 30233N1 Transfusion of Nonautologous Red Blood Cells into Peripheral Vein, Percutaneous Approach (ICD-10-PCS; 2023-01-16)
PROC: 0T9B70Z Drainage of Bladder with Drainage Device, Via Natural or Artificial Opening (ICD-10-PCS; 2023-01-16)
DX: N17.9 Acute kidney failure, unspecified (principal); I50.23 Acute on chronic systolic (congestive) heart failure; I11.0 Hypertensive heart disease with heart failure; J96.21 Acute and chronic respiratory failure with hypoxia; R09.02 Hypoxemia; J96.22 Acute and chronic respiratory failure with hypercapnia; E87.1 Hypo-osmolality and hyponatremia; E87.29 Other acidosis; E11.9 Type 2 diabetes mellitus without complications; K92.2 Gastrointestinal hemorrhage, unspecified; J90 Pleural effusion, not elsewhere classified; J81.1 Chronic pulmonary edema; I48.92 Unspecified atrial flutter; D62 Acute posthemorrhagic anemia; I13.0 Hypertensive heart and chronic kidney disease with heart failure and stage 1 through stage 4 chronic kidney disease, or unspecified chronic kidney disease; E87.20 Acidosis, unspecified; J44.9 Chronic obstructive pulmonary disease, unspecified; I48.91 Unspecified atrial fibrillation; E78.00 Pure hypercholesterolemia, unspecified; M19.90 Unspecified osteoarthritis, unspecified site; F41.9 Anxiety disorder, unspecified; E87.5 Hyperkalemia; I95.9 Hypotension, unspecified; E87.8 Other disorders of electrolyte and fluid balance, not elsewhere classified; Z66 Do not resuscitate; E11.65 Type 2 diabetes mellitus with hyperglycemia; N18.2 Chronic kidney disease, stage 2 (mild); Z99.81 Dependence on supplemental oxygen; Z79.899 Other long term (current) drug therapy; Z79.01 Long term (current) use of anticoagulants; Z98.49 Cataract extraction status, unspecified eye; Z98.890 Other specified postprocedural states; Z79.82 Long term (current) use of aspirin; Z87.891 Personal history of nicotine dependence
CPT/HCPCS: 0241U; 36415; 36430; 36600; 71045; 71046; 80048; 80053; 80162; 80202; 82272; 82803; 82947; 83735; 83880; 84484; 85025; 86850; 86900; 86901; 86922; 87040; 87486; 87581; 87633; 87641; 93005; 94640; 94667; 94668; 94762; 97110; 97116; 97162; 97165; 97530; 97535; 93010; 96360; 99285; 99285-25; A9270-GY; J1815; J1815-GY; J1940; J2370; J2543; J3370; J3480; J3490; J7030; J7050; J7620-GY; P9016

== ENCOUNTER 2023-01-26 14:46 | Inpatient (IN) | payer OTHER ==
[2023-01-26 16:46] LABS: BASOPHILS ABSOLUTE AUTO 0.02 K/mm3 (0.01-0.08); BASOPHILS PERCENT AUTO 0.4 % (0.1-1.2); EOSINOPHILS ABSOLUTE AUTO 0.09 K/mm3 (0.04-0.54); EOSINOPHILS PERCENT AUTO 1.7 (0.8-7.0); HEMOGLOBIN 10.2 gm/dl (13.7-17.5); IMMATURE GRAN ABSOLUTE AUTO 0.01 K/mm3 (0.00-0.10); IMMATURE GRAN PERCENT AUTO 0.2 % (<=1.0); LYMPHOCYTES ABSOLUTE AUTO 0.73 K/mm3 (1.32-3.57); LYMPHOCYTES PERCENT AUTO 13.8 % (21.8-53.1); MEAN CORPUSCULAR HEMOGLOBIN 30.7 pg (25.7-32.2); MEAN CORPUSCULAR HGB CONC 31.9 g/dl (32.2-35.5); MEAN CORPUSCULAR VOLUME 96.4 fl (79.0-92.2); MEAN PLATELET VOLUME 8.9 fl (9.4-12.3); MONOCYTES PERCENT AUTO 7.6 % (5.3-12.2); NEUTROPHILS ABSOLUTE AUTO 4.03 K/mm3 (1.78-5.38); NEUTROPHILS PERCENT AUTO 76.3 % (34.0-67.9); PLATELET COUNT,PLT 191 K/mm3 (163-337); RED BLOOD CELL COUNT 3.32 M/mm3 (4.63-6.08); WHITE BLOOD CELL COUNT,WBC 5.28 K/mm3 (4.23-9.07)
[2023-01-26 17:06] LABS: INR 1.05; PROTHROMBIN TIME 11.2 SECONDS (9.7-12.0)
[2023-01-26 17:07] LABS: PTT,PARTIAL THROMBOPLSTIN TIME 22.8 SECONDS (21.7-31.4)
[2023-01-26 17:16] LABS: A/G RATIO 0.5 (1-2); ALANINE AMINOTRANSFERASE,ALT 50 U/L (16-63); ALKALINE PHOSPHATASE 82 U/L (46-116); ANION GAP 4.4 (5-15); ASPARTATE AMNIOTRANSFERASE,AST 30 U/L (15-37); BILIRUBIN TOTAL 0.7 mg/dL (0.2-1.0); BLOOD UREA NITROGEN,BUN 13 mg/dL (7-18); BUN/CREATININE RATIO 16.3 (14-18); CALCIUM 8.4 mg/dL (8.5-10.1); CARBON DIOXIDE,CO2 37 mEq/L (21-32); CHLORIDE,CL 102 mEq/L (98-107); CREATININE 0.8 mg/dL (0.7-1.3); ESTIMATED GFR 93 mL/min (>60); GLUCOSE RANDOM 115 mg/dL (70-99); MAGNESIUM 1.8 mg/dL (1.8-2.4); POTASSIUM,K 4.4 mEq/L (3.5-5.1); PROTEIN TOTAL,TP 6.2 g/dl (6.4-8.2); SODIUM,NA 139 mEq/L (136-145); TROPONIN I HIGH SENSITIVITY 10 pg/mL (<=76)
[2023-01-26 17:18] LABS: SLIDE REVIEW ABNORMAL SMEAR
[2023-01-26] MEDS ORDERED: Iopamidol 612 MG/ML 100 ML Bottle IVPUSH ONE (18:51)
[2023-01-26] MEDS ORDERED: Sodium Chloride 0.9% 10 ML Syringe FLUSH ONE (18:52)
[2023-01-26] MEDS ORDERED: Piperacillin/Tazobactam 4.5 GM in Sodium Chloride 0.9% 100 ML IV STA (20:03)
[2023-01-26] MEDS ORDERED: Albuterol/Ipratropium 3.0-0.5 MG/3 ML Neb Soln NEB PRN (22:08)
[2023-01-27] MEDS: Albuterol/Ipratropium 3.0-0.5 MG/3 ML Neb Soln NEB SCH ×6 (01:13→21:17)
[2023-01-27] MEDS: Piperacillin/Tazobactam 4.5 GM in Sodium Chloride 0.9% 100 ML IV SCH ×2 (03:29→12:14)
[2023-01-27] MEDS ORDERED: Acetaminophen 325 MG Tab PO PRN (05:14)
[2023-01-27 05:56] LABS: HEMATOCRIT 30.3 % (40.1-51.0); HEMOGLOBIN 9.6 gm/dl (13.7-17.5)
[2023-01-27 08:30] LABS: BASOPHILS ABSOLUTE AUTO 0.02 K/mm3 (0.01-0.08); BASOPHILS PERCENT AUTO 0.4 % (0.1-1.2); EOSINOPHILS ABSOLUTE AUTO 0.13 K/mm3 (0.04-0.54); EOSINOPHILS PERCENT AUTO 2.6 (0.8-7.0); HEMATOCRIT 29.9 % (40.1-51.0); HEMOGLOBIN 9.4 gm/dl (13.7-17.5); IMMATURE GRAN ABSOLUTE AUTO 0.01 K/mm3 (0.00-0.10); IMMATURE GRAN PERCENT AUTO 0.2 % (<=1.0); LYMPHOCYTES ABSOLUTE AUTO 0.75 K/mm3 (1.32-3.57); MEAN CORPUSCULAR HEMOGLOBIN 30.3 pg (25.7-32.2); MEAN CORPUSCULAR HGB CONC 31.4 g/dl (32.2-35.5); MEAN CORPUSCULAR VOLUME 96.5 fl (79.0-92.2); MEAN PLATELET VOLUME 8.7 fl (9.4-12.3); MONOCYTES ABSOLUTE AUTO 0.42 K/mm3 (0.30-0.82); MONOCYTES PERCENT AUTO 8.4 % (5.3-12.2); NEUTROPHILS ABSOLUTE AUTO 3.68 K/mm3 (1.78-5.38); NEUTROPHILS PERCENT AUTO 73.4 % (34.0-67.9); PLATELET COUNT,PLT 174 K/mm3 (163-337); WHITE BLOOD CELL COUNT,WBC 5.01 K/mm3 (4.23-9.07)
[2023-01-27 08:56] LABS: A/G RATIO 0.5 (1-2); ALBUMIN 1.7 g/dl (3.4-5.0); BILIRUBIN TOTAL 0.8 mg/dL (0.2-1.0); BUN/CREATININE RATIO 13.8 (14-18); CALCIUM 8.1 mg/dL (8.5-10.1); CREATININE 0.8 mg/dL (0.7-1.3); EST CRCL DRUG DOSING (CG) 80.25 mL/min; PROTEIN TOTAL,TP 5.4 g/dl (6.4-8.2)
[2023-01-27] MEDS ORDERED: Docusate Sodium 100 MG Cap PO PRN (10:51)
[2023-01-27] MEDS ORDERED: Piperacillin/Tazobactam 4.5 GM in Sodium Chloride 0.9% 100 ML IV SCH (11:30)
[2023-01-27] MEDS: cefTRIAXone 2 GM in Sodium Chloride 0.9% 100 ML IV SCH (11:51)
[2023-01-27] MEDS ORDERED: Albuterol 6.7 GM Inhaler INH PRN (12:05)
[2023-01-27] MEDS: Diltiazem 180 MG Cap.CD PO SCH (12:25)
[2023-01-27] MEDS: Metoprolol Succinate 50 MG Tab.ER PO SCH (12:25)
[2023-01-27] MEDS: Apixaban 5 MG Tab PO SCH ×2 (12:26→20:35)
[2023-01-27] MEDS: Aspirin 81 MG Tab.EC PO SCH (12:26)
[2023-01-27] MEDS: Digoxin 125 MCG Tab PO SCH (12:26)
[2023-01-27] MEDS: Cholecalciferol (Vitamin D3) 25 MCG Tab PO SCH (12:26)
[2023-01-27] MEDS: guaiFENesin 600 MG Tab.ER PO SCH ×2 (12:26→20:35)
[2023-01-27] MEDS: Sertraline 25 MG Tab PO SCH (12:26)
[2023-01-27] MEDS: Tiotropium Bromide 4 GM Inhalation Spray (2.5mcg/1 dose; 10 doses) INH SCH (12:59)
[2023-01-27] MEDS: Nicotine 21 MG/24 Hr Patch TRDERM SCH (15:15)
[2023-01-27] MEDS: Acetaminophen 325 MG Tab PO PRN ×2 (16:26→22:29)
[2023-01-27] MEDS: Albuterol/Ipratropium 3.0-0.5 MG/3 ML Neb Soln NEB PRN (16:32)
[2023-01-27] MEDS: Rosuvastatin 10 MG Tab PO SCH (20:35)
[2023-01-28] MEDS: Albuterol/Ipratropium 3.0-0.5 MG/3 ML Neb Soln NEB SCH ×6 (01:43→21:06)
[2023-01-28 05:50] LABS: A/G RATIO 0.5 (1-2); ALBUMIN 1.8 g/dl (3.4-5.0); ANION GAP 5.1 (5-15); BILIRUBIN TOTAL 0.6 mg/dL (0.2-1.0); BUN/CREATININE RATIO 14.4 (14-18); CALCIUM 8.3 mg/dL (8.5-10.1); CREATININE 0.9 mg/dL (0.7-1.3); EST CRCL DRUG DOSING (CG) 70.59 mL/min; POTASSIUM,K 4.1 mEq/L (3.5-5.1); PROTEIN TOTAL,TP 5.7 g/dl (6.4-8.2)
[2023-01-28 05:57] LABS: BASOPHILS ABSOLUTE AUTO 0.03 K/mm3 (0.01-0.08); BASOPHILS PERCENT AUTO 0.6 % (0.1-1.2); EOSINOPHILS ABSOLUTE AUTO 0.16 K/mm3 (0.04-0.54); EOSINOPHILS PERCENT AUTO 3.3 (0.8-7.0); HEMATOCRIT 31.5 % (40.1-51.0); HEMOGLOBIN 9.9 gm/dl (13.7-17.5); IMMATURE GRAN ABSOLUTE AUTO 0.01 K/mm3 (0.00-0.10); IMMATURE GRAN PERCENT AUTO 0.2 % (<=1.0); LYMPHOCYTES ABSOLUTE AUTO 0.74 K/mm3 (1.32-3.57); LYMPHOCYTES PERCENT AUTO 15.4 % (21.8-53.1); MEAN CORPUSCULAR HEMOGLOBIN 30.3 pg (25.7-32.2); MEAN CORPUSCULAR HGB CONC 31.4 g/dl (32.2-35.5); MEAN CORPUSCULAR VOLUME 96.3 fl (79.0-92.2); MONOCYTES ABSOLUTE AUTO 0.42 K/mm3 (0.30-0.82); MONOCYTES PERCENT AUTO 8.8 % (5.3-12.2); NEUTROPHILS ABSOLUTE AUTO 3.43 K/mm3 (1.78-5.38); NEUTROPHILS PERCENT AUTO 71.7 % (34.0-67.9); PLATELET COUNT,PLT 211 K/mm3 (163-337); RED BLOOD CELL COUNT 3.27 M/mm3 (4.63-6.08); WHITE BLOOD CELL COUNT,WBC 4.79 K/mm3 (4.23-9.07)
[2023-01-28] MEDS: Albuterol/Ipratropium 3.0-0.5 MG/3 ML Neb Soln NEB PRN ×2 (07:14→12:39)
[2023-01-28] MEDS: Acetaminophen 325 MG Tab PO PRN ×2 (08:26→20:36)
[2023-01-28] MEDS: methylPREDNISolone Sodium Succinate 125 MG/2 ML SDV IVPUSH SCH ×2 (08:26→16:05)
[2023-01-28] MEDS: Apixaban 5 MG Tab PO SCH ×2 (08:27→20:36)
[2023-01-28] MEDS: Diltiazem 180 MG Cap.CD PO SCH (08:27)
[2023-01-28] MEDS: Aspirin 81 MG Tab.EC PO SCH (08:27)
[2023-01-28] MEDS: Digoxin 125 MCG Tab PO SCH (08:27)
[2023-01-28] MEDS: Cholecalciferol (Vitamin D3) 25 MCG Tab PO SCH (08:27)
[2023-01-28] MEDS: guaiFENesin 600 MG Tab.ER PO SCH ×2 (08:27→20:36)
[2023-01-28] MEDS: Metoprolol Succinate 50 MG Tab.ER PO SCH (08:29)
[2023-01-28] MEDS: Nicotine 21 MG/24 Hr Patch TRDERM SCH (08:30)
[2023-01-28] MEDS: Sertraline 25 MG Tab PO SCH (08:30)
[2023-01-28] MEDS: Tiotropium Bromide 4 GM Inhalation Spray (2.5mcg/1 dose; 10 doses) INH SCH (09:14)
[2023-01-28] MEDS: cefTRIAXone 2 GM in Sodium Chloride 0.9% 100 ML IV SCH (10:53)
[2023-01-28] MEDS: Rosuvastatin 10 MG Tab PO SCH (20:36)
[2023-01-29] MEDS ORDERED: Aluminum Hydroxide/Magnesium Hydroxide/Simethicone Susp 30 ML Cup PO PRN (00:02)
[2023-01-29] MEDS: methylPREDNISolone Sodium Succinate 125 MG/2 ML SDV IVPUSH SCH ×3 (00:23→18:03)
[2023-01-29] MEDS: Acetaminophen 325 MG Tab PO PRN ×3 (02:16→20:58)
[2023-01-29] MEDS: Albuterol/Ipratropium 3.0-0.5 MG/3 ML Neb Soln NEB SCH ×6 (02:34→21:56)
[2023-01-29] MEDS: Nicotine 21 MG/24 Hr Patch TRDERM SCH (08:51)
[2023-01-29] MEDS: guaiFENesin 600 MG Tab.ER PO SCH ×2 (08:54→20:57)
[2023-01-29] MEDS: Sertraline 25 MG Tab PO SCH (08:55)
[2023-01-29] MEDS: Metoprolol Succinate 50 MG Tab.ER PO SCH (08:55)
[2023-01-29] MEDS: Digoxin 125 MCG Tab PO SCH (08:56)
[2023-01-29] MEDS: Aspirin 81 MG Tab.EC PO SCH (08:56)
[2023-01-29] MEDS: Cholecalciferol (Vitamin D3) 25 MCG Tab PO SCH (08:56)
[2023-01-29] MEDS: Apixaban 5 MG Tab PO SCH ×2 (08:56→20:58)
[2023-01-29] MEDS: Diltiazem 180 MG Cap.CD PO SCH (08:57)
[2023-01-29] MEDS: Tiotropium Bromide 4 GM Inhalation Spray (2.5mcg/1 dose; 10 doses) INH SCH (09:26)
[2023-01-29] MEDS: cefTRIAXone 2 GM in Sodium Chloride 0.9% 100 ML IV SCH (13:58)
[2023-01-29] MEDS: LORazepam 0.5 MG Tab PO SCH (20:56)
[2023-01-29] MEDS: Rosuvastatin 10 MG Tab PO SCH (20:58)
[2023-01-30] MEDS: Albuterol/Ipratropium 3.0-0.5 MG/3 ML Neb Soln NEB SCH ×3 (01:48→09:45)
[2023-01-30] MEDS: methylPREDNISolone Sodium Succinate 125 MG/2 ML SDV IVPUSH SCH ×2 (02:00→09:17)
[2023-01-30 05:26] LABS: EOSINOPHILS PERCENT AUTO 0 (0.8-7.0); HEMATOCRIT 33.2 % (40.1-51.0); HEMOGLOBIN 10.2 gm/dl (13.7-17.5); IMMATURE GRAN ABSOLUTE AUTO 0.01 K/mm3 (0.00-0.10); IMMATURE GRAN PERCENT AUTO 0.2 % (<=1.0); LYMPHOCYTES ABSOLUTE AUTO 0.25 K/mm3 (1.32-3.57); MEAN CORPUSCULAR HEMOGLOBIN 29.9 pg (25.7-32.2); MEAN CORPUSCULAR HGB CONC 30.7 g/dl (32.2-35.5); MEAN CORPUSCULAR VOLUME 97.4 fl (79.0-92.2); MONOCYTES ABSOLUTE AUTO 0.18 K/mm3 (0.30-0.82); MONOCYTES PERCENT AUTO 2.8 % (5.3-12.2); NEUTROPHILS ABSOLUTE AUTO 5.88 K/mm3 (1.78-5.38); PLATELET COUNT,PLT 230 K/mm3 (163-337); RED BLOOD CELL COUNT 3.41 M/mm3 (4.63-6.08); WHITE BLOOD CELL COUNT,WBC 6.32 K/mm3 (4.23-9.07)
[2023-01-30 05:50] LABS: SLIDE REVIEW ABNORMAL SMEAR
[2023-01-30 05:55] LABS: ANION GAP 6.1 (5-15); BUN/CREATININE RATIO 23.3 (14-18); CALCIUM 8.3 mg/dL (8.5-10.1); CREATININE 0.9 mg/dL (0.7-1.3); EST CRCL DRUG DOSING (CG) 71.98 mL/min; POTASSIUM,K 5.1 mEq/L (3.5-5.1)
[2023-01-30] MEDS: Diltiazem 180 MG Cap.CD PO SCH (09:15)
[2023-01-30] MEDS: guaiFENesin 600 MG Tab.ER PO SCH (09:15)
[2023-01-30] MEDS: Metoprolol Succinate 50 MG Tab.ER PO SCH (09:16)
[2023-01-30] MEDS: Digoxin 125 MCG Tab PO SCH (09:16)
[2023-01-30] MEDS: LORazepam 0.5 MG Tab PO SCH (09:16)
[2023-01-30] MEDS: Apixaban 5 MG Tab PO SCH (09:16)
[2023-01-30] MEDS: Nicotine 21 MG/24 Hr Patch TRDERM SCH (09:17)
[2023-01-30] MEDS: Cholecalciferol (Vitamin D3) 25 MCG Tab PO SCH (09:17)
[2023-01-30] MEDS: Aspirin 81 MG Tab.EC PO SCH (09:17)
[2023-01-30] MEDS: Sertraline 25 MG Tab PO SCH (09:17)
[2023-01-30] MEDS: Tiotropium Bromide 4 GM Inhalation Spray (2.5mcg/1 dose; 10 doses) INH SCH (09:45)
[2023-01-30] MEDS: cefTRIAXone 2 GM in Sodium Chloride 0.9% 100 ML IV SCH (10:15)
[2023-01-30 11:26] VITALS: BP 120/80; PULSE 81
== END 2023-01-30 12:00 | disposition home or self-care (01) | DRG 193 ==
LOC: JD.ED 14:46 → JD.MS 21:05
PROVIDERS: ADMIT Internal Medicine; ATTEND Internal Medicine
DX: J18.9 Pneumonia, unspecified organism (principal); J96.21 Acute and chronic respiratory failure with hypoxia; J96.22 Acute and chronic respiratory failure with hypercapnia; I48.20 Chronic atrial fibrillation, unspecified; J44.1 Chronic obstructive pulmonary disease with (acute) exacerbation; J44.0 Chronic obstructive pulmonary disease with (acute) lower respiratory infection; R64 Cachexia; I50.9 Heart failure, unspecified; E78.00 Pure hypercholesterolemia, unspecified; M19.90 Unspecified osteoarthritis, unspecified site; F41.9 Anxiety disorder, unspecified; H91.90 Unspecified hearing loss, unspecified ear; I48.0 Paroxysmal atrial fibrillation; K66.1 Hemoperitoneum; J44.9 Chronic obstructive pulmonary disease, unspecified; Z99.81 Dependence on supplemental oxygen; Z79.01 Long term (current) use of anticoagulants; Z68.22 Body mass index [BMI] 22.0-22.9, adult; Z79.82 Long term (current) use of aspirin; Z79.899 Other long term (current) drug therapy; Z87.891 Personal history of nicotine dependence
CPT/HCPCS: 36415; 71045; 71260; 74177; 80053; 83735; 83880; 84484; 85025; 85379; 85610; 85730; 86140; 87040 ×2; 93005; 96374; 99285; J2543; J3490 ×2; Q9967; 80048; 85014; 85018; 93010; 94640; 94667; 94668; 94761; A9270-GY; J0696; J2930; J7620-GY

== ENCOUNTER 2023-09-06 21:37 | Inpatient (IN) | payer OTHER ==
[2023-09-06] MEDS: Sodium Chloride 0.9% 10 ML Syringe FLUSH PRN (22:02)
[2023-09-06 22:15] LABS: BASOPHILS ABSOLUTE AUTO 0.1 K/mm3 (0.0-0.2); BASOPHILS PERCENT AUTO 1.3 % (0.0-1.0); EOSINOPHILS ABSOLUTE AUTO 1.1 K/mm3 (0.0-0.4); HEMOGLOBIN 15.6 gm/dl (14.0-18.0); IMMATURE GRAN ABSOLUTE AUTO 0.02 K/mm3 (0.00-0.05); IMMATURE GRAN PERCENT AUTO 0.2 % (0.0-0.4); LYMPHOCYTES ABSOLUTE AUTO 2.8 K/mm3 (1.0-4.8); LYMPHOCYTES PERCENT AUTO 33.3 % (24.0-44.0); MEAN CORPUSCULAR HEMOGLOBIN 30.7 pg (28.0-32.0); MEAN CORPUSCULAR HGB CONC 33.9 g/dl (32.0-36.0); MEAN CORPUSCULAR VOLUME 90.6 fl (83.0-99.0); MEAN PLATELET VOLUME 9.9 fl (9.4-12.4); MONOCYTES ABSOLUTE AUTO 0.8 K/mm3 (0.0-0.8); MONOCYTES PERCENT AUTO 10.1 % (0.0-8.0); NEUTROPHILS ABSOLUTE AUTO 3.5 K/mm3 (1.8-7.7); NEUTROPHILS PERCENT AUTO 42.1 % (41.0-71.0); PLATELET COUNT,PLT 161 K/mm3 (150-400); RED BLOOD CELL COUNT 5.08 M/mm3 (4.52-5.90); WHITE BLOOD CELL COUNT,WBC 8.29 K/mm3 (3.9-11.3)
[2023-09-06 22:41] LABS: A/G RATIO 0.9 (1-2); ALBUMIN 3.4 g/dl (3.4-5.0); ANION GAP 9.6 (5-15); BILIRUBIN TOTAL 0.4 mg/dL (0.2-1.0); BUN/CREATININE RATIO 16.4 (14-18); CALCIUM 8.8 mg/dL (8.5-10.1); CREATININE 1.1 mg/dL (0.7-1.3); EST CRCL DRUG DOSING (CG) 55.83 mL/min; MAGNESIUM 1.9 mg/dL (1.8-2.4); POTASSIUM,K 4.6 mEq/L (3.5-5.1); PROTEIN TOTAL,TP 7.2 g/dl (6.4-8.2)
[2023-09-06 22:46] LABS: T4 FREE 1.04 ng/dL (0.76-1.46); TSH 5.492 uIU/mL (0.358-3.74)
[2023-09-07] MEDS ORDERED: Docusate Sodium 100 MG Cap PO PRN (07:59)
[2023-09-07] MEDS ORDERED: Albuterol/Ipratropium 3.0-0.5 MG/3 ML Neb Soln NEB PRN (07:59)
[2023-09-07] MEDS ORDERED: Acetaminophen 325 MG Tab PO PRN (07:59)
[2023-09-07] MEDS ORDERED: Ondansetron 4 MG/2 ML SDV IV PRN (07:59)
[2023-09-07] MEDS ORDERED: Albuterol 0.083% 2.5 MG/3 ML Neb Soln NEB PRN (07:59)
[2023-09-07] MEDS: Budesonide 0.5 MG/2 ML Neb Susp INH SCH (08:39)
[2023-09-07] MEDS: Tiotropium Bromide 4 GM Inhalation Spray (2.5mcg/1 dose; 10 doses) INH SCH (08:39)
[2023-09-07] MEDS: Arformoterol 15 MCG/2 ML Neb Soln INH SCH (08:39)
[2023-09-07] MEDS ORDERED: Enoxaparin 40 MG/0.4 ML Syringe SUBCUT SCH (09:00)
[2023-09-07] MEDS ORDERED: Furosemide 40 MG Tab PO SCH (09:00)
[2023-09-07] MEDS ORDERED: Furosemide 20 MG Tab PO SCH (09:00)
[2023-09-07] MEDS ORDERED: Metoprolol Succinate 50 MG Tab.ER PO SCH (09:00)
[2023-09-07] MEDS: Nicotine 21 MG/24 Hr Patch TRDERM SCH (09:02)
[2023-09-07] MEDS: guaiFENesin 600 MG Tab.ER PO SCH (09:02)
[2023-09-07] MEDS: Apixaban 5 MG Tab PO SCH (09:07)
[2023-09-07] MEDS: Diltiazem 180 MG Cap.CD PO SCH (09:10)
[2023-09-07] MEDS: Aspirin 81 MG Tab.EC PO SCH (09:10)
[2023-09-07] MEDS: Metoprolol Succinate 50 MG Tab.ER PO SCH (09:10)
[2023-09-07] MEDS: Sacubitril/Valsartan 1 EACH Tablet PO SCH (09:11)
[2023-09-07] MEDS: Sertraline 25 MG Tab PO SCH (09:11)
[2023-09-07] MEDS: Empagliflozin 25 MG Tab PO SCH (09:13)
[2023-09-07] MEDS: Rosuvastatin 10 MG Tab PO SCH (20:01)
[2023-09-08 05:00] LABS: BASOPHILS ABSOLUTE AUTO 0.1 K/mm3 (0.0-0.2); BASOPHILS PERCENT AUTO 1.3 % (0.0-1.0); EOSINOPHILS ABSOLUTE AUTO 0.8 K/mm3 (0.0-0.4); EOSINOPHILS PERCENT AUTO 12.3 % (0.0-6.0); HEMATOCRIT 42.8 % (42.0-52.0); HEMOGLOBIN 14.3 gm/dl (14.0-18.0); IMMATURE GRAN ABSOLUTE AUTO 0.02 K/mm3 (0.00-0.05); IMMATURE GRAN PERCENT AUTO 0.3 % (0.0-0.4); LYMPHOCYTES ABSOLUTE AUTO 1.9 K/mm3 (1.0-4.8); MEAN CORPUSCULAR HEMOGLOBIN 30.4 pg (28.0-32.0); MEAN CORPUSCULAR HGB CONC 33.4 g/dl (32.0-36.0); MEAN CORPUSCULAR VOLUME 91.1 fl (83.0-99.0); MEAN PLATELET VOLUME 10.3 fl (9.4-12.4); MONOCYTES ABSOLUTE AUTO 0.6 K/mm3 (0.0-0.8); MONOCYTES PERCENT AUTO 8.7 % (0.0-8.0); NEUTROPHILS PERCENT AUTO 47.4 % (41.0-71.0); PLATELET COUNT,PLT 128 K/mm3 (150-400); WHITE BLOOD CELL COUNT,WBC 6.34 K/mm3 (3.9-11.3)
[2023-09-08 05:25] LABS: A/G RATIO 0.8 (1-2); ALBUMIN 2.9 g/dl (3.4-5.0); ANION GAP 8.2 (5-15); BILIRUBIN TOTAL 0.4 mg/dL (0.2-1.0); BUN/CREATININE RATIO 18.9 (14-18); CALCIUM 8.4 mg/dL (8.5-10.1); CREATININE 0.9 mg/dL (0.7-1.3); EST CRCL DRUG DOSING (CG) 66.76 mL/min; MAGNESIUM 1.9 mg/dL (1.8-2.4); POTASSIUM,K 4.2 mEq/L (3.5-5.1); PROTEIN TOTAL,TP 6.4 g/dl (6.4-8.2)
[2023-09-08 08:43] VITALS: BP 130/78
[2023-09-08 09:15] VITALS: PULSE 74
== END 2023-09-08 10:18 | disposition home or self-care (01) | DRG 309 ==
LOC: JD.ED 21:37 → JD.MS 23:15
PROVIDERS: ADMIT Internal Medicine; ATTEND Internal Medicine
DX: I48.92 Unspecified atrial flutter (principal); I48.20 Chronic atrial fibrillation, unspecified; J96.11 Chronic respiratory failure with hypoxia; I48.4 Atypical atrial flutter; I95.9 Hypotension, unspecified; E86.0 Dehydration; E78.5 Hyperlipidemia, unspecified; I10 Essential (primary) hypertension; J44.9 Chronic obstructive pulmonary disease, unspecified; Z79.2 Long term (current) use of antibiotics; E11.9 Type 2 diabetes mellitus without complications; F41.9 Anxiety disorder, unspecified; E78.00 Pure hypercholesterolemia, unspecified; F17.210 Nicotine dependence, cigarettes, uncomplicated; M19.90 Unspecified osteoarthritis, unspecified site; E89.0 Postprocedural hypothyroidism; Z88.8 Allergy status to other drugs, medicaments and biological substances; Z79.82 Long term (current) use of aspirin; Z79.01 Long term (current) use of anticoagulants; Z98.49 Cataract extraction status, unspecified eye; Z98.890 Other specified postprocedural states; Z99.81 Dependence on supplemental oxygen; Z79.899 Other long term (current) drug therapy
CPT/HCPCS: 36415; 80053; 80162; 83735; 84439; 84443; 84481; 84484; 85025; 93005; 99285; J3490; 93010; 94640; 94760; 94761; 97161-GP; 99283; A9270-GY

== ENCOUNTER 2023-10-12 12:13 | Emergency (ER) | payer OTHER ==
[2023-10-12 12:55] LABS: BASOPHILS ABSOLUTE AUTO 0.1 K/mm3 (0.0-0.2); EOSINOPHILS ABSOLUTE AUTO 0.5 K/mm3 (0.0-0.4); EOSINOPHILS PERCENT AUTO 10.2 % (0.0-6.0); HEMATOCRIT 44.7 % (42.0-52.0); HEMOGLOBIN 14.7 gm/dl (14.0-18.0); IMMATURE GRAN ABSOLUTE AUTO 0.01 K/mm3 (0.00-0.05); IMMATURE GRAN PERCENT AUTO 0.2 % (0.0-0.4); LYMPHOCYTES ABSOLUTE AUTO 1.4 K/mm3 (1.0-4.8); LYMPHOCYTES PERCENT AUTO 27.7 % (24.0-44.0); MEAN CORPUSCULAR HEMOGLOBIN 29.6 pg (28.0-32.0); MEAN CORPUSCULAR HGB CONC 32.9 g/dl (32.0-36.0); MEAN CORPUSCULAR VOLUME 89.9 fl (83.0-99.0); MONOCYTES ABSOLUTE AUTO 0.6 K/mm3 (0.0-0.8); NEUTROPHILS ABSOLUTE AUTO 2.5 K/mm3 (1.8-7.7); NEUTROPHILS PERCENT AUTO 48.9 % (41.0-71.0); PLATELET COUNT,PLT 131 K/mm3 (150-400); RED BLOOD CELL COUNT 4.97 M/mm3 (4.52-5.90); WHITE BLOOD CELL COUNT,WBC 5.02 K/mm3 (3.9-11.3)
[2023-10-12 13:20] LABS: HEMOGLOBIN A1C 5.2 %
[2023-10-12 13:31] LABS: A/G RATIO 0.9 (1-2); ALBUMIN 3.3 g/dl (3.4-5.0); ANION GAP 6.9 (5-15); BILIRUBIN TOTAL 0.6 mg/dL (0.2-1.0); BUN/CREATININE RATIO 16.4 (14-18); CALCIUM 8.6 mg/dL (8.5-10.1); CREATININE 1.1 mg/dL (0.7-1.3); EST CRCL DRUG DOSING (CG) 54.39 mL/min; POTASSIUM,K 4.9 mEq/L (3.5-5.1); PROTEIN TOTAL,TP 6.8 g/dl (6.4-8.2)
[2023-10-12 14:27] VITALS: BP 125/74; PULSE 70
== END 2023-10-12 14:13 | disposition home or self-care (01) ==
LOC: JD.ED 12:13
DX: E11.65 Type 2 diabetes mellitus with hyperglycemia (principal); L98.9 Disorder of the skin and subcutaneous tissue, unspecified; I48.91 Unspecified atrial fibrillation; E78.00 Pure hypercholesterolemia, unspecified; I10 Essential (primary) hypertension; J44.9 Chronic obstructive pulmonary disease, unspecified; M19.90 Unspecified osteoarthritis, unspecified site; Z79.01 Long term (current) use of anticoagulants; Z79.82 Long term (current) use of aspirin; Z79.899 Other long term (current) drug therapy; Z88.8 Allergy status to other drugs, medicaments and biological substances
CPT/HCPCS: 36415; 80053; 83036; 84443; 85025; 99283; 99284

== ENCOUNTER 2024-06-02 11:31 | Inpatient (IN) | payer OTHER ==
[2024-06-02] MEDS: Albuterol/Ipratropium 3.0-0.5 MG/3 ML Neb Soln NEB SCH ×3 (13:05→17:11)
[2024-06-02 13:08] LABS: BASOPHILS ABSOLUTE AUTO 0.1 K/mm3 (0.0-0.2); BASOPHILS PERCENT AUTO 0.9 % (0.0-1.0); EOSINOPHILS ABSOLUTE AUTO 0.7 K/mm3 (0.0-0.4); EOSINOPHILS PERCENT AUTO 10.7 % (0.0-6.0); HEMATOCRIT 41.9 % (42.0-52.0); HEMOGLOBIN 14.1 gm/dl (14.0-18.0); IMMATURE GRAN ABSOLUTE AUTO 0.02 K/mm3 (0.00-0.05); IMMATURE GRAN PERCENT AUTO 0.3 % (0.0-0.4); LYMPHOCYTES ABSOLUTE AUTO 1.5 K/mm3 (1.0-4.8); MEAN CORPUSCULAR HEMOGLOBIN 30.7 pg (28.0-32.0); MEAN CORPUSCULAR HGB CONC 33.7 g/dl (32.0-36.0); MEAN CORPUSCULAR VOLUME 91.1 fl (83.0-99.0); MEAN PLATELET VOLUME 9.8 fl (9.4-12.4); MONOCYTES ABSOLUTE AUTO 0.7 K/mm3 (0.0-0.8); MONOCYTES PERCENT AUTO 9.8 % (0.0-8.0); NEUTROPHILS ABSOLUTE AUTO 3.7 K/mm3 (1.8-7.7); NEUTROPHILS PERCENT AUTO 55.3 % (41.0-71.0); PLATELET COUNT,PLT 160 K/mm3 (150-400); WHITE BLOOD CELL COUNT,WBC 6.71 K/mm3 (3.9-11.3)
[2024-06-02 13:34] LABS: LACTIC ACID 0.5 mmol/L (0.4-2.0)
[2024-06-02 13:41] LABS: ANION GAP 8.1 (5-15); BILIRUBIN TOTAL 0.5 mg/dL (0.2-1.0); BUN/CREATININE RATIO 17.5 (14-18); CALCIUM 8.4 mg/dL (8.5-10.1); CREATININE 0.8 mg/dL (0.7-1.3); EST CRCL DRUG DOSING (CG) 79.78 mL/min; POTASSIUM,K 4.1 mEq/L (3.5-5.1)
[2024-06-02] MEDS: methylPREDNISolone Sodium Succinate 125 MG/2 ML SDV IVPUSH ONE (13:53)
[2024-06-02] MEDS: Sodium Chloride 0.9% 10 ML Syringe FLUSH PRN (13:53)
[2024-06-02] MEDS: Furosemide 20 MG/2 ML VIAL IVPUSH ONE (15:25)
[2024-06-02] MEDS: Magnesium Sulfate/Water Premix 2 GM in Premix Bag 1 BAG IV ONE (15:32)
[2024-06-02] MEDS: Sodium Chloride 0.9% 250 ML IV SCH (15:32)
[2024-06-02] MEDS ORDERED: Ondansetron 4 MG/2 ML SDV IV PRN (15:54)
[2024-06-02] MEDS ORDERED: Acetaminophen 325 MG Tab PO PRN (15:54)
[2024-06-02] MEDS ORDERED: LORazepam 2 MG/ML SDV IVPUSH PRN (15:56)
[2024-06-02] MEDS: Doxycycline 100 MG in Sodium Chloride 0.9% 100 ML IV SCH (17:40)
[2024-06-02] MEDS: Metoprolol Succinate 50 MG Tab.ER PO SCH (17:40)
[2024-06-02] MEDS ORDERED: Non-Formulary Medication 1 Each (Rosuvastatin Calcium 20 MG Tablet) PO SCH (21:00)
[2024-06-02] MEDS: Non-Formulary Medication 1 Each (Sacubitril/Valsartan 1 EACH Tablet) PO SCH (22:19)
[2024-06-02] MEDS: Apixaban 5 MG Tab PO SCH (22:42)
[2024-06-02] MEDS: Rosuvastatin 10 MG Tab PO SCH (22:42)
[2024-06-02] MEDS: Sacubitril/Valsartan 1 EACH Tablet PO SCH (22:42)
[2024-06-03 05:52] LABS: HEMATOCRIT 42.5 % (42.0-52.0); HEMOGLOBIN 14.2 gm/dl (14.0-18.0); MEAN CORPUSCULAR HEMOGLOBIN 30.5 pg (28.0-32.0); MEAN CORPUSCULAR HGB CONC 33.4 g/dl (32.0-36.0); MEAN CORPUSCULAR VOLUME 91.2 fl (83.0-99.0); MEAN PLATELET VOLUME 10.6 fl (9.4-12.4); PLATELET COUNT,PLT 160 K/mm3 (150-400); RED BLOOD CELL COUNT 4.66 M/mm3 (4.52-5.90); WHITE BLOOD CELL COUNT,WBC 7.31 K/mm3 (3.9-11.3)
[2024-06-03 06:08] LABS: A/G RATIO 0.9 (1-2); ALBUMIN 2.8 g/dl (3.4-5.0); ANION GAP 8.2 (5-15); BILIRUBIN TOTAL 0.4 mg/dL (0.2-1.0); BUN/CREATININE RATIO 22.5 (14-18); C-REACTIVE PROTEIN 0.92 mg/dL (<0.30); CALCIUM 8.1 mg/dL (8.5-10.1); CREATININE 0.8 mg/dL (0.7-1.3); EST CRCL DRUG DOSING (CG) 79.78 mL/min; POTASSIUM,K 4.2 mEq/L (3.5-5.1)
[2024-06-03] MEDS: methylPREDNISolone Sodium Succinate 125 MG/2 ML SDV IVPUSH SCH (08:11)
[2024-06-03] MEDS ORDERED: Metoprolol Tartrate 5 MG/5 ML SDV IVPUSH PRN (08:40)
[2024-06-03] MEDS: Metoprolol Succinate 25 MG Tab.ER PO ONE (08:47)
[2024-06-03 12:51] VITALS: BP 112/67; PULSE 115
== END 2024-06-03 13:14 | disposition home or self-care (01) | DRG 191 ==
LOC: JD.ED 11:31 → JD.ICU 14:39
PROVIDERS: ADMIT Internal Medicine; ATTEND Student in an Organized Health Care Education/Training Program
DX: J44.1 Chronic obstructive pulmonary disease with (acute) exacerbation (principal); I48.3 Typical atrial flutter; I50.42 Chronic combined systolic (congestive) and diastolic (congestive) heart failure; I48.91 Unspecified atrial fibrillation; I50.9 Heart failure, unspecified; H54.7 Unspecified visual loss; H26.9 Unspecified cataract; E78.00 Pure hypercholesterolemia, unspecified; I11.0 Hypertensive heart disease with heart failure; M19.90 Unspecified osteoarthritis, unspecified site; E11.9 Type 2 diabetes mellitus without complications; F41.9 Anxiety disorder, unspecified; F17.210 Nicotine dependence, cigarettes, uncomplicated; F15.90 Other stimulant use, unspecified, uncomplicated; Z99.81 Dependence on supplemental oxygen; Z79.01 Long term (current) use of anticoagulants; Z88.8 Allergy status to other drugs, medicaments and biological substances; Z79.1 Long term (current) use of non-steroidal anti-inflammatories (NSAID); Z79.51 Long term (current) use of inhaled steroids; Z79.82 Long term (current) use of aspirin; Z98.49 Cataract extraction status, unspecified eye; Z98.890 Other specified postprocedural states; Z90.89 Acquired absence of other organs; Z79.899 Other long term (current) drug therapy; Z79.02 Long term (current) use of antithrombotics/antiplatelets; Z71.6 Tobacco abuse counseling
CPT/HCPCS: 36415; 71045; 71045-26; 80053; 82947; 83605; 83880; 84484; 85025; 85027; 86140; 87040; 87428-QW; 93005; 93010; 94640; 94668; 94762; 96374; 99239; 99284; 99285-25; A9270-GY; J1940; J2919; J3475; J3490; J7050; J7620-GY

== ENCOUNTER 2024-11-01 18:56 | Inpatient (IN) | payer OTHER ==
[2024-11-01] MEDS ORDERED: Sodium Chloride 0.9% 10 ML Syringe FLUSH PRN (19:52)
[2024-11-01 20:20] LABS: BASOPHILS ABSOLUTE AUTO 0.1 K/mm3 (0.0-0.2); BASOPHILS PERCENT AUTO 0.8 % (0.0-1.0); EOSINOPHILS ABSOLUTE AUTO 0.6 K/mm3 (0.0-0.4); EOSINOPHILS PERCENT AUTO 7.5 % (0.0-6.0); HEMATOCRIT 42.1 % (42.0-52.0); IMMATURE GRAN ABSOLUTE AUTO 0.02 K/mm3 (0.00-0.05); IMMATURE GRAN PERCENT AUTO 0.3 % (0.0-0.4); LYMPHOCYTES ABSOLUTE AUTO 2.1 K/mm3 (1.0-4.8); LYMPHOCYTES PERCENT AUTO 26.3 % (24.0-44.0); MEAN CORPUSCULAR HGB CONC 33.3 g/dl (32.0-36.0); MEAN CORPUSCULAR VOLUME 93.3 fl (83.0-99.0); MEAN PLATELET VOLUME 10.1 fl (9.4-12.4); MONOCYTES ABSOLUTE AUTO 0.7 K/mm3 (0.0-0.8); MONOCYTES PERCENT AUTO 8.6 % (0.0-8.0); NEUTROPHILS ABSOLUTE AUTO 4.5 K/mm3 (1.8-7.7); NEUTROPHILS PERCENT AUTO 56.5 % (41.0-71.0); PLATELET COUNT,PLT 142 K/mm3 (150-400); RED BLOOD CELL COUNT 4.51 M/mm3 (4.52-5.90); WHITE BLOOD CELL COUNT,WBC 7.88 K/mm3 (3.9-11.3)
[2024-11-01] MEDS: Sodium Chloride 0.9% 500 ML IV ONE (20:22)
[2024-11-01] MEDS: Sodium Chloride 0.9% 100 ML IV SCH (20:55)
[2024-11-01] MEDS: Iopamidol 755 Mg/ML 100 ML Bottle IVPUSH ONE (20:55)
[2024-11-01 20:57] LABS: A/G RATIO 1.1 (1-2); ALBUMIN 3.3 g/dl (3.4-5.0); ANION GAP 3.1 (5-15); BILIRUBIN TOTAL 0.4 mg/dL (0.2-1.0); BUN/CREATININE RATIO 20.8 (14-18); CALCIUM 8.8 mg/dL (8.5-10.1); CREATININE 1.3 mg/dL (0.7-1.3); EST CRCL DRUG DOSING (CG) 50.69 mL/min; MAGNESIUM 1.9 mg/dL (1.8-2.4); POTASSIUM,K 4.1 mEq/L (3.5-5.1); PROTEIN TOTAL,TP 6.3 g/dl (6.4-8.2); TSH 3.934 uIU/mL (0.358-3.74)
[2024-11-01 21:17] LABS: T4 FREE 1.2 ng/dL (0.76-1.46)
[2024-11-01] MEDS: Albuterol/Ipratropium 3.0-0.5 MG/3 ML Neb Soln NEB SCH (21:35)
[2024-11-01 23:42] LABS: APPEARANCE,URINE CLEAR (Clear); BILIRUBIN,URINE NEGATIVE (Negative); COLOR,URINE YELLOW (Yellow); GLUCOSE,URINE NEGATIVE (Negative); KETONES,URINE NEGATIVE (Negative); LEUKOCYTE ESTERASE,URINE NEGATIVE (Negative); NITRITE,URINE NEGATIVE (Negative); OCCULT BLOOD,URINE NEGATIVE (Negative); PROTEIN,URINE NEGATIVE (Negative)
[2024-11-02] MEDS: Albuterol/Ipratropium 3.0-0.5 MG/3 ML Neb Soln NEB PRN (06:20)
[2024-11-02] MEDS ORDERED: Acetaminophen 325 MG Tab PO PRN (06:54)
[2024-11-02 08:05] LABS: CHOLESTEROL HDL 67 mg/dL (40-59); CHOLESTEROL LDL DIRECT 43 mg/dL (<100); CHOLESTEROL TOTAL 114 mg/dL (<200); TRIGLYCERIDES 40 mg/dL (<150)
[2024-11-02 15:13] VITALS: BP 116/60; PULSE 77
== END 2024-11-02 14:54 | disposition home or self-care (01) | DRG 69 ==
LOC: JD.ED 18:56 → JD.MS 23:35
PROVIDERS: ADMIT Family Medicine; ATTEND Student in an Organized Health Care Education/Training Program
DX: G45.9 Transient cerebral ischemic attack, unspecified (principal); I48.3 Typical atrial flutter; R20.2 Paresthesia of skin; R00.2 Palpitations; I10 Essential (primary) hypertension; J96.11 Chronic respiratory failure with hypoxia; J96.12 Chronic respiratory failure with hypercapnia; F17.200 Nicotine dependence, unspecified, uncomplicated; J44.9 Chronic obstructive pulmonary disease, unspecified; I48.91 Unspecified atrial fibrillation; I50.9 Heart failure, unspecified; H54.7 Unspecified visual loss; H91.90 Unspecified hearing loss, unspecified ear; E78.00 Pure hypercholesterolemia, unspecified; I11.0 Hypertensive heart disease with heart failure; M19.90 Unspecified osteoarthritis, unspecified site; F41.9 Anxiety disorder, unspecified; E11.9 Type 2 diabetes mellitus without complications; E89.0 Postprocedural hypothyroidism; I67.82 Cerebral ischemia; F17.210 Nicotine dependence, cigarettes, uncomplicated; Z87.81 Personal history of (healed) traumatic fracture; Z79.890 Hormone replacement therapy; Z85.820 Personal history of malignant melanoma of skin; Z98.49 Cataract extraction status, unspecified eye; Z98.890 Other specified postprocedural states; Z99.81 Dependence on supplemental oxygen; Z79.01 Long term (current) use of anticoagulants; Z79.899 Other long term (current) drug therapy; Z79.52 Long term (current) use of systemic steroids; Z79.82 Long term (current) use of aspirin; Z79.4 Long term (current) use of insulin; Z88.8 Allergy status to other drugs, medicaments and biological substances
CPT/HCPCS: 36415; 70450; 70450-26; 70496; 70496-26; 70498; 70498-26; 70551; 70551-26; 71045; 71045-26; 80053; 80061; 81003; 82947; 83735; 83880; 84439; 84443; 84484; 85025; 93005; 94640; 94761; 96360; 96361; 99285-25; A9270-GY; J7030; Q9967